=== PATIENT | female | born 1970 | race African-American/Black ===

== ENCOUNTER 2019-10-31 18:57 | Emergency (ER) | payer BC ==
[~2019-10-31] VITALS: Ht 170.2 cm; Wt 99.8 kg
[2019-10-31] MEDS ORDERED: HYDROCODONE/APAP 5MG-325MG TAB PO ONE (21:00)
[2019-10-31] MEDS ORDERED: HYDROCODONE/APAP 5MG-325MG TAB ONE (21:08)
--- NOTE | 2019-10-31 22:00 | Diagnostic Imaging Report ---
Exam: Left foot radiographs-3 views Clinical History: Pain and swelling. Comparison: None. Findings/Impression: No evidence of acute fracture or malalignment. Soft tissue edema in the foot. Small plantar calcaneal spur. Signed by: Dr. Lali Malone MD on 10/31/2019 9:56 PM
--- NOTE | 2019-10-31 22:17 | Emergency Department Note ---
History of Present Illnes History of Present Illness Chief Complaint: Extremity Trauma/Pain History of Present Illness This is a 49 year old female, with a history of hypertension, status post renal transplant, and chronic kidney disease who developed pain in the left great MTP, left great toe, and the soft tissue just below the lateral malleolus. She states it is difficult for her to sleep last night due to the pain. She used ice, and Tylenol without rub, without relief the pain. Patient states that she had lab work done in September, and they did check a uric acid level which was elevated. She was not placed on any uric acid lowering agents at that time, and she states that they recently located a stone in the donor kidney, which may have prompted them to check her uric acid level at that time. She aryan es any fever, chills, nausea, or vomiting. 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 Any updates have been documented here. Past Medical History Recent Fever: No Clinical Suspicion of Infectio: No New/Unexplained Change in Ment: No Past Medical History: Hypertension, Chronic Kidney Disease Past Surgical History: Tubal Ligation Other Surgery: POST KIDNEY TRANSPLANT X10YRS AGO Social History Smoking Cessation: Never Smoker Alcohol Use: None Any Illegal Drug Use: No TB Exposure/Symptoms: No Physically hurt or threatened: No Other Any Pre-Existing Lines (PICC,: No Review of Systems Review of Systems Constitutional: Reports no symptoms; Denies chills, Denies fever, Denies malaise EENTM: Denies no symptoms, Denies as per HPI, Denies eye pain, Denies blurred vision, Denies tearing, Denies double vision, Denies ear pain, Denies ear discharge, Denies nose pain, Denies nose congestion, Denies throat pain, Denies throat swelling, Denies mouth pain, Denies mouth swelling, Denies other Cardiovascular: Reports no symptoms Respiratory: Reports no symptoms Gastrointestinal: Reports no symptoms Musculoskeletal: Reports no symptoms Integumentary: Reports change in color (lateral aspect of the ventral left foot is erythematous, warm to touch) Neurological: Reports no symptoms Psychological: Reports no symptoms Review of other systems: All other systems negative Physical Exam Related Data Allergies: Coded Allergies: promethazine (Verified Allergy, Unknown, 10/31/19) Triage Vital Signs Vital Signs Date Time Temp Pulse Resp B/P (MAP) Pulse Ox O2 Delivery O2 Flow Rate FiO2 10/31/19 19:55 98.2 93 18 135/86 100 Room Air Physical Exam CONSTITUTIONAL Constitutional: Present well-developed, Present well-nourished, Present other (appears uncomfortable, due to left foot pain) HENT HENT: Present normocephalic, Present atraumatic, Present oropharynx clear/moist, Present nose normal HENT L/R: Present left ext ear normal, Present right ext ear normal EYES Eyes: Reports PERRL, Reports conjunctivae normal NECK Neck: Present ROM normal PULMONARY Pulmonary: Present effort normal, Present breath sounds normal CARDIOVASCULAR Cardiovascular: Present regular rhythm, Present heart sounds normal, Present capillary refill normal, Present normal rate GASTROINTESTINAL GENITOURINARY SKIN Skin: Present warm, Present dry, Present erythema (overlying the left MTP and the soft tissue just below the medial aspect of the) MUSCULOSKELETAL Musculoskeletal: Present edema, Present tenderness (warmth, tenderness, erythema, and mild edema of the left great MTP and base of the left great toe, as well as distal to the lateral malleolus with no fluctuance or crepitus;) NEUROLOGICAL Neurological: Present alert, Present oriented x 3 PSYCHOLOGICAL Psychological: Present mood/affect normal, Present judgement normal Results Laboratory Laboratory Laboratory Tests Test 10/31/19 20:16 Uric Acid 9.4 mg/dL (2.6-8.0) Lab results reviewed: Yes Laboratory comments CBC - WBC = 12.2, H/H = 10/34; CMP - nl except Cr = 2.0, ALT = 49, AST = 51, PT = 8.2; Uric Acid = 9.4; prolapse with Imaging Imaging results reviewed: Yes Impressions [place] [id number] Patient Name: KOKO ESPINOZA MR #: [id number] : 1970 Age/Sex: 49/F Req #: [id number] [facility] Physician: Ordered by: SILAS ENGEL MD Report #: [id number] Location: [facility] Room/Bed: Procedure: [id number] HOPD/FOOT 3 VIEW - HOPD Exam Date: 10/31/19 Exam Time: 2104 REPORT STATUS: Signed Exam: Left foot radiographs-3 views Clinical History: Pain and swelling. Comparison: None. Findings/Impression: No evidence of acute fracture or malalignment. Soft tissue edema in the foot. Small plantar calcaneal spur. Signed by: Dr. Kuldip Caldera MD on 10/31/2019 9:56 PM Dictated By: KULDIP CALDERA MD 55 Transcribed By: NIKHIL on 10/31/192155 COPY TO: SLIAS ENGEL MD~ Assessment & Plan Medical Decision Making MDM - Discussed with patient that it is difficult to know for sure, without aspirating the joint, whether or not her symptoms are a result of possible gout versus cellulitis/infection. The foot is exquisitely tender in the cites described in the physical exam. There is no sign of abscess or crepitus. Since patient's uric acid level is elevated, and the distribution of the pain in the foot is similar to that seen with gouty attacks, will treat patient for gout with a higher dose of prednisone,then her usual maintenance dose of 5 mg per day, since we cannot use other agents including NSAIDs and colchicine due to heard CKD. - Patient is provided with a prescription for antibiotics, that she is to start if she begins to have fever, chills, or progressive redness of the left foot. - Keep the left lower actually elevated to the level of the heart as much as possible to help with pain and swelling - Take medications as prescribed. - Once you have finished 7 days of prednisone 20 mg once daily, resume prednisone 5 mg daily, as your maintenance dose for your renal transplant. - Return to the emergency room if you develop high fever, worsening redness of your left foot, worsening pain, nausea, or vomiting. - If the prednisone helps resolve her symptoms, follow-up with your primary care physician for chronic management of gout. - F/u with your PCP, regarding this ER visit Assessment & Plan Final Impression: (1) Gout attack (2) Left foot pain (3) Elevated blood uric acid level (4) CKD (chronic kidney disease) (5) Renal transplant recipient Depart Disposition: HOME, SELF-CARE Last Vital Signs Date Time Temp Pulse Resp B/P (MAP) Pulse Ox O2 Delivery O2 Flow Rate FiO2 10/31/19 19:55 98.2 93 18 135/86 100 Room Air Home Meds Active Scripts Clindamycin Hcl (CLINDAMYCIN HCL) 150 Mg Capsule, 300 MG PO TID for infection, #30 TAB 0 Refills 2 TABS PO TID Prov:SILAS ENGEL MD 10/31/19 Ondansetron (ONDANSETRON ODT) 8 Mg Tab.rapdis, 4 MG PO Q6H PRN for nausea and vomiting, #20 TAB 0 Refills Prov:SILAS ENGEL MD 10/31/19 Prednisone (PREDNISONE) 20 Mg Tab, 1 TAB PO DAILY for inflammation, #7 TAB 0 Refills Prov:SILAS ENGEL MD 10/31/19 Medications in the ED Acetaminophen/ Hydrocodone Bitart 1 ea ONCE ONCE PO Last administered on 10/31/19at 21:08; Admin Dose 1 EA; Start 10/31/19 at 21:00; Stop 10/31/19 at 21:01; Status DC Acetaminophen/ Hydrocodone Bitart 1 ea STK-MED ONCE .ROUTE ; Start 10/31/19 at 21:08; Stop 10/31/19 at 21:05; Status DC SILAS ENGEL MD Oct 31, 2019 22:17
[2019-10-31] MEDS ORDERED: PREDNISONE20 MG PO (22:34)
[2019-10-31] MEDS ORDERED: ONDANSETRON ODT8 MG PO (22:35)
[2019-10-31] MEDS ORDERED: CLINDAMYCIN HC150 MG PO (22:37)
[2019-10-31] MEDS ORDERED: PREDNISONE 20 MG TAB PO ONE (22:45)
[2019-10-31] MEDS ORDERED: PREDNISONE 20 MG TAB ONE (23:02)
[2019-10-31 23:42] VITALS: BP 136/88
== END 2019-10-31 23:03 | disposition home or self-care (01) ==
LOC: FSED 20:20
DX: M79.672 Pain in left foot (principal); M10.9 Gout, unspecified; N18.9 Chronic kidney disease, unspecified; Z94.0 Kidney transplant status
CPT/HCPCS: 36415; 73630; 84550; 99283; J7512

== ENCOUNTER 2019-11-12 13:04 | Emergency (ER) | payer BC ==
[~2019-11-12] VITALS: Ht 170.2 cm; Wt 99.8 kg
[~2019-11-12 13:04] MED LIST: CLINDAMYCIN HC150 MG PO; ONDANSETRON ODT8 MG PO; PREDNISONE20 MG PO
[2019-11-12] MEDS ORDERED: HYDROCODONE/APAP 5MG-325MG TAB PO PRN (13:45)
[2019-11-12] MEDS ORDERED: PREDNISONE 20 MG TAB ONE (13:47)
--- OUTSIDE RECORDS SUMMARY | 2019-11-12 13:59 | XMS REPORT | Continuity of Care Document ---
Author Author Clarence [employer] Address Unknown Phone Unavailable Care Team Providers Care At Risk Paraprofessional Name Role Phone [employer] Unavailable Un available Problems Problem Status Onset Date Classification Date Reported Comments Source Acute upper respiratory infection, unspecified 03/18/2017 03/21/2017 [facility] VOMITING Active 03/17/2017 [facility] Discharge Diagnosis: Acute upper respiratory infection 05/07/2015 05/10/2015 [facility] Discharge Diagnosis: UTI (urinary tract infection) 05/07/2015 05/10/2015 [facility] WEAKNESS Active 05/06/2015 [facility] Discharge Diagnosis: Chronic renal insufficiency 12/18/2013 12/20/2013 [facility] Discharge Diagnosis: Generalized weakness 12/18/2013 12/20/2013 [facility] DIZZY/FATIGUE Active 12/17/2013 [facility] Acute renal failure syndrome (disorder) Resolved Problem 03/21/2017 [facility] Malignant neoplastic disease (disorder) Active Problem 03/21/2017 [facility] Medications Medication Details Route Status Patient Instructions Ordering Provider Order Date Source Sodium Chloride 0.9% (Bolus) IV 1,000 mL, 1,000 ml/hr, Infuse Over: 1 hr, Route: IV, ONCE, Priority: STAT, Dosing Weight 100 kg, Start date: 03/17/17 23:51:00 [employer] MAN, Stop date: 03/17/17 23:51:00 [employer] MAN No Longer Active 03/18/2017 [facility] Zofran 4 mg, Route: IVP, Drug form: INJ, ONCE, Dosing Weight 100, kg, Priority: STAT, Start date: 03/17/17 23:51:00 [employer]LLW[employer] MAN, Stop date: 03/17/17 23:51:00 [employer] MAN No Longe r Active 03/18/2017 [facility] Acetaminophen Notes: Do not ex ceed 4 gm/day. (Same as: Tylenol) No Longer Active 03/18/2017 [facility] 120 ACTUAT mometasone furoate 0.05 MG/AC TUAT Nasal Inhaler [Nasonex] 2 spray, NASAL, Daily, In each nostril, # 17 gm, 1 Refill(s) Active 05/07/2015 [facility] Acetaminophen 300 MG / butalbital 50 MG / Caffeine 40 MG Oral Capsule [Fioricet] 1 cap, PO, Q4H, PRN PRN Headache, Do not exceed 6 capsules in 24 hours, X 2 day, # 10 caplet, 0 Refill(s) No Longer Active 05/07/2015 [facility] Ciprofloxacin 250 MG Oral Tablet [Cipro] 250 mg = 1 tab, PO, Q12H, X 10 day, # 20 tab, 0 Refill(s) Active 05/07/2015 [facility] Cipro Notes: May interfere w/e nteral feedings - Take 1 hr before or 2 hrs after antacids, dairy pdt & minerals. On empty stomach. Inactive 05/07/2015 [facility] Saline Flush 0.9% Notes: (Same as: BD Posiflush) Inactive 12/18/2013 [facility] Allergies, Adverse Reactions, Alerts Substance Category Reaction Severity Reaction type Status Date Reported Comments Source Phenergan Assertion Drug allergy Active [facility] Immunizations Immunization Date Given Site Status Last Updated Comments Source influenza virus vaccine, inactivated 04/10/2013 Not Given [facility] Results Order Name Results Value Reference Range Date Interpretation Comments Source CHEM PANEL Lactic Acid Lvl 1.3 0.5 - 2.2 03/18/2017 [facility] RAPID Grp A Strep Scr Negative (03/18/17 12:57 AM) Negative 03/18/2017 [facility] CARDIAC ENZYMES Total CK 105 12 - 191 03/18/2017 [facility] CARDIAC ENZYMES Troponin-I <0.02 0.00 - 0.40 03/18/2017 [facility] CHEM PANEL Phosphorus 1.9 2.5 - 4.5 03/18/2017 [facility] CHEM PANEL Lipase Lvl 107 73 - 393 03/18/2017 [facility] CHEM PANEL Magnesium Lvl 1.7 1.8 - 2.4 03/18/2017 [facility] CHEM PANEL Calcium Lvl 8.8 8.5 - 10.5 03/18/2017 [facility] CHEM PANEL B/C Ratio 12 6 - 25 03/18/2017 [facility] CHEM PANEL Potassium Lvl 4.7 3.5 - 5.1 03/18/2017 [facility] CHEM PANEL Sodium Lvl 139 135 - 145 03/18/2017 [facility] CHEM PANEL Glucose Lvl 107 70 - 99 03/18/2017 [facility] CHEM PANEL AGAP 11.7 10.0 - 20.0 03/18/2017 [facility] CHEM PANEL CO2 26 24 - 32 03/18/2017 [facility] CHEM PANEL BUN 26 7 - 22 03/18/2017 [facility] CHEM PANEL Creatinine Lvl 2.13 0.50 - 1.40 03/18/2017 [facility] CHEM PANEL A/G Ratio 0.9 0.7 - 1.6 03/18/2017 [facility] CHEM PANEL eGFR 31 03/18/2017 Result Comment: The eGFR is calculated using the CKD-EPI formula. In most young, healthy individuals the eGFR will be >90 mL/min/1.73m2. The eGFR declines with age. An eGFR of 60-89 may be normal in some populations, particularly the elderly, for whom the CKD-EPI formula has not been extensively validated. Use of the eGFR is not recommended in the following populations:

Individuals with unstable creatinine concentrations, including patients and those with serious co-morbid conditions.

Patients with extremes in muscle mass or diet.

The data above are obtained from the National Kidney Disease Education Program (NKDEP) which additionally recommends that when the eGFR is used in patients with extremes of body mass index for purposes of drug dosing, the eGFR should be multiplied by the estimated BMI. [facility] CHEM PANEL ALANINE AMINOTRANSFERASE 37 0 - 65 03/18/2017 [facility] CHEM PANEL Albumin Lvl 3.8 3.5 - 5.0 03/18/2017 [facility] CHEM PANEL Globulin 4.1 2.7 - 4.2 03/18/2017 [facility] CHEM PANEL Total Protein 7.9 6.4 - 8.4 03/18/2017 [facility] CHEM PANEL Chloride Lvl 106 95 - 109 03/18/2017 [facility] CHEM PANEL ASPARTATE TRANSAMINASE 19 0 - 37 03/18/2017 [facility] CHEM PANEL Bili Total 0.7 0.2 - 1.3 03/18/2017 [facility] CHEM PANEL Alk Phos 90 39 - 136 03/18/2017 [facility] HEMATOLOGY WBC 7.7 3.7 - 10.4 03/18/2017 [facility] HEMATOLOGY RBC 4.05 4.20 - 5.40 03/18/2017 [facility] HEMATOLOGY MPV 6.8 7.4 - 10.4 03/18/2017 [facility] [place] MCHC 31.7 32.0 - 36.0 03/18/2017 [facility] [place] RDW 13.7 11.5 - 14.5 03/18/2017 [facility] Platelet 258 133 - 450 03/18/2017 [facility] Hgb 11.0 12.0 - 16.0 03/18/2017 [facility] [place] Hct 34.5 36.0 - 48.0 03/18/2017 [facility] [place] MCV 85.4 80.0 - 98.0 03/18/2017 [facility] [place] MCH 27.1 27.0 - 31.0 03/18/2017 [facility] [place] Lymphocytes 4.0 20.0 - 40.0 03/18/2017 [facility] [place] Segs 85.7 45.0 - 75.0 03/18/2017 [facility] [place] Monocytes # 0.8 0.0 - 0.8 03/18/2017 [facility] [place] Lymphocytes # 0.3 1.0 - 5.5 03/18/2017 [facility] [place] Segs-Bands # 6.6 1.5 - 8.1 03/18/2017 [facility] [place] Basophils 0.2 0.0 - 1.0 03/18/2017 [facility] [place] Toxic Gran Moder ate *ABN* (03/17/17 11:42 PM) None Seen 03/18/2017 [facility] [place] Eosinophils 0.1 0.0 - 4.0 03/18/2017 [facility] [place] Monocytes 10.0 2.0 - 12.0 03/18/2017 [facility] [place] Plt Morph Hedy l (03/17/17 11:42 PM) 03/18/2017 [facility] [place] RBC Morph Hedy l (03/17/17 11:42 PM) 03/18/2017 [facility] URINE AND STOOL UA Urobilinogen <=1.0 mg/dL 0.1 - 1.0 03/18/[address] [facility] [address] URINE AND STOOL UA Color Ltyellow 03/18/2017 [facility] URINE AND STOOL UA Leuk Est Negative (03/17/17 11:42 PM) Negative 03/18/2017 [facility] URINE AND STOOL UA Bacteria Occasional /HPF None Seen /HPF 03/18/[address] [facility] [address] URINE AND STOOL UA RBC 32 0 - 2 03/18/2017 [facility] URINE AND STOOL UA WBC 2 0 - 5 03/18/2017 [facility] URINE AND STOOL UA Nitrite Negative (03/17/17 11:42 PM) Negative 03/18/2017 [facility] URINE AND STOOL UA Blood Large *ABN* (03/17/17 11:42 PM) Negative 03/18/2017 [facility] URINE AND STOOL UA Sq Epi Occasional /LPF Few /LPF 03/18/2017 [facility] URINE AND STOOL UA Glucose Negative mg/dL Negative mg/dL 03/18/2017 [facility] URINE AND STOOL UA Bili Negative *NA* (03/17/17 11:42 PM) Negative 03/18/2017 [facility] URINE AND STOOL UA Ketones Negative mg/dL Negative mg/dL 03/18/2017 [facility] URINE AND STOOL UA Protein Negative mg/dL Negative mg/dL 03/18/2017 [facility] URINE AND STOOL UA pH 8.0 5.0 - 8.0 03/18/2017 [facility] URINE AND STOOL UA Turbidity Clear (03/17/17 11:42 PM) Clear 03/18/2017 [facility] URINE AND STOOL UA Spec Grav 1.013 <=1.030 03/18/2017 [facility] VIRAL - SEROLOGY Influ A Negative (03/17/17 11:42 PM) Negative 03/18/2017 [facility] VIRAL - SEROLOGY Influ B Negative (03/17/17 11:42 PM) Negative 03/18/2017 [facility] RAPID Grp A Strep Scr Negative (05/06/15 10:23 PM) Negative 05/07/2015 [facility] VIRAL - SEROLOGY Influ B Negative (05/06/15 10:23 PM) Negative 05/07/2015 [facility] VIRAL - SEROLOGY Influ A Negative (05/06/15 10:23 PM) Negative 05/07/2015 [facility] CHEM PANEL Globulin 3.9 2.0 - 4.0 05/07/2015 [facility] CHEM PANEL A/G Ratio 0.9 0.7 - 1.6 05/07/2015 [facility] CHEM PANEL AGAP 11.7 10.0 - 20.0 05/07/2015 [facility] CHEM PANEL B/C Ratio 11 6 - 25 05/07/2015 [facility] CHEM PANEL eGFR 29 05/07/2015 Result Comment: The eGFR is calculated using the CKD-EPI formula. In most young, healthy individuals the eGFR will be >90 mL/min/1.73m2. The eGFR declines with age. An eGFR of 60-89 may be normal in some populations, particularly the elderly, for whom the CKD-EPI formula has not been extensively validated. Use of the eGFR is not recommended in the following populations:

Individuals with unstable creatinine concentrations, including patients and those with serious co-morbid conditions.

Patients with extremes in muscle mass or diet.

The data above are obtained from the National Kidney Disease Education Program (NKDEP) which additionally recommends that when the eGFR is used in patients with extremes of body mass index for purposes of drug dosing, the eGFR should be multiplied by the estimated BMI. [facility] CHEM PANEL BUN 26 7 - 22 05/07/2015 [facility] CHEM PANEL Creatinine Lvl 2.28 0.50 - 1.40 05/07/2015 [facility] CHEM PANEL Sodium Lvl 139 135 - 145 05/07/2015 [facility] CHEM PANEL Glucose Lvl 106 70 - 99 05/07/2015 [facility] CHEM PANEL Alk Phos 81 39 - 136 05/07/2015 [facility] CHEM PANEL Bili Total 0.4 0.2 - 1.3 05/07/2015 [facility] CHEM PANEL AST 20 0 - 37 05/07/2015 [facility] CHEM PANEL ALT 34 0 - 65 05/07/2015 [facility] CHEM PANEL Total Protein 7.6 6.4 - 8.4 05/07/2015 [facility] CHEM PANEL Albumin Lvl 3.7 3.5 - 5.0 05/07/2015 [facility] CHEM PANEL Calcium Lvl 9.3 8.5 - 10.5 05/07/2015 [facility] CHEM PANEL Chloride Lvl 105 95 - 109 05/07/2015 [facility] CHEM PANEL CO2 27 24 - 32 05/07/2015 [facility] CHEM PANEL Potassium Lvl 4.7 3.5 - 5.1 05/07/2015 [facility] HEMATOLOGY Hct 34.5 36.0 - 48.0 05/07/2015 [facility] HEMATOLOGY MCV 88.1 80.0 - 98.0 05/07/2015 [facility] HEMATOLOGY MCH 27.4 27.0 - 31.0 05/07/2015 [facility] HEMATOLOGY RDW 13.9 11.5 - 14.5 05/07/2015 [facility] HEMATOLOGY Platelet 208 133 - 450 05/07/2015 [facility] HEMATOLOGY MCHC 31.1 32.0 - 36.0 05/07/2015 [facility] HEMATOLOGY MPV 7.0 7.4 - 10.4 05/07/2015 [facility] HEMATOLOGY WBC 6.6 3.7 - 10.4 05/07/2015 [facility] HEMATOLOGY RBC 3.92 4.20 - 5.40 05/07/2015 [facility] HEMATOLOGY Hgb 10.7 12.0 - 16.0 05/07/2015 [facility] HEMATOLOGY Segs 74.5 45.0 - 75.0 05/07/2015 [facility] HEMATOLOGY Lymphocytes # 0.7 1.0 - 5.5 05/07/2015 [facility] HEMATOLOGY Monocytes # 0.8 0.0 - 0.8 05/07/2015 [facility] HEMATOLOGY Monocytes 12.5 2.0 - 12.0 05/07/2015 [facility] HEMATOLOGY Segs-Bands # 4.9 1.5 - 8.1 05/07/2015 [facility] HEMATOLOGY Basophils 0.2 0.0 - 1.0 05/07/2015 [facility] HEMATOLOGY Eosinophils # 0.1 0.0 - 0.5 05/07/2015 [facility] HEMATOLOGY Eosinophils 1.4 0.0 - 4.0 05/07/2015 [facility] HEMATOLOGY Lymphocytes 11.4 20.0 - 40.0 05/07/2015 [facility] URINE AND STOOL UA Mucus Few /LPF None Seen /LPF 05/07/2015 [facility] URINE AND STOOL UA Bacteria Occasional /HPF None Seen /HPF 05/07/2015 [facility] URINE AND STOOL UA WBC 6 0 - 5 05/07/2015 [facility] URINE AND STOOL UA RBC 2 0 - 2 05/07/2015 [facility] URINE AND STOOL UA Sq Epi Few /LPF Few /LPF 05/07/2015 [facility] URINE AND STOOL UA Leuk Est Moderate *ABN* (05/06/15 8:51 PM) Negative 05/07/2015 [facility] URINE AND STOOL UA Nitrite Negative (05/06/15 8:51 PM) Negative 05/07/2015 [facility] URINE AND STOOL UA Turbidity Clear (05/06/15 8:51 PM) Clear 05/07/2015 [facility] URINE AND STOOL UA Color Yellow *NA* (05/06/15 8:51 PM) Yellow 05/07/2015 [facility] URINE AND STOOL UA Glucose Negative mg/dL Negative mg/dL 05/07/2015 [facility] URINE AND STOOL UA Protein Negative mg/dL Negative mg/dL 05/07/2015 [facility] URINE AND STOOL UA Spec Grav 1.019 <=1.030 05/07/2015 [facility] URINE AND STOOL UA pH 6.0 5.0 - 8.0 05/07/2015 [facility] URINE AND STOOL UA Urobilinogen 2.0 0.1 - 1.0 05/07/2015 [facility] URINE AND STOOL UA Blood Small *ABN* (05/06/15 8:51 PM) Negative 05/07/2015 [facility] URINE AND STOOL UA Bili Negative *NA* (05/06/15 8:51 PM) Negative 05/07/2015 [facility] URINE AND STOOL UA Ketones Negative mg/dL Negative mg/dL 05/07/2015 [facility] URINE CHEM U Preg Negat radha (05/06/15 8:51 PM) Negative 05/07/2015 [facility] CARDIAC ENZYMES Troponin-I <0.02 0.00 - 0.40 12/18/2013 [facility] CARDIAC ENZYMES CK MB <0.5 0.5 - 3.6 12/18/2013 [facility] CARDIAC ENZYMES Total CK 95 12 - 191 12/18/2013 [facility] CARDIAC ENZYMES CK MB Index <0.5 0.0 - 2.5 12/18/2013 [facility] CHEM PANEL eGFR 29 12/18/2013 <sup>1</sup>Result Comment: The eGFR is calculated using the CKD-EPI formula. In most young, healthy individuals the eGFR will be >90 mL/min/1.73m2. The eGFR declines with age. An eGFR of 60-89 may be normal in some populations, particularly the elderly, for whom the CKD-EPI formula has not been extensively validated. Use of the eGFR is not recommended in the following populations:& lt;br/>
Individuals with unstable creatinine concentrations, including patients and those with serious co-morbid conditions.

Patients with extremes in muscle mass or diet.

The data above are obtained from the National Kidney Disease Education Program (NKDEP) which additionally recommends that when the eGFR is used in patients with extremes of body mass index for purposes of drug dosing, the eGFR should be multiplied by the estimated BMI. [facility] CHEM PANEL Globulin 3.8 2.0 - 4.0 12/18/2013 [facility] CHEM PANEL B/C Ratio 10 6 - 25 12/18/2013 [facility] CHEM PANEL A/G Ratio 1.0 0.7 - 1.6 12/18/2013 [facility] CHEM PANEL Glucose Lvl 107 70 - 99 12/18/2013 <sup>2</sup>Interpretive Data: Adult ref erence range values reflect the clinical guidelines
of the [place] [employer]. [facility] CHEM PANEL Creatinine Lvl 2.3 0.5 - 1.4 12/18/2013 [facility] CHEM PANEL BUN 24 7 - 22 12/18/2013 [facility] CHEM PANEL Potassium Lvl 4.4 3.5 - 5.1 12/18/2013 [facility] CHEM PANEL CO2 23 24 - 32 12/18/2013 [facility] CHEM PANEL Sodium Lvl 137 135 - 145 12/18/2013 [facility] CHEM PANEL Chloride Lvl 108 95 - 109 12/18/2013 [facility] CHEM PANEL Albumin Lvl 3.9 3.5 - 5.0 12/18/2013 [facility] CHEM PANEL Total Protein 7.7 6.4 - 8.4 12/18/2013 [facility] CHEM PANEL Calcium Lvl 8.9 8.5 - 10.5 12/18/2013 [facility] CHEM PANEL AST 20 0 - 37 12/18/2013 [facility] CHEM PANEL ALT 30 0 - 65 12/18/2013 [facility] CHEM PANEL Alk Phos 80 39 - 136 12/18/2013 [facility] CHEM PANEL AGAP 10.4 10.0 - 20.0 12/18/2013 [facility] CHEM PANEL Bili Total 0.5 0.2 - 1.3 12/18/2013 [facility] HEMATOLOGY MCHC 32.7 32.0 - 36.0 12/18/2013 [facility] HEMATOLOGY MCH 29.0 27.0 - 31.0 12/18/2013 [facility] HEMATOLOGY MCV 88.6 80.0 - 98.0 12/18/2013 [facility] HEMATOLOGY Hct 31.8 36.0 - 48.0 12/18/2013 [facility] HEMATOLOGY Hgb 10.4 12.0 - 16.0 12/18/2013 [facility] HEMATOLOGY MPV 7.6 7.4 - 10.4 12/18/2013 [facility] HEMATOLOGY Platelet 208 133 - 450 12/18/2013 [facility] HEMATOLOGY RDW 13.8 11.5 - 14.5 12/18/2013 [facility] HEMATOLOGY RBC 3.59 4.20 - 5.40 12/18/2013 [facility] HEMATOLOGY WBC 9.6 3.7 - 10.4 12/18/2013 [facility] HEMATOLOGY INR 1.03 0.85 - 1.17 12/18/2013 <sup>3</sup>Interpretive Data: RECOMMEND ED RANGES FOR PROTIME INR:
2.0-3.0 for most medical and surgical thromboembolic states.
2.5-3.5 for artificial heart valves and recurrent embolism.

INR SHOULD BE USED ONLY FOR PATIENTS ON STABLE ANTICOAGULANT THERAPY. [facility] HEMATOLOGY PTT 31.5 22.9 - 35.8 12/18/2013 <sup>4</sup>Interpretive Data: Heparin T herapeutic Range: 57 - 92 Seconds [facility] HEMATOLOGY PT 13.5 12.0 - 14.7 12/18/2013 [facility] HEMATOLOGY Basophils 0.2 0.0 - 1.0 12/18/2013 [facility] HEMATOLOGY Eosinophils 0.2 0.0 - 4.0 12/18/2013 [facility] HEMATOLOGY Monocytes 8.2 2.0 - 12.0 12/18/2013 [facility] HEMATOLOGY Lymphocytes 17.6 20.0 - 40.0 12/18/2013 [facility] HEMATOLOGY Segs 73.8 45.0 - 75.0 12/18/2013 [facility] HEMATOLOGY Lymphocytes # 1.7 1.0 - 5.5 12/18/2013 [facility] [place] Segs-Bands # 7.1 1.5 - 8.1 12/18/2013 [facility] [place] Monocytes # 0.8 0.0 - 0.8 12/18/2013 [facility] URINE AND STOOL UA Color Ltyellow 12/18/2013 [facility] URINE AND STOOL UA Urobilinogen 2.0 0.1 - 1.0 12/18/2013 [facility] URINE AND STOOL UA Nitrite Negative (12/18/13 12:45 AM) Negative 12/18/2013 [facility] URINE AND STOOL UA Leuk Est Negative (12/18/13 12:45 AM) Negative 12/18/2013 [facility] URINE AND STOOL UA Sq Epi Occasional /LPF Few /LPF 12/18/2013 [facility] URINE AND STOOL UA Blood Negative (12/18/13 12:45 AM) Negative 12/18/2013 [facility] URINE AND STOOL UA RBC 2 0 - 2 12/18/2013 [facility] URINE AND STOOL UA Bacteria Occasional /HPF None Seen /HPF 12/18/2013 [facility] URINE AND STOOL UA WBC <1 0 - 5 12/18/2013 [facility] URINE AND STOOL UA Turbidity Clear (12/18/13 12:45 AM) Clear 12/18/2013 [facility] URINE AND STOOL UA Protein Negative mg/dL Negative mg/dL 12/18/2013 [facility] URINE AND STOOL UA pH 6.0 5.0 - 8.0 12/18/2013 [facility] URINE AND STOOL UA Spec Grav 1.011 <=1.030 12/18/2013 [facility] URINE AND STOOL UA Ketones Negative mg/dL Negative mg/dL 12/18/2013 [facility] URINE AND STOOL UA Glucose Negative mg/dL Negative mg/dL 12/18/2013 [facility] URINE AND STOOL UA Bili Negative *NA* (12/18/13 12:45 AM) Negative 12/18/2013 [facility] Pathology Reports No Data Provided for This Section Diagnostic Reports Report Value Date Source Chest 1view DX EXAM: Chest x-r ay one view (frontal) HISTORY: - dyspnea. COMPARISON: 05/06/2015 FINDINGS: Mediastinum: The cardiomediastinal contours are unremarkable. Lungs and pleura: No focal consolidation, pleural effusion or pneumothorax. The pulmonary vascularity is normal. No acute osseous displaced abnormality is noted. IMPRESSION: No radiographic evidence of an acute cardiopulmonary process. SL: MAURICE 03/18/2017 [facility] Chest 2 views DX PA and latera l chest: The cardiac silhouette and pulmonary vasculature are within normal limits. The lungs and pleural spaces are clear. There is no significant change compared to 12/18/2013. IMPRESSION: No acute radiographic abnormality in the chest. SL:13 05/06/2015 [facility] Consultation Notes No Data Provided for This Section Discharge Summaries No Data Provided for This Section History and Physicals No Data Provided for This Section Vital Signs Vital Sign Value Date Comments Source Systolic (mm Hg) 133 03/18/2017 [facility] Diastolic (mm Hg) 96 03/18/2017 [facility] Respitory Rate 19 03/18/2017 [facility] Temperature Oral (F) 99.2 F 03/18/2017 [facility] Heart Rate 93 03/18/2017 [facility] Weight 100 03/18/2017 [facility] BMI Calculated 34.53 03/18/2017 [facility] Height 170.18 cm 03/18/2017 [facility] Respitory Rate 20 03/18/2017 [facility] Heart Rate 92 03/18/2017 [facility] Systolic (mm Hg) 148 03/18/2017 [facility] Diastolic (mm Hg) 90 03/18/2017 [facility] Temperature Oral (F) 100.4 F 03/18/2017 [facility] Systolic (mm Hg) 141 05/07/2015 [facility] Respitory Rate 18 05/07/2015 [facility] Diastolic (mm Hg) 90 05/07/2015 [facility] Temperature Oral (F) 97.5 F 05/07/2015 [facility] Heart Rate 70 05/07/2015 [facility] Weight 96.818 05/07/2015 [facility] BMI Calculated 33.43 05/07/2015 [facility] Height 170.18 cm 05/07/2015 [facility] Systolic (mm Hg) 135 05/07/2015 [facility] Diastolic (mm Hg) 91 05/07/2015 [facility] Heart Rate 69 05/07/2015 [facility] Respitory Rate 16 05/07/2015 [facility] Temperature Oral (F) 98.3 F 05/07/2015 [facility] Systolic (mm Hg) 148 12/18/2013 [facility] Diastolic (mm Hg) 91 12/18/2013 [facility] Respitory Rate 19 12/18/2013 [facility] Diastolic (mm Hg) 89 12/18/2013 [facility] Systolic (mm Hg) 147 12/18/2013 [facility] Respitory Rate 19 12/18/2013 [facility] Systolic (mm Hg) 156 12/18/2013 [facility] Respitory Rate 17 12/18/2013 [facility] Diastolic (mm Hg) 97 12/18/2013 [facility] BMI Calculated 31.7 12/18/2013 [facility] Weight 91.818 12/18/2013 [facility] Height 170.18 cm 12/18/2013 [facility] Temperature Oral (F) 98.8 F 12/18/2013 [facility] Heart Rate 69 12/18/2013 [facility] Encounters Location Location Details Encounter Type Encounter Number Reason For Visit Attending Provider ADM Date DC Date Status Source [facility] [id number] 04 Asael Kebede 12/18/2013 12/18/2013 [facility] [place] [facility] [id number] Summer Umang 05/06/2015 05/07/2015 [facility] [id number] Summer Umang 03/18/2017 03/18/2017 [facility] Procedures Procedure Code Date Perfomer Comments Source Kidney transplant [id number] [facility] Assessment and Plan No Data Provided for This Section Plan of Care No Data Provided for This Section Social History Social History Date Source Social History TypeResponse Smoking Status Never smoker; Exposure to Tobacco Smoke None; Cigarette Smoking Last 365 Days No; Reg Smoking Cessation Counseling No 03/18/2017 [facility] Family History No Data Provided for This Section Advance Directives No Data Provided for This Section Functional Status No Data Provided for This Section
--- OUTSIDE RECORDS SUMMARY | 2019-11-12 13:59 | XMS REPORT | Clinical Summary ---
Author Author JEEVAN [facility] Address Unknown Phone Unavailable Care Team Providers Care Gelatin Maker Utility Name Role Phone Pcp, No PCP Unavailable Allergies Comments Active Allergy Reactions Severity Noted Date hallucinations Promethazine 02/09/2013 Medications End Date Status Medication Sig Dispensed Refills Start Date Active predniSONE (DELTASONE) 5 TAKE 1 TABLET 95 tablet 3 07/09/201 MG tablet BY MOUTH 3 EVERY DAY Active metoprolol (TOPROL-XL) 50 Take 50 mg by 0 MG 24 hr tablet mouth daily. Active multivitamin per tablet Take 1 tablet 0 by mouth daily. Active ondansetron (ZOFRAN) 4 MG Take 1 tablet 20 tablet 1 tablet (4 mg total) 7 by mouth every 8 (eight) hours as needed for Nausea. 09/18/2020 Active cycloSPORINE modified Take 1 30 capsule 11 (NEORAL) 100 MG capsule capsule (100 0 mg total) by mouth Daily (1800). 09/19/2020 Active cycloSPORINE modified Take 3 90 capsule 11 09/10 (NEORAL) 25 MG capsule capsules (75 0 mg total) by mouth Daily (0600). 09/18/2020 Active mycophenolate (MYFORTIC) Take 1 tablet 60 tablet 11 180 MG EC tablet (180 mg 0 total) by mouth 2 (two) times daily. 09/19/2020 Active amLODIPine (NORVASC) 5 MG Take 1 tablet 30 tablet 1 tablet (5 mg total) 0 by mouth daily. 09/18/2020 Active magnesium oxide (MAG-OX) Take 1 tablet 60 tablet 11 400 mg (241.3 mg (400 mg 0 magnesium) tablet total) by mouth 2 (two) times daily. 09/19/2019 Discontinued MYFORTIC 180 mg EC tablet TAKE 3 TABLET 180 tablet 3 BY MOUTH 3 TWICE A DAY 09/19/2019 Discontinued cycloSPORINE modified Take 100 mg 0 (NEORAL) 100 MG capsule by mouth 2 (two) times daily. 12/27/2018 cefpodoxime (VANTIN) 100 Take 1 tablet 14 tablet 0 MG tablet (100 mg 9 total) by mouth 2 (two) times daily for 7 days. 09/19/2019 Discontinued doxycycline (VIBRAMYCIN) Take 100 mg 0 100 MG capsule by mouth 2 (two) times daily. 09/24/2019 amoxicillin (AMOXIL) 500 Take 1 10 capsule 0 0 MG capsule capsule (500 0 mg total) by mouth 2 (two) times daily for 5 days. Active Problems Problem Noted Date UTI (urinary tract infection) due to Enterococcus Lower abdominal pain 09/12/2019 Acute urinary tract infection 10/28/2018 WILIAN (acute kidney injury) 03/09/2018 Acute cystitis without hematuria 03/09/2018 Renal transplant recipient 03/09/2018 HCAP (healthcare-associated pneumonia) 05/04/2016 H/O kidney transplant 03/09/2016 Stage 3 chronic kidney disease 11/02/2015 Essential hypertension with goal blood pressure less than 130/80 11/02/2015 Encounters Care Team Description Date Type Specialty Ricci Duran MD Giveon, Ron, MD Lower abdominal pain (Primary Dx); Essential hypertension with goal blood pressure less than 130/80; H/O kidney transplant 09/12/2019 Hospital Intensive Care - Encounter 09/19/2019 09/12/2019 Travel Paula Bonner Appointment 09/11/2019 Telephone Transplant Dylan Zhang MD Urinary tract infection without hematuri a, site unspecified (Primary Dx); Dizziness; Chronic kidney disease, unspecified CKD stage 12/20/2018 Emergency Emergency Medicine 12/20/2018 Orders Only General Internal Me dicine 12/20/2018 Travel after 11/11/2018 Immunizations Name Dates Previously Given Next Due Pneumococcal Conjugate 09/16/2019 (Prevnar) 13-Valent Family History Medical History Relation Name Comments Depression Daughter Cancer Mother Kidney disease Mother Relation Name Status Comments Daughter Mother Social History Date Tobacco Use Types Packs/Day Years Used Never Smoker Smokeless Tobacco: Never Used Alcohol Use Drinks/Week oz/Week Comments No Sex Assigned at Date Recorded Not on file Industry Job Start Date Occupation Not on file Not on file Not on file Travel End Travel History Travel Start No recent travel history available. Last Filed Vital Signs Time Taken Vital Sign Reading 09/19/2019 11:25 AM CDT Blood Pressure 127/82 09/19/2019 11:25 AM CDT Pulse 71 09/19/2019 11:25 AM CDT Temperature 36.5 C (97.7 F) 09/19/2019 11:25 AM CDT Respiratory Rate 18 09/19/2019 11:25 AM CDT Oxygen Saturation 100% - Inhaled Oxygen - Concentration 09/19/2019 6:00 AM CDT Weight 99.6 kg (219 lb 9.3 oz) 09/12/2019 2:13 PM CDT Height 170.2 cm (5' 7") 09/19/2019 6:00 AM CDT Body Mass Index 34.39 Plan of Treatment Health Maintenance Due Date Last Done Comments CERVICAL CANCER SCREENING 1992 PAP ONLY (Age 21-65) INFLUENZA VACCINE (#1) 2019 02/21/2015 PNEUMOCOCCAL VACCINE 2-64 Completed 09/16/2019, 2015, 04/23/2007 YEARS AT RISK Procedures Comments Procedure Name Priority Date/Time Associated Diag nosis CYCLOSPORINE LEVEL Routine 09/19/2019 5:25 AM CDT CBC W/PLT COUNT & AUTO Routine 09/19/2019 DIFFERENTIAL 5:24 AM CDT CBC W/PLT COUNT & AUTO Routine 09/19/2019 DIFFERENTIAL 5:24 AM CDT MAGNESIUM Routine 09/19/2019 5:24 AM CDT BASIC METABOLIC PANEL (7) Routine 09/19/2019 5:24 AM CDT BASIC METABOLIC PANEL (7) Routine 09/18/2019 11:25 AM CDT CBC W/PLT COUNT & AUTO Routine 09/18/2019 DIFFERENTIAL 5:17 AM CDT CBC W/PLT COUNT & AUTO Routine 09/18/2019 DIFFERENTIAL 5:17 AM CDT MAGNESIUM Routine 09/18/2019 5:17 AM CDT BASIC METABOLIC PANEL (7) Routine 09/18/2019 5:[address] BRAIN WITHOUT IV Routine 09/17/2019 CONTRAST 3:16 PM CDT URINALYSIS W/ REFLEX Routine 09/17/2019 URINE CULTURE 11:39 AM CDT CBC W/PLT COUNT & AUTO Routine 09/17/2019 DIFFERENTIAL 5:38 AM CDT CBC W/PLT COUNT & AUTO Routine 09/17/2019 DIFFERENTIAL 5:38 AM CDT MAGNESIUM Routine 09/17/2019 5:38 AM CDT BASIC METABOLIC PANEL (7) Routine 09/17/2019 5:38 AM CDT CBC W/PLT COUNT & AUTO Routine 09/16/2019 DIFFERENTIAL 5:52 AM CDT CYCLOSPORINE LEVEL Routine 09/16/2019 5:52 AM CDT CBC W/PLT COUNT & AUTO Routine 09/16/2019 DIFFERENTIAL 5:52 AM CDT MAGNESIUM Routine 09/16/2019 5:52 AM CDT BASIC METABOLIC PANEL (7) Routine 09/16/2019 5:[address] ABDOMEN/PELVIS WITHOUT Routine 09/15/2019 IV CONTRAST 7:26 PM CDT CBC W/PLT COUNT & AUTO Routine 09/15/2019 DIFFERENTIAL 5:46 AM CDT URIC ACID Routine 09/15/2019 5:46 AM CDT VANCOMYCIN LEVEL, RANDOM Routine 09/15/2019 5:46 AM CDT CYCLOSPORINE LEVEL Routine 09/15/2019 5:46 AM CDT CBC W/PLT COUNT & AUTO Routine 09/15/2019 DIFFERENTIAL 5:46 AM CDT MAGNESIUM Routine 09/15/2019 5:46 AM CDT BASIC METABOLIC PANEL (7) Routine 09/15/2019 5:46 AM CDT CBC W/PLT COUNT & AUTO Routine 09/14/2019 DIFFERENTIAL 5:48 AM CDT CYCLOSPORINE LEVEL Routine 09/14/2019 5:48 AM CDT CBC W/PLT COUNT & AUTO Routine 09/14/2019 DIFFERENTIAL 5:48 AM CDT MAGNESIUM Routine 09/14/2019 5:48 AM CDT BASIC METABOLIC PANEL (7) Routine 09/14/2019 5:48 AM CDT CBC W/PLT COUNT & AUTO Routine 09/13/2019 DIFFERENTIAL 6:13 AM CDT CBC W/PLT COUNT & AUTO Routine 09/13/2019 DIFFERENTIAL 6:13 AM CDT MAGNESIUM Routine 09/13/2019 6:13 AM CDT BASIC METABOLIC PANEL (7) Routine 09/13/2019 6:13 AM CDT HEPATIC FUNCTION PANEL STAT 09/13/2019 6:13 AM CDT BLOOD CULTURE Routine 09/13/2019 6:13 AM CDT XR ABDOMEN / KUB 1 VIEW STAT 09/12/2019 8:44 PM CDT US TRANSPLANT KIDNEY SACHIN 09/12/2019 7:05 PM CDT SARS-COV2/RT-PCR ([facility] & STAT 09/12/2019 REF LABS) 5:16 PM CDT PHOSPHORUS STAT 09/12/2019 5:11 PM CDT TROPONIN I STAT 09/12/2019 5:11 PM CDT MAGNESIUM STAT 09/12/2019 5:11 PM CDT URINALYSIS W/ REFLEX STAT 09/12/2019 URINE CULTURE 4:01 PM CDT URINE CULTURE STAT 09/12/2019 4:01 PM CDT CBC W/PLT COUNT & AUTO STAT 09/12/2019 DIFFERENTIAL 3:42 PM CDT BASIC METABOLIC PANEL (7) STAT 09/12/2019 3:42 PM CDT CBC W/PLT COUNT & AUTO STAT 09/12/2019 DIFFERENTIAL 3:42 PM CDT REPORT OF PROCEDURE - 12/22/2018 ENDOSCOPY SCAN 5:00 PM CDT CBC W/PLT COUNT & AUTO STAT 12/20/2018 DIFFERENTIAL 5:47 PM CDT PT/APTT STAT 12/20/2018 5:47 PM CDT CBC W/PLT COUNT & AUTO STAT 12/20/2018 DIFFERENTIAL 5:47 PM CDT TROPONIN I STAT 12/20/2018 5:47 PM CDT B-TYPE NATRIURETIC FACTOR STAT 12/20/2018 (BNP) 5:47 PM CDT MAGNESIUM STAT 12/20/2018 5:47 PM CDT BASIC METABOLIC PANEL (7) STAT 12/20/2018 5:47 PM CDT XR CHEST 1 VIEW STAT 12/20/2018 PORTABLE/BEDSIDE 4:[address] BRAIN WITHOUT IV STAT 12/20/2018 CONTRAST 4:43 PM CDT URINALYSIS W/ REFLEX STAT 12/20/2018 URINE CULTURE 4:20 PM CDT URINE CULTURE STAT 12/20/2018 4:20 PM CDT ECG 12-LEAD STAT 12/20/2018 3:59 PM CDT after 11/11/2018 Results * Cyclosporine level (09/19/2019 5:25 AM CDT) Only the most recent of 4 results within the time period is included. Cyclosporine Lvl 118 <400 ng/mL [facility] Specimen Blood Narrative Performed At Clinical Documentation Manager ID - KRYSTIAN M [facility] Performing Organization Address City/State/Zipcode Ph one Number [place] [phone] [facility] * CBC with platelet count + automated diff (09/19/2019 5:24 AM CDT) Only the most recent of 9 results within the time period is included. WBC 10.2 3.5 - 10.5 K/L [facility] RBC 3.52 (L) 3.93 - 5.22 M/L [facility] Hemoglobin 9.8 (L) 11.2 - 15.7 GM/DL [facility] Hematocrit 31.9 (L) 34.1 - 44.9 % [facility] MCV 90.6 79.4 - 94.8 fL [facility] MCH 27.8 25.6 - 32.2 pg [facility] MCHC 30.7 (L) 32.2 - 35.5 GM/DL [facility] RDW 13.2 11.7 - 14.4 % [facility] Platelets 212 150 - 450 K/CU MM [facility] MPV 9.4 9.4 - 12.3 fL [facility] nRBC 0 0 - 0 /100 WBC [facility] % Neutros 72 % [facility] % Lymphs 17 % [facility] % Monos 10 % [facility] % Eos 1 % [facility] % Baso 0 % [facility] # Neutros 7.33 (H) 1.56 - 6.13 K/L [facility] # Lymphs 1.68 1.18 - 3.74 K/L [facility] # Monos 1.05 (H) 0.24 - 0.36 K/L [facility] # Eos 0.08 0.04 - 0.36 K/L [facility] # Baso 0.02 0.01 - 0.08 K/L [facility] Immature 0 0 - 1 % [facility] Granulocytes-[facility] Specimen Blood Performing Organization Address [facility] Ph one Number [place] [phone] * Magnesium (09/19/2019 5:24 AM CDT) Only the most recent of 9 results within the time period is included. Magnesium 1.8 1.6 - 2.6 mg/dL [facility] Specimen Blood Narrative Performed At Clinical Documentation Manager ID - WILFRED Juares [facility] Performing Organization Address City/[facility] Ph one Number [place] [phone] [place] [address] * Basic Metabolic Panel (09/19/2019 5:24 AM CDT) Only the most recent of 10 results within the time period is included. Sodium 136 136 - 145 meq/L [facility] Potassium 4.2 3.5 - 5.1 meq/L [facility] Chloride 106 98 - 107 meq/L [facility] CO2 22 22 - 29 meq/L [facility] BUN 36 (H) 7 - 21 mg/dL [facility] Creatinine 2.35 (H) 0.57 - 1.25 mg/dL [facility] Glucose 91 70 - 105 mg/dL [facility] Calcium 9.2 8.4 - 10.2 mg/dL [facility] EGFR 27Comment: ESTIMATED GFR IS mL/min/1.73 sq [facility] NOT ACCURATE CREATININE [facility] CLEARANCE IN PREDICTING GLOMERULAR FILTRATION RATE. ESTIMATED GFR IS NOT APPLICABLE FOR DIALYSIS PATIENTS. Specimen Blood Narrative Performed At Clinical Documentation Manager ID - WILFRED M [facility] Performing Organization Address City/State/Zipcode Ph one Number [place] [phone] [facility] * CT brain without IV contrast (09/17/2019 3:16 PM CDT) Only the most recent of 2 results within the time period is included. Specimen Narrative Performed At FINAL REPORT [facility] EXAM: CT, BRAIN, WITHOUT CONTRAST CLINICAL INDICATION: Headache. TECHNIQUE:CT images from skull base to vertex without IV contrast. This exam was performed according to [facility] departmental dose optimization program which includes aut omated exposure control, adjustment of the mA and/or kV accordin g to the patient size, and/or use of an iterative reconstruction tech nique. COMPARISON: 12/20/2018 FINDINGS: Parenchyma: No evidence of acute infarc tion. No hemorrhage. No mass or mass effect. Extra-axial Collection:None Ventricular System:Normal Osseous Structures:No acute osseous abnormality. Included Orbits: Normal Paranasal Sinuses:Predominantly wander ar Tympanomastoid Cavities:Normal Other:None IMPRESSION: No acute intracranial abnormality. If there is persistent clinical concern for intracranial pathology, MR examination is recommended for [facility] er characterization. Signed: Philip Acuna MD Report Verified Date/Time: 0 18:19:46 Procedure Note Interface, External Ris In - 09/17/2019 6:21 PM CDT FINAL REPORT EXAM: CT, BRAIN, WITHOUT CONTRAST CLINICAL INDICATION: Headache. TECHNIQUE: CT images from skull base to vertex without IV contrast. This exam was performed according to the departmental dose optimization program which includes automated exposure control, adjustment of the mA and/or kV according to the patient size, and/or use of an iterative reconstruction technique. COMPARISON: 12/20/2018 FINDINGS: Parenchyma: No evidence of acute infarction. No hemorrhage. No mass or mass effect. Extra-axial Collection: None Ventricular System: Normal Osseous Structures: No acute osseous abnormality. Included Orbits: Normal Paranasal Sinuses: Predominantly clear Tympanomastoid Cavities: Normal Other: None IMPRESSION: No acute intracranial abnormality. If there is persistent clinical concern for intracranial pathology, MR examination is recommended for further characterization. Signed: Philip Acuna MD Report Verified Date/Time: 09/17/2019 18:19:46 Performing Organization Address City/State/Zipcode Ph one Number [facility] * Urinalysis w/Microscopic + Reflex to Culture (09/17/2019 11:39 AM CDT) Only the most recent of 3 results within the time period is included. Color, UA Yellow [facility] Clarity, UA Clear [facility] Specific [place], UA 1.014 1.001 - 1.035 [facility] pH, UA 6.0 5.0 - 8.0 [facility] Protein, UA Negative Negative [facility] Glucose, UA Negative Negative [facility] Ketones, UA Negative Negative [facility] Bilirubin, UA Negative Negative [facility] Blood, UA Small (A) Negative [facility] Nitrite, UA Negative Negative [facility] Leukocytes, UA Negative Negative [facility] Urobilinogen, UA 0.2 0.2 - 1.0 mg/dL [facility] RBC, UA 26 /HPF [facility] WBC, UA 3 /HPF [facility] Squam Epithel, UA <1 /HPF [facility] Specimen Source [facility] Specimen Urine Narrative Performed At Clinical Documentation Manager ID - tech [facility] Performing Organization Address City/State/Zipcode Ph one Number [facility] [address] [place], [place] [address] * CT abdomen/pelvis without iv contrast (09/15/2019 7:26 PM CDT) Specimen Narrative Performed At FINAL REPORT [facility] CT, ABDOMEN \\T\\ PELVIS, WITHOUT IV CONT RAST INDICATION: Flank pain, UTI, renal charles splant COMPARISON: None TECHNIQUE: Noncontrast abdomen and pelvis CT.C oronal and sagittal reformatted images obtained. DOSE REDUCTION: Dose modulation, iterat radha reconstruction, and/or weight-based adjustment of the mA/kV wa s utilized to reduce the radiation dose to as low as reasonably achievable. FINDINGS: Lower thorax: Visible airspaces clear. No pleural effusion. The heart is normal in size. No pericardial effus ion. Liver: Lack of intravenous contrast mat erial limits evaluation for suspicious hepatic lesions. Gallbladder and biliary tree: No ductal dilation or stones. Pancreas: No acute findings. Spleen: No acute findings Adrenal Glands: No acute findings. Kidneys and ureters: Bilateral [place] k idneys are atrophic. No contour deforming lesions or hydronephr osis. There is a right lower quadrant renal transplant. No hydroneph rosis or perinephric fluid collections around the transplant kidne y there is minimal perinephric inflammatory stranding. Right lower alfredo e nephrolithiasis. Evaluation of the parenchyma is limited given lack of intravenous contrast material. Bladder and reproductive organs: Uterus is age-appropriate. No suspicious adnexal masses. The bladder is unremarkable. Stomach and Duodenum: No significant fi ndings. Small and large intestine: Normal calib ers. Appendix: Normal. Major vascular structures: Normal aorti c caliber. Peritoneum and retroperitoneum: No free air, fluid or adenopathy. Skeleton: No acute bony abnormality. Additional findings: None. IMPRESSION: Surgical changes upper right lower quad rant renal transplant with minimal right perinephric stranding. No nobstructing punctate nephrolithiasis in the lower pole of th e renal transplant.No perinephric fluid collection or hydrone phrosis. Signed: Christophe Gupta MD Report Verified Date/Time: 0 22:24:05 Procedure Note Interface, External Ris In - 09/15/2019 10:26 PM CDT FINAL REPORT CT, ABDOMEN \\T\\ PELVIS, WITHOUT IV CONTRAST INDICATION: Flank pain, UTI, renal transplant COMPARISON: None TECHNIQUE: Noncontrast abdomen and pelvis CT. Coronal and sagittal reformatted images obtained. DOSE REDUCTION: Dose modulation, iterative reconstruction, and/or weight-based adjustment of the mA/kV was utilized to reduce the radiation dose to as low as reasonably achievable. FINDINGS: Lower thorax: Visible airspaces clear. No pleural effusion. The heart is normal in size. No pericardial effusion. Liver: Lack of intravenous contrast material limits evaluation for suspicious hepatic lesions. Gallbladder and biliary tree: No ductal dilation or stones. Pancreas: No acute findings. Spleen: No acute findings Adrenal Glands: No acute findings. Kidneys and ureters: Bilateral [place] kidneys are atrophic. No contour deforming lesions or hydronephrosis. There is a right lower quadrant renal transplant. No hydronephrosis or perinephric fluid collections around the transplant kidney there is minimal perinephric inflammatory stranding. Right lower pole nephrolithiasis. Evaluation of the parenchyma is limited given lack of intravenous contrast material. Bladder and reproductive organs: Uterus is age-appropriate. No suspicious adnexal masses. The bladder is unremarkable. Stomach and Duodenum: No significant findings. Small and large intestine: Normal calibers. Appendix: Normal. Major vascular structures: Normal aortic caliber. Peritoneum and retroperitoneum: No free air, fluid or adenopathy. Skeleton: No acute bony abnormality. Additional findings: None. IMPRESSION: Surgical changes upper right lower quadrant renal transplant with minimal right perinephric stranding. Nonobstructing punctate nephrolithiasis in the lower pole of the renal transplant. No perinephric fluid collection or hydronephrosis. Signed: Christophe Gupta MD Report Verified Date/Time: 09/15/2019 22:24:05 Performing Organization Address City/[facility] one Number [facility] * Uric acid (09/15/2019 5:46 AM CDT) Uric Acid 8.5 (H) 2.6 - 7.2 mg/dL [facility] Specimen Blood Narrative Performed At Clinical Documentation Manager ID - LM [facility] Performing Organization Address [facility] one Number [address] [facility] * Vancomycin level, random (09/15/2019 5:46 AM CDT) Vancomycin Rm 8.1 ug/mL [facility] Specimen Blood Narrative Performed At Reference Range: No Normals [facility] Clinical Documentation Manager ID - LM [facility] Performing Organization Address [facility] one Number [address] [facility] * Blood Culture - Routine (Right Venipuncture) (09/13/2019 6:13 AM CDT) Result No growth in 5 days [facility] Specimen Blood Performing Organization Address [facility] one Number [address] [facility] * Hepatic function panel (09/13/2019 6:13 AM CDT) Protein, Total 7.5 6.0 - 8.3 gm/dL [facility] Albumin 3.9 3.5 - 5.0 g/dL [facility] Total Bilirubin 0.8 0.2 - 1.2 mg/dL [facility] Bilirubin, Direct 0.4 0.1 - 0.5 mg/dL [facility] Alkaline Phosphatase 77 40 - 150 U/L [facility] AST 16 5 - 34 U/L [facility] ALT 17 6 - 55 U/L [facility] Specimen Blood Narrative Performed At Clinical Documentation Manager ID - PIAYA L [facility] Performing Organization Address City/State/Zipcode Ph one Number [address] [facility] * XR abdomen / KUB 1 view (09/12/2019 8:44 PM CDT) Specimen Narrative Performed At FINAL REPORT [facility] EXAM: KUB CLINICAL HISTORY: Nausea, vomiting, con stipation FINDINGS: There is nonobstructive bowel gas pattern with mild to moderate retained feces in the ascendin g and transverse colon. There is no evidence of pneumoperitoneum or p athological calcifications. The regional osseous structures are unr emarkable. Signed: Tina Shane MD Report Verified Date/Time: 0 20:48:58 Reading Location: [address] Transiti onal Reading Room Procedure Note Interface, External Ris In - 09/12/2019 8:51 PM CDT FINAL REPORT EXAM: KUB CLINICAL HISTORY: Nausea, vomiting, constipation FINDINGS: There is nonobstructive bowel gas pattern with mild to moderate retained feces in the ascending and transverse colon. There is no evidence of pneumoperitoneum or pathological calcifications. The regional osseous structures are unremarkable. Signed: Tina Shane MD Report Verified Date/Time: 09/12/2019 20:48:58 Reading Location: [address] Transitional Reading Room Performing Organization Address City/State/Zipcode Ph one Number [facility] * US transplant kidney (09/12/2019 7:05 PM CDT) Specimen Narrative Performed At FINAL REPORT [facility] EXAM: Transplanted renal ultrasound CLINICAL HISTORY: Pyelonephritis COMPARISON: October 29, 2018 FINDINGS: A transplanted kidney is note d in the right iliac fossa measuring 9.7 x 5.0 x 5.3 cm. It is wit hin normal limits in echogenicity and cortical thickness. Th ere is no evidence of hydronephrosis, mass, or shadowing ston e. No perinephric fluid collection noted. The peak systolic velocities of the zakia ac, anastomosis, and main renal vein are 66, 21, and 17 cm/s. The peak systolic velocities of the iliac, anastomosis, and main renal artery are 186, 82, and 95 cm/s. The resistive index is 0.6. The bladder appears unremarkable. IMPRESSION: 1. Unremarkable transplanted renal ultr asound. Signed: Tina Shane MD Report Verified Date/Time: 0 19:51:40 Reading Location: [address] Reading Room Procedure Note Interface, External Ris In - 09/12/2019 7:53 PM CDT FINAL REPORT EXAM: Transplanted renal ultrasound CLINICAL HISTORY: Pyelonephritis COMPARISON: October 29, 2018 FINDINGS: A transplanted kidney is noted in the right iliac fossa measuring 9.7 x 5.0 x 5.3 cm. It is within normal limits in echogenicity and cortical thickness. There is no evidence of hydronephrosis, mass, or shadowing stone. No perinephric fluid collection noted. The peak systolic velocities of the iliac, anastomosis, and main renal vein are 66, 21, and 17 cm/s. The peak systolic velocities of the iliac, anastomosis, and main renal artery are 186, 82, and 95 cm/s. The resistive index is 0.6. The bladder appears unremarkable. IMPRESSION: 1. Unremarkable transplanted renal ultra sound. Signed: Tina Shane MD Report Verified Date/Time: 09/12/2019 19:51:40 Reading Location: [facility] B1 C013T Transitional Reading Room Performing Organization Address City/State/Zipcode Ph one Number GE RIS * SARS-CoV2/RT-PCR (Asymptomatic ONLY) (09/12/2019 5:16 PM CDT) SARS-COV2/RT-PCR Not Detected Not Detected, Negative [facility] SARS-COV-2 PERFORMING LAB [facility] Specimen Other Narrative Performed At Negative results do not preclude SARS-C oV-2 infection and should not be used as [facility] the sole basis for patient management decisions. Nega tive results must be [facility] combined with clinical observations, pa tient history, and epidemiological information. A false negative result ma y occur if a specimen is improperly collected, transported or handled. The limit of detection for this assay i s 250 copies/mL. This SARS CoV-2 test is a rapid, real-t isabella RT-PCR test intended for the qualitative detection of nucleic acid f rom SARS-CoV-2 in a nasopharyngeal swab specimen collected from individuals álvaro pected of COVID-19 by their healthcare provider. This test has not been Food and Drug Ad ministration (FDA) cleared or approved and has been authorized by FDA under an Emergency Use Authorization (EUA). This EUA will be effective until the declara tion that circumstances exist justifying the authorization of the emergency use of in vitro diagnostic tests for detection and/or diagnosis of COVID-19 is terminated under Section 564(b)(2) of the Act or the EUA is revoked under Sec tion 564(g) of the Act. Fact Sheet for Healthcare Providers: https://www.[employer].Allthetopbananas.com/Documents/Xpert%20Xpress%20SARS%20CoV-2/Fact%20Sheets/30 2-3802%90GXYH-ARN-0%20HEALTHCARE%20PROV IDERS%20FACT%20SHEET.pdf Fact Sheet for Healthcare Patients: https://www.[employer]ys/Documents/Xpert%20Xpress%20SARS%20CoV-2/Fact%20Sheets/30 2-3801%79DZFI-NKB-2%20PATIENT%20FACT%20 SHEET.pdf Performing Laboratory: [address] [place] [address] Performing Organization Address [facility] Ph one Number [address] [facility] * Troponin I (09/12/2019 5:11 PM CDT) Only the most recent of 2 results within the time period is included. Troponin I <0.01 0.00 - 0.03 ng/mL [facility] Specimen Blood Narrative Performed At Troponin I (TnI) levels must be interpreted in the co ntext of the presenting [facility] symptoms and the clinical findings. Elevated TnI leve ls indicate myocardial [facility] damage, but are not specific for ischem ic heart disease. Elevated TnI levels are seen in patients with other cardiac con ditions (including myocarditis and congestive heart failure), and slight T nI elevations occur in patients with other conditions, including sepsis, ranulfo al failure, acidosis, acute neurological disease, and persistent tachyarrhythmia . Clinical Documentation Manager ID - BS Performing Organization Address [facility] one [place] [address] [facility] * Phosphorus (09/12/2019 5:11 PM CDT) Phosphorus 3.0 2.3 - 4.7 mg/dL [facility] Specimen Blood Narrative Performed At Clinical Documentation Manager ID - BS [facility] Performing Organization Address [facility] one Number [address] [facility] * Urine culture (09/12/2019 4:01 PM CDT) Only the most recent of 2 results within the time period is included. Result 40-49,000 col/mL Enterococcus [facility] faecalis (A) [facility] Specimen Urine Narrative Performed At 70-79,000 col/mL skin hansa [facility] Antibiotic Method Susceptibility Organism Ampicillin <=2: Susceptible Enterococcus faecalis Levofloxacin 2: Susceptible Enterococcus faecalis Linezolid 2: Susceptible Enterococcus faecalis Nitrofurantoin <=16: Susceptible Enterococcus faecalis Tetracycline >=16: Resistant Enterococcus faecalis Vancomycin 1: Susceptible Enterococcus faecalis Performing Organization Address [facility] Ph one Number [address] [facility] * EKG-SCANNED (12/22/2018 5:00 PM CDT) Narrative Performed At This result has an attachment that is n ot available. * PT/aPTT (12/20/2018 5:47 PM CDT) Protime 13.0 11.9 - 14.2 seconds [facility] INR 1.0 <=5.9 [facility] PTT 27.4 22.5 - 36.0 seconds [facility] Specimen Blood Narrative Performed At Effective 09/07/2018: PT Reference Range Change [facility] New: 11.9-14.2Previous: 11.7-14.7 [facility] MEDICAL CE NTER RECOMMENDED COUMADIN/WARFARIN INR THERA PY RANGES STANDARD DOSE: 2.0-3.0Includes: PRO PHYLAXIS for venous thrombosis, systemic embolization; TREATMENT for venous thro mbosis and/or pulmonary embolus. HIGH RISK: Target INR is 2.5-3.5 for pa tients wiht mechanical heart valves. Performing Organization Address [facility] one Number [address] [facility] * B-type Natriuretic Factor (BNP) (12/20/2018 5:47 PM CDT) BNP 46 0 - 100 pg/mL [facility] Specimen Blood Performing Organization Address [facility] Ph one Number [phone] [place] [address] * XR chest 1 view portable / bedside (12/20/2018 4:45 PM CDT) Specimen Narrative Performed At FINAL REPORT [facility] History: Shortness of breath. FINDINGS: Compared with May 04, 2016, the hea rt and mediastinum are stable. Lungs are clear, free of edema, focal c onsolidation or visible effusions. No pneumothorax. Bones are u nremarkable. IMPRESSION: 1. Negative for acute cardiopulmonary d isease. Signed: Kurtis Smith MD Report Verified Date/Time: 9 17:52:16 Reading Location: [address] Radiolo gy Reading Room Procedure Note Interface, External Ris In - 12/20/2018 5:54 PM CDT FINAL REPORT History: Shortness of breath. FINDINGS: Compared with May 04, 2016, the heart and mediastinum are stable. Lungs are clear, free of edema, focal consolidation or visible effusions. No pneumothorax. Bones are unremarkable. IMPRESSION: 1. Negative for acute cardiopulmonary di sease. Signed: Kurtis Smith MD Report Verified Date/Time: 12/20/2018 17:52:16 Reading Location: [address] Radiology Reading Room Performing Organization Address City/State/Zipcode Ph one Number GE RIS * ECG 12 lead (12/20/2018 3:59 PM CDT) Specimen Narrative Performed At Ventricular Rate 70 BPM GE MUSE Atrial Rate 70 BPM P-R Interval 130 ms QRS Duration 92 ms Q-T Interval 400 ms QTC Calculation(Bazett) 432 ms P [place] 60 degrees R [place] -13 degrees T [place] 31 degrees Normal sinus rhythm Normal ECG When compared with ECG of 20-DEC-2018 1 5:58, No significant change was found Confirmed by Margarita NICHOLE, MINERVA (1 [phone]) on 12/21/2018 7:39:22 AM Procedure Note Interface, External Ris In - 12/21/2018 7:39 AM CDT Ventricular Rate 70 BPM Atrial Rate 70 BPM P-R Interval 130 ms QRS Duration 92 ms Q-T Interval 400 ms QTC Calculation(Bazett) 432 ms P [place] 60 degrees R [place] -13 degrees T [place] 31 degrees Normal sinus rhythm Normal ECG When compared with ECG of 20-DEC-2018 15:58, No significant change was found Confirmed by Margarita NICHOLE MICHAEL ([id number]) on 12/21/2018 7:39:22 AM Performing Organization Address City/State/Zipcode Ph one Number GE MUSE after 11/11/2018 Insurance Payer Benefit Subscriber ID Type Phone Address Plan / Group BLUE CROSS/BLUE SHIELD BCBS FED xxxxxxxxx O [address] [place] [address] CDC REVIEW CDC REVIEW [place] [address] [place] [address] Guarantor Name Account Relation to Date of Phone Billin g Address Type Patient Lizet Magana Personal/F Self 1970 [id number] [facility] [address] (Home) [place] [address] Advance Directives For more information, please contact: [address] [address] Date Inactivated Comments Code Status Date Activated 10/30/2018 4:28 PM Full Code 10/28/2018 11:39 PM This code status was determined by: Patient 10/28/2018 5:35 PM Full Code 03/10/2018 2:08 AM This code status was determined by: Patient 03/10/2018 2:07 AM Full Code 03/09/2018 11:43 PM This code status was determined by: Patient 05/07/2016 2:51 PM Full Code 05/04/2016 9:19 PM This code status was determined by: Patient 09/20/2014 3:48 PM Full Code 09/17/2014 10:35 PM This code status was determined by: Patient
[2019-11-12] MEDS ORDERED: PREDNISONE 20 MG TAB PO ONE (14:00)
--- NOTE | 2019-11-12 14:00 | Emergency Department Note ---
History of Present Illnes History of Present Illness Chief Complaint: Extremity Trauma/Pain History of Present Illness This is a 49 year old female that is here for left first toe pain. Patient was seen previously around October 29 for the same, at that point she had pain over her left ankle but went to the first toe. Patient was treated with prednisone with resolution of the symptoms however they returned last night. Patient does have a renal transplant. Patient denies any trauma, any fevers, no other joints affected at this time. Other complaints at this time. Arrival Mode: Car Onset (how long ago): day(s) (1) Quality: ache Radiation: Reports non-radiation Severity: severe Onset quality: gradual Duration (how long): day(s) (1) Timing of current episode: constant Progression: worsening Chronicity: recurrent Context: Denies recent surgery, Denies recent immobilization, Denies recent travel, Denies trauma/injury Relieving factors: none Exacerbating factors: none Associated symptoms: Denies denies other symptoms, Denies confusion, Denies chest pain, Denies cough, Denies fever/chills Treatments prior to arrival: none Past Medical/Family History Physician Review I have reviewed the patient's past medical and family history. Any updates have been documented here. Past Medical History Past Medical History: Hypertension, Chronic Kidney Disease Past Surgical History: Tubal Ligation Other Surgery: POST KIDNEY TRANSPLANT [id number] AGO Review of Systems Review of Systems Constitutional: Reports no symptoms EENTM: Reports no symptoms Cardiovascular: Reports no symptoms Respiratory: Reports no symptoms Gastrointestinal: Reports no symptoms Genitourinary: Reports no symptoms Musculoskeletal: Reports no symptoms Integumentary: Reports no symptoms Neurological: Reports no symptoms Psychological: Reports no symptoms Endocrine: Reports no symptoms Hematological/Lymphatic: Reports no symptoms Physical Exam Related Data Allergies: Coded Allergies: promethazine (Verified Allergy, Unknown, 10/31/19) Physical Exam CONSTITUTIONAL Constitutional: Present well-developed, Present well-nourished HENT HENT: Present normocephalic, Present atraumatic, Present oropharynx clear/moist, Present nose normal HENT L/R: Present left ext ear normal, Present right ext ear normal EYES Eyes: Reports PERRL, Reports conjunctivae normal NECK Neck: Present ROM normal PULMONARY Pulmonary: Present effort normal, Present breath sounds normal CARDIOVASCULAR Cardiovascular: Present regular rhythm, Present heart sounds normal, Present capillary refill normal, Present normal rate GASTROINTESTINAL Abdominal: Present soft, Present nontender, Present bowel sounds normal GENITOURINARY Genitourinary: Present exam deferred SKIN Skin: Present warm, Present dry MUSCULOSKELETAL Musculoskeletal: Present ROM normal, Present edema, Present tenderness, Present swelling, Present other (patient with first toe MTP with diffuse edema, slight erythema, full range of motion neurovascularly intact distally. No streaking no pain anywhere else on the foot or ankle) NEUROLOGICAL Neurological: Present alert, Present oriented x 3, Present no gross motor or sensory deficits PSYCHOLOGICAL Psychological: Present mood/affect normal, Present judgement normal Assessment & Plan Medical Decision Making MDM Patient is a 49-year-old female that has a history of high uric acid here with first toe pain. Patient was treated for gout last unsuccessfully, resolved and now returned. Patient states it feels the same as last gouty attack. Patient will do 1 dose of prednisone and follow up tomorrow given that she was recently on prednisone. Patient was given [place] for pain and a prescription for morphine. 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 Assessment & Plan Final Impression: (1) Pain in toe of left foot (2) Gout Depart Disposition: HOME, SELF-group home Meds Active Scripts Clindamycin Hcl (CLINDAMYCIN HCL) 150 Mg Capsule, 300 MG PO TID for infection, #30 TAB 0 Refills 2 TABS PO TID Prov:SILAS ENGEL MD 10/31/19 Ondansetron (ONDANSETRON ODT) 8 Mg Tab.rapdis, 4 MG PO Q6H PRN for nausea and vomiting, #20 TAB 0 Refills Prov:SILAS ENGEL MD 10/31/19 Prednisone (PREDNISONE) 20 Mg Tab, 1 TAB PO DAILY for inflammation, #7 TAB 0 Refills Prov:SILAS ENGEL MD 10/31/19 Medications in the ED Acetaminophen/ Hydrocodone Bitart 2 ea ONCE PRN PO MODERATE PAIN (4-6) Last administered on 11/12/19at 13:40; Admin Dose 2 EA; Start 11/12/19 at 13:45; Stop 11/19/19 at 13:44 Prednisone 40 mg STK-MED ONCE .ROUTE ; Start 11/12/19 at 13:47; Stop 11/12/19 at 13:42; Status DC ROYER SCHWAB MD Nov 12, 2019 14:00
--- OUTSIDE RECORDS SUMMARY | 2019-11-12 14:00 | XMS REPORT | Continuity of Care Document ---
Author Author [facility] t Organization [facility] Address [address] [place] [address] Phone Unavailable Care Team Providers Care Life Science Research Assistant Name Role Phone Margarita GOODWIN PCP Nahum ENGEL Attphys Unavailable ESTELA DURAN TITILOLA Attphys Unavailable Renee PETERS, Estela Titilzaira Attphys [phone] Dionisio Dorman MD Attphys Paula Bonner Attphys Unavailable THIAGO MATTHEW Attphys Unavailable Leatha PETERS, Thiago Richardson Attphys ELEAZAR MARTINEZ Attphys Unavailable QUINCY MAJOR Attphys Unavailable Neto Heck Attphys ALL LOBO Attphys Unavailable RINA BROOKS Attphys Unavailable ABE DIXON Attphys Unavailable ABE HOUSTON Attphys Unavailable Nya SPENCER Attphys Unavailable Asael Kebede Attphys DIONISIO DORMAN Admphys Unavailable MADIE PADILLA Admphys Unavailable Payers Payer Name Policy Type Policy Number Effective Date Expiration Date [place] [facility] [employer] [id number] 2005 00:00:0 0 [facility] BLUE CROSS/BLUE SHIELDBCBS FEDxxxxxxxxxP [id number] [id number], [place] [address] xxxxxxxxx [facility] CDC REVIEWCDC REVIEWxxxxxxxxPO [place] [address] x xxxxxxx [facility] Problems Condition Name Condition Details Condition Category Status Onset Date Resolution Date Last Treatment Date Treating Clinician Comments Source UTI (urinary tract infection) due to Enterococcus UTI (urinary tract infection) due to Enterococcus Disease Active 2019-09-19 00:00:00 [facility] Lower abdominal pain Lower abdominal pain Disease Active 00:00:00 [facility] Acute urinary tract infection Acute urinary tract infection Disease Active 2018-10-28 00:00:00 [facility] WILIAN (acute kidney injury) WILIAN (acute kidney injury) Disease Ac tive 2018-03-09 00:00:00 [facility] Acute cystitis without hematuria Acute cystitis without hematuri a Disease Active 2018-03-09 00:00:00 [facility] Renal transplant recipient Renal transplant recipient Disease Active 2018-03-09 00:00:00 [facility] VOMITING VOMI TING Active 03/17/2017 [facility] Diagnosis Active 2017-03-17 00:00:00 2017-08-24 10:09:00 [facility] HCAP (healthcare-associated pneumonia) HCAP (healthcare-asso ciated pneumonia) Disease Active 2016-05-04 00:00:00 [facility] H/O kidney transplant H/O kidney transplant Disease Active 201 09-21-27 00:00:00 [facility] Stage 3 chronic kidney disease Stage 3 chronic kidney disease Disea se Active 2015-11-02 00:00:00 [facility] Essential hypertension with goal blood pressure less t mustafa 130/80 Essential hypertension with goal blood pressure less than 130/80 Disease Activ e 2015-11-02 00:00:00 [facility] WEAKNESS WEAK NESS Active 05/06/2015 [facility] Active 2015-05-06 00:00:00 2015-05-06 19:41:00 [facility] DIZZY/FATIGUE DIZZ Y/FATIGUE Active 12/17/2013 [facility] Active 2013-12-17 12:00:00 2013-12-18 01:41:00 [facility] Acute gout Problem Active [facility] Left foot pain Problem Active [facility] Acute renal failure syndrome (disorder) Acute renal failure syndrome (disorder) Resolved Problem 03/21/2017 [facility] Problem Resolved 2017-03-21 04:31:01 Memor niurka Yang Malignant neoplastic disease (disorder) Malignant neoplastic disease (disorder) Active Problem 03/21/2017 [facility] Problem Active 2017-03-21 04:31:01 Caryn Yang Acute upper respiratory infection, unspecified Acute upper respiratory infection, unspecified 03/18/2017 03/21/2017 [facility] Problem 2017-03-18 06:00:00 2017-03-21 04:31:01 2017-03-21 04:31:01 [facility] Discharge Diagnosis: Acute upper respiratory infection Discharge Diagnosis: Acute upper respiratory infection 05/07/2015 05/10/2015 [facility] Problem 2015-05-07 06:00:00 2015-05-10 05:44:00 2015-04 05:44:00 [facility] Discharge Diagnosis: UTI (urinary tract infection) Discharge Diagnosis: UTI (urinary tract infection) 05/07/2015 05/10/2015 [facility] Problem 2015-05-07 06:00:00 2015-05-10 05:44:00 2015-04 05:44:00 [facility] Discharge Diagnosis: Chronic renal insufficiency Discharge Diagnosis: Chronic renal insufficiency 12/18/2013 12/20/2013 [facility] Problem 2013-12-18 05:00:00 2013-12-20 23:56:19 2013-12 23:56:19 [facility] Discharge Diagnosis: Generalized weakness Discharge Diagnosis: Generalized weakness 12/18/2013 12/20/2013 [facility] Problem 2013-12-18 05:00:00 2013-12-20 23:56:19 2013-12-20 23:56:19 [facility] Allergies, Adverse Reactions, Alerts Allergy Name Allergy Type Status Severity Reaction(s) Onset Date Inacti ve Date Treating Clinician Comments Source Promethazine Propensity to adverse reactions Active 201 06-19-30 00:00:00 hallucinations [facility] promethazine HCl DA Active SV 2011-10-16 00:00:00 [facility] Phenergan Phenergan Active Hilario Yang Family History Family Member Diagnosis Comments Start Date Stop Date Source Natural daughter Depression [facility] Natural mother Cancer [facility] Natural mother Kidney disease [facility] Social History Social Habit Start Date Stop Date Quantity Comments Source Sex Assigned At [facility] Smoking Status Start Date Stop Date Source Never smoker [facility] Medications Ordered Medication Name Filled Medication Name Start Date Stop Da te Current Medication? Ordering Clinician Indication Dosage Frequency Signature (SIG) Comments Components Source Clindamycin Hcl Clindamycin Hcl 2019-10-31 22:37:00 Yes 300 Three Times A Day for Infection [facility] Ondansetron (Ondansetron Odt) 8 Mg TAB.RAPDIS Ondanset dionisio (Ondansetron Odt) 8 Mg TAB.RAPDIS 2019-10-31 22:35:00 Yes 4 E very 6 Hours as needed for Nausea And Vomiting [facility] Prednisone Prednisone 2019-10-31 22:34:00 Yes 1 Daily for Inflammation [facility] cycloSPORINE modified (NEORAL) 25 MG capsule 00:00:00 2020-09-19 23:59:00 Yes 75mg Take 3 capsules (75 mg total) b y mouth Daily (0600). [facility] amLODIPine (NORVASC) 5 MG tablet 2019-09-20 00:00:00 09-19 23:59:00 Yes 5mg QD Take 1 tablet (5 mg total) by mouth christo y. [facility] cycloSPORINE modified (NEORAL) 100 MG capsule 20 29-09-08 14:31:06 2019-09-19 00:00:00 No 100mg Q.5D Take 100 mg by mouth 2 (two) ti mes daily. [facility] doxycycline (VIBRAMYCIN) 100 MG capsule 14:31:06 2019-09-19 00:00:00 No 100mg Q.5D Take 100 mg by mouth 2 (two) ti mes daily. [facility] cycloSPORINE modified (NEORAL) 100 MG capsule 20 29-09-08 00:00:00 2020-09-18 23:59:00 Yes 100mg Take 1 capsule (100 mg total) b y mouth Daily (1800). [facility] mycophenolate (MYFORTIC) 180 MG EC tablet 09-18 00:00:00 2020-09-18 23:59:00 Yes 180mg Q.5D Take 1 tablet (180 mg total) by mouth 2 (two) times daily. [facility] magnesium oxide (MAG-OX) 400 mg (241.3 mg magnesium) tablet 2019-09-19 00:00:00 2020-09-18 23:59:00 Yes 400mg Q.5D Take 1 tablet (400 mg total) by mouth 2 (two) times daily. [facility] amoxicillin (AMOXIL) 500 MG capsule 2019-09-19 00:00:0 0 2019-09-24 23:59:00 No 500mg Q.5D Take 1 capsule (500 mg total) by mouth 2 (two) times daily for [address] [facility] cefpodoxime (VANTIN) 100 MG tablet 2018-12-20 00:00:00 201 12-19-16 23:59:00 No 100mg Q.5D Take 1 tablet (1 00 mg total) by mouth 2 (two) times daily for [address] [facility] Sodium Chloride 0.9% (Bolus) IV 2017-03-18 05:51:00 No 1,000 mL, 1,000 ml/hr, Infuse Over: 1 hr, Route: IV, ONCE, Priority: STAT, Dosing Weight 100 kg, Start date: 03/17/17 23:51:00 LINEMARKER, Stop date: 03/17/17 23:51:00 [facility]EMARKER [facility] 2017-03-18 05:51:00 No 4 mg, Route: IVP, Drug form: INJ, ONCE, Dosing Weight 100, kg, Priority: STAT, Start date: 03/17/17 23:51:00 LINEMARKER, Stop date: 03/17/17 23:51:00 LINEMARKER Feliciano littlejohn Trey Acetaminophen 2017-03-18 05:30:00 No Notes: Do not exceed 4 gm/day. (Same as: Tylenol) Clarence Yang ondansetron (ZOFRAN) 4 MG tablet 2016-05-07 00:00:00 Yes 4mg Take 1 tablet (4 mg total) by mouth every 8 (eight) hours as needed for Nausea. [facility] multivitamin per tablet 2015-11-01 11:53:40 Yes 1{tbl} QD Take 1 tablet by mouth daily. [facility] 120 ACTUAT mometasone furoate 0.05 MG/ACTUAT Nasal Inhaler [ Nasonex] 2015-05-07 06:08:00 Yes 2 spray, NASAL, Daily, In each nostril, # 17 gm, 1 Refill(s) Clarence Yang Acetaminophen 300 MG / butalbital 50 MG / Caffeine 40 MG Oral Capsule [Fioricet] 2015-05-07 06:07:00 No 1 cap, PO, Q4H, PRN PRN Headache, Do not exceed 6 capsules in 24 hours, X 2 day, # 10 caplet, 0 Refill(s) Clarence Yang Ciprofloxacin 250 MG Oral Tablet [Cipro] 2015-05-07 06:07:00 Yes 250 mg = 1 tab, PO, Q12H, X 10 day, # 20 tab, 0 Refill(s) Clarence Yang Cipro 2015-05-07 06:07:00 No Notes: May interfere w/enteral feedings - Take 1 hr before or 2 hrs after antacids, dairy pdt & minerals. On empty stomach. Clarence Yang Saline Flush 0.9% 2013-12-18 05:38:00 No Notes: (Same as: BD Posiflush) Clarence Yang metoprolol (TOPROL-XL) 50 MG 24 hr tablet 2013-02-09 11:37:35 Yes 50mg QD Take 50 mg by mouth daily. [facility] MYFORTIC 180 mg EC tablet 2012-08-18 00:00:00 2019-09-19 00:00:00 No TAKE 3 TABLET BY MOUTH TWICE A DAY [facility] predniSONE (DELTASONE) 5 MG tablet 2012-07-09 00:00:00 Yes TAKE 1 TABLET BY MOUTH EVERY DAY [facility] Immunizations Ordered Immunization Name Filled Immunization Name Date Status Comments Source Pneumococcal Conjugate (Prevnar) 13-Valent 2019-09-16 00:0 0:00 Completed [facility] Vital Signs Vital Name Observation Time Observation Value Comments Source Body Temperature 2019-10-31 23:42:00 98.2 [degF] [facility] Weight 2019-10-31 19:55:00 220 [lb_av] [facility] BMI (Body Mass Index) 2019-10-31 19:55:00 34.5 kg/m2 [facility] Systolic blood pressure 2019-09-19 11:25:00 127 mm[Hg] [facility] Diastolic blood pressure 2019-09-19 11:25:00 82 mm[Hg] [facility] Heart rate 2019-09-19 11:25:00 71 /min [facility] Body temperature 2019-09-19 11:25:00 36.5 Flaquita [facility] Respiratory rate 2019-09-19 11:25:00 18 /min [facility] Oxygen saturation in Arterial blood by Pulse oximetry 09-18 11:25:00 100 [facility] Measured 2019-09-19 06:00:00 99.6 kg [facility] BMI 2019-09-19 06:00:00 34.39 kg/m2 [facility] Body height 2019-09-12 14:13:18 170.2 cm [facility] Systolic (mm Hg) 2017-03-18 08:45:00 Hilario Yang Diastolic (mm Hg) 2017-03-18 08:45:00 Giselle Yang Respitory Rate 2017-03-18 08:45:00 Vineet Gonzalez Temperature Oral (F) 2017-03-18 08:45:00 99.2 F Clarence Yang Heart Rate 2017-03-18 08:45:00 Clarence Yang Weight 2017-03-18 05:12:00 [facility] BMI Calculated 2017-03-18 05:12:00 [facility] Height 2017-03-18 05:12:00 170.18 cm [facility] Respitory Rate 2017-03-18 05:12:00 [facility] Heart Rate 2017-03-18 05:12:00 [facility] Systolic (mm Hg) 2017-03-18 05:12:00 Hilario [facility] Diastolic (mm Hg) 2017-03-18 05:12:00 Mem o[facility] Temperature Oral (F) 2017-03-18 05:12:00 100.4 F [facility] Systolic (mm Hg) 2015-05-07 06:26:00 Hilario rial [facility]rey Respitory Rate 2015-05-07 06:26:00 [facility] Diastolic (mm Hg) 2015-05-07 06:26:00 Mem [facility] Temperature Oral (F) 2015-05-07 06:26:00 97.5 F [facility] Heart Rate 2015-05-07 06:26:00 [facility] Weight 2015-05-07 00:25:00 [facility] BMI Calculated 2015-05-07 00:25:00 [facility] Height 2015-05-07 00:25:00 170.18 cm [facility] Systolic (mm Hg) 2015-05-07 00:25:00 Hilario rial [facility] Diastolic (mm Hg) 2015-05-07 00:25:00 [facility] Heart Rate 2015-05-07 00:25:00 [facility] Respitory Rate 2015-05-07 00:25:00 [facility] Temperature Oral (F) 2015-05-07 00:25:00 98.3 F [facility] Systolic (mm Hg) 2013-12-18 08:03:00 Hilario rial Trey Diastolic (mm Hg) 2013-12-18 08:03:00 Mem [facility] Respitory Rate 2013-12-18 08:03:00 [facility] Diastolic (mm Hg) 2013-12-18 06:30:00 Mem [facility] Systolic (mm Hg) 2013-12-18 06:30:00 Hilario rial [facility] Respitory Rate 2013-12-18 06:30:00 [facility] Systolic (mm Hg) 2013-12-18 05:42:00 Hilario Yang Respitory Rate 2013-12-18 05:42:00 Vineet Gonzalez Diastolic (mm Hg) 2013-12-18 05:42:00 Giselle Yang BMI Calculated 2013-12-18 05:17:00 Vineet Gonzalez Weight 2013-12-18 05:17:00 Clarence Yang Height 2013-12-18 05:17:00 170.18 cm [facility] Temperature Oral (F) 2013-12-18 05:17:00 98.8 F [facility] Heart Rate 2013-12-18 05:17:00 [facility] Procedures Procedure Date / Time Performed Performing Clinician Sourc e CYCLOSPORINE LEVEL 2019-09-19 05:25:00 Cachorro Alaniz [facility] BASIC METABOLIC PANEL (7) 2019-09-19 05:24:[address] [facility] MAGNESIUM 2019-09-19 05:24:00 Danial [facility] CBC W/PLT COUNT & AUTO DIFFERENTIAL 2019-09-19 05:24:00 Danial [facility] BASIC METABOLIC PANEL (7) 2019-09-18 11:25:00 Cachorro Alaniz [facility] BASIC METABOLIC PANEL (7) 2019-09-18 05:17:00 Danial [facility] MAGNESIUM 2019-09-18 05:17:00 Danial [facility] CBC W/PLT COUNT & AUTO DIFFERENTIAL 2019-09-18 05:17:00 Danial [facility] CT BRAIN WITHOUT IV CONTRAST 2019-09-17 15:16:00 Sarika Cardona cia [facility] URINALYSIS W/ REFLEX URINE CULTURE 2019-09-17 11:39:00 Zoya Mckeon [facility] BASIC METABOLIC PANEL (7) 2019-09-17 05:38:00 Danial [facility] MAGNESIUM 2019-09-17 05:38:00 [facility] W/[facility]T COUNT & AUTO DIFFERENTIAL 2019-09-17 05:38:00 Giveon, Dionisio [facility] BASIC METABOLIC PANEL (7) 2019-09-16 05:52:[address] [facility] MAGNESIUM 2019-09-16 05:52:00 Dionisio Dorman [facility] CYCLOSPORINE LEVEL 2019-09-16 05:52:00 Courtney Alexandra [facility] CBC W/PLT COUNT & AUTO DIFFERENTIAL 2019-09-16 05:52:00 [facility] CT ABDOMEN/PELVIS WITHOUT IV CONTRAST 2019-09-15 19:26:00 Bryanna Crain [facility] BASIC METABOLIC PANEL (7) 2019-09-15 05:46:[address] [facility] MAGNESIUM 2019-09-15 05:46:00 [facility] CYCLOSPORINE LEVEL 2019-09-15 05:46:00 Courtney Alexandra [facility] VANCOMYCIN LEVEL, RANDOM 2019-09-15 05:46:[address] [facility] URIC ACID 2019-09-15 05:46:00 Solomon [facility] CBC W/PLT COUNT & AUTO DIFFERENTIAL 2019-09-15 05:46:00 Danial [facility] BASIC METABOLIC PANEL (7) 2019-09-14 05:48:[address] [facility] MAGNESIUM 2019-09-14 05:48:00 [facility] CYCLOSPORINE LEVEL 2019-09-14 05:48:00 Courtney Alexandra [facility] CBC W/PLT COUNT & AUTO DIFFERENTIAL 2019-09-14 05:48:00 Danial [facility] BLOOD CULTURE 2019-09-13 06:13:00 [facility] HEPATIC FUNCTION PANEL 2019-09-13 06:13:00 Ricci Duran pe [facility] BASIC METABOLIC PANEL (7) 2019-09-13 06:13:[address] [facility] MAGNESIUM 2019-09-13 06:13:00 [facility] CBC W/PLT COUNT & AUTO DIFFERENTIAL 2019-09-13 06:13:00 [facility]ial [facility] XR ABDOMEN / KUB 1 VIEW 2019-09-12 20:44:00 [facility] US TRANSPLANT KIDNEY 2019-09-12 19:05:00 Danial [facility] SARS-COV2/RT-PCR ([facility]) 2019-09-12 17:16:00 AlaErick valente ilzaira [facility] MAGNESIUM 2019-09-12 17:11:00 Alao [facility] TROPONIN I 2019-09-12 17:11:00 [facility] PHOSPHORUS 2019-09-12 17:11:00 Renee [facility] URINE CULTURE 2019-09-12 16:01:00 Aldo Garcia [facility] URINALYSIS W/ REFLEX URINE CULTURE 2019-09-12 16:01:00 Liat Garcia [facility] BASIC METABOLIC PANEL (7) 2019-09-12 15:42:00 Aldo Garcia aeeron [facility] CBC W/PLT COUNT & AUTO DIFFERENTIAL 2019-09-12 15:42:00 Arianna Garcia [facility] REPORT OF PROCEDURE - ENDOSCOPY SCAN 2018-12-22 17:00:53 Pro vider, Default Scanning [facility] BASIC METABOLIC PANEL (7) 2018-12-20 17:47:00 Amy Salmeron [facility] MAGNESIUM 2018-12-20 17:47:00 Amy Salmeron [facility] B-TYPE NATRIURETIC FACTOR (BNP) 2018-12-20 17:47:00 Matthew Salmeron [facility] TROPONIN I 2018-12-20 17:47:00 Amy Salmeron [facility] PT/APTT 2018-12-20 17:47:00 Faviola, Amy [facility] CBC W/PLT COUNT & AUTO DIFFERENTIAL 2018-12-20 17:47:00 Amy Salmeron [facility] XR CHEST 1 VIEW PORTABLE/BEDSIDE 2018-12-20 16:45:00 Tuan Salmeron [facility] CT BRAIN WITHOUT IV CONTRAST 2018-12-20 16:43:00 Amy Salmeron [facility] URINE CULTURE 2018-12-20 16:20:00 Amy Salmeron [facility] URINALYSIS W/ REFLEX URINE CULTURE 2018-12-20 16:20:00 Eron Salmeron [facility] ECG 12-LEAD 2018-12-20 15:59:00 Amy Salmeron [facility] Kidney transplant [facility] Plan of Care Planned Activity Planned Date Details Comments Source Future Scheduled Test 2019-12-12 00:00:00 INFLUENZA VACCINE (#1) [code = INFLUENZA VACCINE (#1)] [facility] 00:00:00 Screening for deborah gnant neoplasm of cervix (procedure) [code = 216965393] [facility] edical Center Instructions Cellulitis [facility] Instructions Gout [facility] Encounters Start Date/Time End Date/Time Encounter Type Admission Type Attendi RUST Care Department Encounter ID Source 2019-10-31 20:20:00 2019-10-31 23:03:00 Departed Emergency Room 1 SILAS ENGEL [facility] [id number] [facility] 2017-03-17 23:08:00 2017-03-18 03:11:00 Outpatient Summer HeckSE [id number] 2015-05-06 17:57:00 2015-05-07 00:28:00 Outpatient Summer HeckSE [id number] 2013-12-18 00:15:00 2013-12-18 03:04:00 Outpatient Ziggy Kebede [id number] Results Test Description Test Time Test Comments Results Result Comments Source FOOT 3 VIEW LT - HOPD 2019-10-31 21:54:00 [place] [address] Patient Name: KOKO ESPINOZA MR #: [id number] : 1970 Age/Sex: 49/F Req #: [id number] Adm Physician: Ordered by: SILAS ENGEL MD Report #: [id number] Location: [facility] Room/Bed: Procedure: [id number] HOPD/FOOT 3 VIEW LT - HOPD Exam Date: 10/31/19 Exam Time: 2104 REPORT STATUS: Signed Exam: Left foot radiographs-3 views Clinical History: Pain and swelling. Comparison: None. Findings/Impression: No evidence of acute fracture or malalignment. Soft tissue edema in the foot. Small plantar calcaneal spur. Signed by: Dr. Kuldip Caldera MD on 10/31/2019 9:56 PM Dictated By: KULDIP CALDERA MD 55 Transcribed By: NIKHIL on 10/31/192155 COPY TO: SILAS ENGEL MD Serum or plasma uric acid measurement (mass/volume) 20:16:00 Test Item Uric Acid (test code = 3084-1) 9.4 2.6-8.0 [facility] [id number] 15:58:00* Test Item Value Reference Range Interpretation Comments Cyclosporine Lvl (test code = 3520-4) 118 ng/mL <400 CESAR (test code = CESAR) Senior Research Fellow ID - KRYSTIAN Juares Lab Interpretation (test code = 46869-7) Normal [facility] [id number] 15:58:00* Test Item Value Reference Range Interpretation Comments CYCLOSPORINE BLOOD (BEAKER) (test code = 672) 118 ng/mL <400 Senior Research Fellow ANUJ BOLAND MBasic Metabolic [id number] 06:59:00* Test Item Value Reference Range Interpretation Comments Sodium (test code = 2951-2) 136 meq/L 136-145 Potassium (test code = 2823-3) 4.2 meq/L 3.5-5.1 Chloride (test code = 2075-0) 106 meq/L 98-107 CO2 (test code = 8-9) 22 meq/L 22-29 BUN (test code = 3094-0) 36 mg/dL 7-21 H Creatinine (test code = 2160-0) 2.35 mg/dL 0.57-1.25 H Glucose (test code = 2345-7) 91 mg/dL 70-105 Calcium (test code = 42559-0) 9.2 mg/dL 8.4-10.2 EGFR (test code = 82325-9) 27 mL/min/1.73 sq m ESTIMATED GFR IS NOT ACCURATE CREATININE CLEARANCE IN PREDICTING GLOMERULAR FILTRATION RATE. ESTIMATED GFR IS NOT APPLICABLE FOR DIALYSIS PATIENTS. CESAR (test code = CESAR) Senior Research Fellow ID Zia Juares Lab Interpretation (test code = 91976-6) Abnormal [facility] [id number] 06:59:00* Test Item Value Reference Range Interpretation Comments SODIUM (BEAKER) (test code = 381) 136 meq/L 136-145 POTASSIUM (BEAKER) (test code = 379) 4.2 meq/L 3.5-5.1 CHLORIDE (BEAKER) (test code = 382) 106 meq/L 98-107 CO2 (BEAKER) (test code = 355) 22 meq/L 22-29 BLOOD UREA NITROGEN (BEAKER) (test code = 354) 36 mg/dL 7-21 H CREATININE (BEAKER) (test code = 358) 2.35 mg/dL 0.57-1.25 H GLUCOSE RANDOM (BEAKER) (test code = 652) 91 mg/dL 70-105 CALCIUM (BEAKER) (test code = 697) 9.2 mg/dL 8.4-10.2 EGFR (BEAKER) (test code = 1092) 27 mL/min/1.73 sq m ESTIMATED GFR IS NOT ACCURATE CREATININE CLEARANCE IN PREDICTING GLOMERULAR FILTRATION RATE. ESTIMATED GFR IS NOT APPLICABLE FOR DIALYSIS PATIENTS. Senior Research Fellow ID - WILFRED [id number] 06:33:00* Test Item Value Reference Range Interpretation Comments Magnesium (test code = 16418-8) 1.8 mg/dL 1.6-2.6 CESAR (test code = CESAR) Senior Research Fellow ID - WILFRED M Lab Interpretation (test code = 72560-8) [facility] 06:33:00* Test Item Value Reference Range Interpretation Comments MAGNESIUM (BEAKER) (test code = 627) 1.8 mg/dL 1.6-2.6 Senior Research Fellow ID - WILFRED MCBC with platelet count + automated [id number] 05:36:00 * Test Item Value Reference Range Interpretation Comments WBC (test code = 6690-2) 10.2 3.5- 10.5 K/L RBC (test code = 789-8) 3.52 3.93- 5.22 M/L L MCHC (test code = 786-4) 30.7 32.2- 35.5 GM/DL L Hematocrit (test code = 4544-3) 31.9 % 34.1-44.9 L MCV (test code = 787-2) 90.6 fL 79.4-94.8 MCH (test code = 785-6) 27.8 pg 25.6-32.2 RDW (test code = 788-0) 13.2 % 11.7-14.4 Platelets (test code = 777-3) 212 150- 450 K/CU MM MPV (test code = 91249-4) 9.4 fL 9.4-12.3 nRBC (test code = 413) 0 0- 0 /100 WBC % Neutros (test code = 429) 72 % % Lymphs (test code = 430) 17 % % Monos (test code = 431) 10 % % Eos (test code = 432) 1 % % Baso (test code = 437) 0 % # Neutros (test code = 670) 7.33 1.56- 6.13 K/L H # Lymphs (test code = 414) 1.68 1.18- 3.74 K/L # Monos (test code = 415) 1.05 0.24- 0.36 K/L H # Eos (test code = 416) 0.08 0.04- 0.36 K/L # Baso (test code = 417) 0.02 0.01- 0.08 K/L Immature Granulocytes-Relative (test code = 2801) 0 % 0-1 Lab Interpretation (test code = 25322-8) Abnormal [facility] W/PLT COUNT & AUTO [id number] 05:36:00* Test Item Value Reference Range Interpretation Comments WHITE BLOOD CELL COUNT (BEAKER) (test code = 775) 10.2 K/ L 3.5- 10.5 RED BLOOD CELL COUNT (BEAKER) (test code = 761) 3.52 M/ L 3.93-5 .22 L HEMOGLOBIN (BEAKER) (test code = 410) 9.8 GM/DL 11.2-15.7 L HEMATOCRIT (BEAKER) (test code = 411) 31.9 % 34.1-44.9 L MEAN CORPUSCULAR VOLUME (BEAKER) (test code = 753) 90.6 fL 79. 4-94.8 MEAN CORPUSCULAR HEMOGLOBIN (BEAKER) (test code = 751) 27.8 pg 25.6-32.2 MEAN CORPUSCULAR HEMOGLOBIN CONC (BEAKER) (test code = 752) 30.7 GM/DL 32.2-35.5 L RED CELL DISTRIBUTION WIDTH (BEAKER) (test code = 412) 13.2 % 11.7-14.4 PLATELET COUNT (BEAKER) (test code = 756) 212 K/CU MM 150-450 MEAN PLATELET VOLUME (BEAKER) (test code = 754) 9.4 fL 9.4-12 .3 NUCLEATED RED BLOOD CELLS (BEAKER) (test code = 413) 0 /100 WBC 0 -0 NEUTROPHILS RELATIVE PERCENT (BEAKER) (test code = 429) 72 % LYMPHOCYTES RELATIVE PERCENT (BEAKER) (test code = 430) 17 % MONOCYTES RELATIVE PERCENT (BEAKER) (test code = 431) 10 % EOSINOPHILS RELATIVE PERCENT (BEAKER) (test code = 432) 1 % BASOPHILS RELATIVE PERCENT (BEAKER) (test code = 437) 0 % NEUTROPHILS ABSOLUTE COUNT (BEAKER) (test code = 670) 7.33 K/ L 1.56-6.13 H LYMPHOCYTES ABSOLUTE COUNT (BEAKER) (test code = 414) 1.68 K/ L 1.18-3.74 MONOCYTES ABSOLUTE COUNT (BEAKER) (test code = 415) 1.05 K/ L 0. 24-0.36 H EOSINOPHILS ABSOLUTE COUNT (BEAKER) (test code = 416) 0.08 K/ L 0.04-0.36 BASOPHILS ABSOLUTE COUNT (BEAKER) (test code = 417) 0.02 K/ L 0. 01-0.08 IMMATURE GRANULOCYTES-RELATIVE PERCENT (BEAKER) (test code = 2801) 0 % 0-1 BASIC METABOLIC [id number] 12:44:00* Test Item Value Reference Range Interpretation Comments SODIUM (BEAKER) (test code = 381) 133 meq/L 136-145 L POTASSIUM (BEAKER) (test code = 379) 4.0 meq/L 3.5-5.1 CHLORIDE (BEAKER) (test code = 382) 104 meq/L 98-107 CO2 (BEAKER) (test code = 355) 22 meq/L 22-29 BLOOD UREA NITROGEN (BEAKER) (test code = 354) 27 mg/dL 7-21 H CREATININE (BEAKER) (test code = 358) 2.62 mg/dL 0.57-1.25 H GLUCOSE RANDOM (BEAKER) (test code = 652) 105 mg/dL 70-105 CALCIUM (BEAKER) (test code = 697) 9.2 mg/dL 8.4-10.2 EGFR (BEAKER) (test code = 1092) 24 mL/min/1.73 sq m ESTIMATED GFR IS NOT ACCURATE CREATININE CLEARANCE IN PREDICTING GLOMERULAR FILTRATION RATE. ESTIMATED GFR IS NOT APPLICABLE FOR DIALYSIS PATIENTS. Senior Research Fellow ID - JAELYN CBlood Culture - Routine (Right Venipuncture)2019-09-18 07:00:00* Test Item Value Reference Range Interpretation Comments Result (test code = 6463-4) No growth in 5 days [facility] [id number] 07:00:00* Test Item Value Reference Range Interpretation Comments CULTURE (BEAKER) (test code = 1095) No growth in 5 days BASIC METABOLIC [id number] 06:34:00* Test Item Value Reference Range Interpretation Comments SODIUM (BEAKER) (test code = 381) 136 meq/L 136-145 POTASSIUM (BEAKER) (test code = 379) 4.1 meq/L 3.5-5.1 CHLORIDE (BEAKER) (test code = 382) 107 meq/L 98-107 CO2 (BEAKER) (test code = 355) 21 meq/L 22-29 L BLOOD UREA NITROGEN (BEAKER) (test code = 354) 24 mg/dL 7-21 H CREATININE (BEAKER) (test code = 358) 2.52 mg/dL 0.57-1.25 H GLUCOSE RANDOM (BEAKER) (test code = 652) 106 mg/dL 70-105 H CALCIUM (BEAKER) (test code = 697) 9.6 mg/dL 8.4-10.2 EGFR (BEAKER) (test code = 1092) 25 mL/min/1.73 sq m ESTIMATED GFR IS NOT ACCURATE CREATININE CLEARANCE IN PREDICTING GLOMERULAR FILTRATION RATE. ESTIMATED GFR IS NOT APPLICABLE FOR DIALYSIS PATIENTS. Senior Research Fellow ID - WILFRED [id number] 06:23:00* Test Item Value Reference Range Interpretation Comments MAGNESIUM (BEAKER) (test code = 627) 1.5 mg/dL 1.6-2.6 L Senior Research Fellow ID - WILFRED [facility] W/PLT COUNT & AUTO [id number] 05:44:00* Test Item Value Reference Range Interpretation Comments WHITE BLOOD CELL COUNT (BEAKER) (test code = 775) 9.0 K/ L 3.5- 10.5 RED BLOOD CELL COUNT (BEAKER) (test code = 761) 3.85 M/ L 3.93-5 .22 L HEMOGLOBIN (BEAKER) (test code = 410) 10.6 GM/DL 11.2-15.7 L HEMATOCRIT (BEAKER) (test code = 411) 35.1 % 34.1-44.9 MEAN CORPUSCULAR VOLUME (BEAKER) (test code = 753) 91.2 fL 79. 4-94.8 MEAN CORPUSCULAR HEMOGLOBIN (BEAKER) (test code = 751) 27.5 pg 25.6-32.2 MEAN CORPUSCULAR HEMOGLOBIN CONC (BEAKER) (test code = 752) 30.2 GM/DL 32.2-35.5 L RED CELL DISTRIBUTION WIDTH (BEAKER) (test code = 412) 13.2 % 11.7-14.4 PLATELET COUNT (BEAKER) (test code = 756) 240 K/CU MM 150-450 MEAN PLATELET VOLUME (BEAKER) (test code = 754) 9.6 fL 9.4-12 .3 NUCLEATED RED BLOOD CELLS (BEAKER) (test code = 413) 0 /100 WBC 0 -0 NEUTROPHILS RELATIVE PERCENT (BEAKER) (test code = 429) 72 % LYMPHOCYTES RELATIVE PERCENT (BEAKER) (test code = 430) 19 % MONOCYTES RELATIVE PERCENT (BEAKER) (test code = 431) 9 % EOSINOPHILS RELATIVE PERCENT (BEAKER) (test code = 432) 1 % BASOPHILS RELATIVE PERCENT (BEAKER) (test code = 437) 0 % NEUTROPHILS ABSOLUTE COUNT (BEAKER) (test code = 670) 6.40 K/ L 1.56-6.13 H LYMPHOCYTES ABSOLUTE COUNT (BEAKER) (test code = 414) 1.67 K/ L 1.18-3.74 MONOCYTES ABSOLUTE COUNT (BEAKER) (test code = 415) 0.79 K/ L 0. 24-0.36 H EOSINOPHILS ABSOLUTE COUNT (BEAKER) (test code = 416) 0.05 K/ L 0.04-0.36 BASOPHILS ABSOLUTE COUNT (BEAKER) (test code = 417) 0.02 K/ L 0. 01-0.08 IMMATURE GRANULOCYTES-RELATIVE PERCENT (BEAKER) (test code = 2801) 0 % 0-1 CT, BRAIN, WITHOUT [id number] 18:19:00FINAL REPORT EXAM: CT, BRAIN, WITHOUT CONTRAST CLINICAL [...] Predominantly clear Tympanomastoid Cavities: Normal Other: None IMPRESSION:No acute intracranial abnormality. If there is persistent clinical concern for intracranial pathology, MR examination is recommended for further characterization. Signed: Philip Acuna MDRleann Stormy ified Date/Time: 09/17/2019 18:19:46 brain without IV [id number] 18:19:00 Interface, External Ris In - 09/17/2019 6:21 PM CDTFINAL REPORT PATIENT ID: [id number] EXAM: CT, BRAIN, WITHOUT CONTRAST CLINICAL INDICATION: Headache. SUKI HNIQUE: CT images from skull base to vertex without IV contrast. This exam was performed according to the departmental dose optimization program which includes automated exposure control, adjustment of the mA and/or kV according to the pat ient size, and/or use of an iterative reconstruction technique. COMPARISON: 12/20 FINDINGS: Parenchyma: No evidence of acute infarction. No hemorrhage. No mass or mass effect. Extra-axial Collection: None Ventricular System: Norm al Osseous Structures: No acute osseous abnormality. Included Orbits: Normal P aranasal Sinuses: Predominantly clear Tympanomastoid Cavities: Normal Other: None IMPRESSION:No acute intracranial abnormality. If there is persistent clinic al concern for intracranial pathology, MR examination is recommended for further characterization. Signed: Philip Acuna MDRleann Verified Date/Time: 09/17/2019 18:19:46 [facility]Urinal[facility] + Reflex to Culture 2019-09-17 12:31:00* Test Item Value Reference Range Interpretation Comments Color, UA (test code = 5778-6) Yellow Clarity, UA (test code = 5767-9) Clear Specific [place], UA (test code = 5811-5) 1.014 1.001-1.035 pH, UA (test code = 5803-2) 6.0 5.0-8.0 Protein, UA (test code = 72009-0) Negative Negative Glucose, UA (test code = 365) Negative Negative Ketones, UA (test code = 2514-8) Negative Negative Bilirubin, UA (test code = 81696-8) Negative Negative Blood, UA (test code = 74586-9) Small Negative A Nitrite, UA (test code = 5802-4) Negative Negative Leukocytes, UA (test code = 5799-2) Negative Negative Urobilinogen, UA (test code = 42557-7) 0.2 mg/dL 0.2-1 RBC, UA (test code = 89922-8) 26 /HPF WBC, UA (test code = 5821-4) 3 /HPF Squam Epithel, UA (test code = 44333-0) <1 /HPF Specimen Source (test code = 2795) CESAR (test code = CESAR) Senior Research Fellow ID - tech Lab Interpretation (test code = 69713-3) [facility]normal [facility] [id number] 12:31:00* Test Item Value Reference Range Interpretation Comments COLOR (BEAKER) (test code = 470) Yellow CLARITY (BEAKER) (test code = 469) Clear SPECIFIC GRAVITY UA (BEAKER) (test code = 468) 1.014 1.001-1 .035 PH UA (BEAKER) (test code = 467) 6.0 5.0-8.0 PROTEIN UA (BEAKER) (test code = 464) Negative Negative GLUCOSE UA (BEAKER) (test code = 365) Negative Negative KETONES UA (BEAKER) (test code = 371) Negative Negative BILIRUBIN UA (BEAKER) (test code = 462) Negative Negative BLOOD UA (BEAKER) (test code = 461) Small Negative A NITRITE UA (BEAKER) (test code = 465) Negative Negative LEUKOCYTE ESTERASE UA (BEAKER) (test code = 466) Negative Negat radha UROBILINOGEN UA (BEAKER) (test code = 463) 0.2 mg/dL 0.2-1.0 RBC UA (BEAKER) (test code = 519) 26 /HPF WBC UA (BEAKER) (test code = 520) 3 /HPF SQUAMOUS EPITHELIAL (BEAKER) (test code = 516) < /HPF SOURCE(BEAKER) (test code = 2795) Senior Research Fellow ID - [id number] 06:48:00* Test Item Value Reference Range Interpretation Comments MAGNESIUM (BEAKER) (test code = 627) 1.5 mg/dL 1.6-2.6 L Senior Research Fellow ID - WILFRED MBASIC METABOLIC [id number] 06:48:00* Test Item Value Reference Range Interpretation Comments SODIUM (BEAKER) (test code = 381) 135 meq/L 136-145 L POTASSIUM (BEAKER) (test code = 379) 3.9 meq/L 3.5-5.1 CHLORIDE (BEAKER) (test code = 382) 107 meq/L 98-107 CO2 (BEAKER) (test code = 355) 20 meq/L 22-29 L BLOOD UREA NITROGEN (BEAKER) (test code = 354) 26 mg/dL 7-21 H CREATININE (BEAKER) (test code = 358) 1.99 mg/dL 0.57-1.25 H GLUCOSE RANDOM (BEAKER) (test code = 652) 90 mg/dL 70-105 CALCIUM (BEAKER) (test code = 697) 9.4 mg/dL 8.4-10.2 EGFR (BEAKER) (test code = 1092) 32 mL/min/1.73 sq m ESTIMATED GFR IS NOT ACCURATE CREATININE CLEARANCE IN PREDICTING GLOMERULAR FILTRATION RATE. ESTIMATED GFR IS NOT APPLICABLE FOR DIALYSIS PATIENTS. Senior Research Fellow ID - WILFRED [facility] W/PLT COUNT & AUTO [id number] 06:00:00* Test Item Value Reference Range Interpretation Comments WHITE BLOOD CELL COUNT (BEAKER) (test code = 775) 8.8 K/ L 3.5- 10.5 RED BLOOD CELL COUNT (BEAKER) (test code = 761) 3.73 M/ L 3.93-5 .22 L HEMOGLOBIN (BEAKER) (test code = 410) 10.2 GM/DL 11.2-15.7 L HEMATOCRIT (BEAKER) (test code = 411) 33.8 % 34.1-44.9 L MEAN CORPUSCULAR VOLUME (BEAKER) (test code = 753) 90.6 fL 79. 4-94.8 MEAN CORPUSCULAR HEMOGLOBIN (BEAKER) (test code = 751) 27.3 pg 25.6-32.2 MEAN CORPUSCULAR HEMOGLOBIN CONC (BEAKER) (test code = 752) 30.2 GM/DL 32.2-35.5 L RED CELL DISTRIBUTION WIDTH (BEAKER) (test code = 412) 13.2 % 11.7-14.4 PLATELET COUNT (BEAKER) (test code = 756) 213 K/CU MM 150-450 MEAN PLATELET VOLUME (BEAKER) (test code = 754) 9.4 fL 9.4-12 .3 NUCLEATED RED BLOOD CELLS (BEAKER) (test code = 413) 0 /100 WBC 0 -0 NEUTROPHILS RELATIVE PERCENT (BEAKER) (test code = 429) 72 % LYMPHOCYTES RELATIVE PERCENT (BEAKER) (test code = 430) 17 % MONOCYTES RELATIVE PERCENT (BEAKER) (test code = 431) 10 % EOSINOPHILS RELATIVE PERCENT (BEAKER) (test code = 432) 1 % BASOPHILS RELATIVE PERCENT (BEAKER) (test code = 437) 0 % NEUTROPHILS ABSOLUTE COUNT (BEAKER) (test code = 670) 6.39 K/ L 1.56-6.13 H LYMPHOCYTES ABSOLUTE COUNT (BEAKER) (test code = 414) 1.49 K/ L 1.18-3.74 MONOCYTES ABSOLUTE COUNT (BEAKER) (test code = 415) 0.84 K/ L 0. 24-0.36 H EOSINOPHILS ABSOLUTE COUNT (BEAKER) (test code = 416) 0.07 K/ L 0.04-0.36 BASOPHILS ABSOLUTE COUNT (BEAKER) (test code = 417) 0.02 K/ L 0. 01-0.08 IMMATURE GRANULOCYTES-RELATIVE PERCENT (BEAKER) (test code = 2801) 0 % 0-1 CYCLOSPORINE [id number] 12:14:00* Test Item Value Reference Range Interpretation Comments CYCLOSPORINE BLOOD (BEAKER) (test code = 672) 120 ng/mL <400 Senior Research Fellow ID - [id number] 07:59:00* Test Item Value Reference Range Interpretation Comments MAGNESIUM (BEAKER) (test code = 627) 1.5 mg/dL 1.6-2.6 L Senior Research Fellow ID - AAHAMIDBASIC METABOLIC [id number] 07:59:00* Test Item Value Reference Range Interpretation Comments SODIUM (BEAKER) (test code = 381) 135 meq/L 136-145 L POTASSIUM (BEAKER) (test code = 379) 3.9 meq/L 3.5-5.1 CHLORIDE (BEAKER) (test code = 382) 111 meq/L 98-107 H CO2 (BEAKER) (test code = 355) 17 meq/L 22-29 L BLOOD UREA NITROGEN (BEAKER) (test code = 354) 24 mg/dL 7-21 H CREATININE (BEAKER) (test code = 358) 1.86 mg/dL 0.57-1.25 H GLUCOSE RANDOM (BEAKER) (test code = 652) 79 mg/dL 70-105 CALCIUM (BEAKER) (test code = 697) 9.0 mg/dL 8.4-10.2 EGFR (BEAKER) (test code = 1092) 35 mL/min/1.73 sq m ESTIMATED GFR IS NOT ACCURATE CREATININE CLEARANCE IN PREDICTING GLOMERULAR FILTRATION RATE. ESTIMATED GFR IS NOT APPLICABLE FOR DIALYSIS PATIENTS. Senior Research Fellow ID - AAHAMIDCBC W/PLT COUNT & AUTO [id number] 06:37:00* Test Item Value Reference Range Interpretation Comments WHITE BLOOD CELL COUNT (BEAKER) (test code = 775) 8.2 K/ L 3.5- 10.5 RED BLOOD CELL COUNT (BEAKER) (test code = 761) 3.38 M/ L 3.93-5 .22 L HEMOGLOBIN (BEAKER) (test code = 410) 9.5 GM/DL 11.2-15.7 L HEMATOCRIT (BEAKER) (test code = 411) 30.8 % 34.1-44.9 L MEAN CORPUSCULAR VOLUME (BEAKER) (test code = 753) 91.1 fL 79. 4-94.8 MEAN CORPUSCULAR HEMOGLOBIN (BEAKER) (test code = 751) 28.1 pg 25.6-32.2 MEAN CORPUSCULAR HEMOGLOBIN CONC (BEAKER) (test code = 752) 30.8 GM/DL 32.2-35.5 L RED CELL DISTRIBUTION WIDTH (BEAKER) (test code = 412) 13.1 % 11.7-14.4 PLATELET COUNT (BEAKER) (test code = 756) 207 K/CU MM 150-450 MEAN PLATELET VOLUME (BEAKER) (test code = 754) 9.2 fL 9.4-12 .3 L NUCLEATED RED BLOOD CELLS (BEAKER) (test code = 413) 0 /100 WBC 0 -0 NEUTROPHILS RELATIVE PERCENT (BEAKER) (test code = 429) 70 % LYMPHOCYTES RELATIVE PERCENT (BEAKER) (test code = 430) 18 % MONOCYTES RELATIVE PERCENT (BEAKER) (test code = 431) 11 % EOSINOPHILS RELATIVE PERCENT (BEAKER) (test code = 432) 1 % BASOPHILS RELATIVE PERCENT (BEAKER) (test code = 437) 0 % NEUTROPHILS ABSOLUTE COUNT (BEAKER) (test code = 670) 5.73 K/ L 1.56-6.13 LYMPHOCYTES ABSOLUTE COUNT (BEAKER) (test code = 414) 1.47 K/ L 1.18-3.74 MONOCYTES ABSOLUTE COUNT (BEAKER) (test code = 415) 0.86 K/ L 0. 24-0.36 H EOSINOPHILS ABSOLUTE COUNT (BEAKER) (test code = 416) 0.07 K/ L 0.04-0.36 BASOPHILS ABSOLUTE COUNT (BEAKER) (test code = 417) 0.02 K/ L 0. 01-0.08 IMMATURE GRANULOCYTES-RELATIVE PERCENT (BEAKER) (test code = 2801) 0 % 0-1 CT, [id number] 22:24:00Please specify:->Renal Stone ProtocolFINAL REPORT CT, ABDOMEN \T\ PELVIS, WITHOUT IV CONTRAST INDICATION: Flank pain, UTI, renal transplant COMPARISON: None TECHNIQUE:Noncontrast abdomen and pelvis CT. Coronal and sagittal reformatted images obtained. DOSE REDUCTION: Dose modulation, iterative reconstruction, and/or weight-based a djustment of the mA/kV was utilized to reduce the radiation dose to as low as re asonably achievable. FINDINGS: Lower thorax: Visible airspaces clear. No pleural effusion. The heart is normal in size. No pericardial effusion. Liver: Lack of intravenous contrast material limits evaluation for suspicious hepatic lesions. Gallbladder and biliary tree: No ductal dilation or stones.Pancreas: No acute fi ndings.Spleen: No acute findingsAdrenal Glands: No acute findings.Kidneys and ur eters: Bilateral [place] kidneys are atrophic. No contour deforming lesions or hy dronephrosis. There is a right lower quadrant renal transplant. No hydronephrosi s or perinephric fluid collections around the transplant kidney there is minimal perinephric inflammatory stranding. Right lower pole nephrolithiasis. Evaluation of the parenchyma is limited given lack of intravenous contrast material.Bladder and reproductive organs: Uterus is age-appropriate. No suspicious adnexal mas ses. The bladder is unremarkable. Stomach and Duodenum: No significant findings. Small and large intestine: Normal calibers.Appendix: Normal. Major vascular stru ctures: Normal aortic caliber.Peritoneum and retroperitoneum: No free air, fluid or adenopathy. Skeleton: No acute bony abnormality.Additional findings: Non e. IMPRESSION: Surgical changes upper right lower quadrant renal transplant wit h minimal right perinephric stranding. Nonobstructing punctate nephrolithiasis i n the lower pole of the renal transplant. No perinephric fluid collection or hy dronephrosis. Signed: Diane Gupta MDReport Verified Date/Time: 020 22:24:05 abdomen/pelvis without iv [id number] 22:24:00Interface, External Ris In - 09/15/2019 10:[address], ABDOMEN \T\ PELVIS, WITHOUT IV CONTRAST INDICATION: Flank pain, UTI, renal transplant COMPARISON: None TECHNIQUE:Noncontrast abdomen and pelvis CT. Coronal and sagittal reformatted images obtained. DOSE REDUCTION: Dose modulat ion, iterative reconstruction, and/or weight-based adjustment of the mA/kV was u tilized to reduce the radiation dose to as low as reasonably achievable. FINDING S: Lower thorax: Visible airspaces clear. No pleural effusion. The heart is norm al in size. No pericardial effusion. Liver: Lack of intravenous contrast materia l limits evaluation for suspicious hepatic lesions. Gallbladder and biliary tree : No ductal dilation or stones.Pancreas: No acute findings.Spleen: No acute find ingsAdrenal Glands: No acute findings.Kidneys and ureters: Bilateral [place] kidn eys are atrophic. No contour deforming lesions or hydronephrosis. There is a rig ht lower quadrant renal transplant. No hydronephrosis or perinephric fluid colle ctions around the transplant kidney there is minimal perinephric inflammatory st randing. Right lower pole nephrolithiasis. Evaluation of the parenchyma is limit ed given lack of intravenous contrast material.Bladder and reproductive organs: Uterus is age-appropriate. No suspicious adnexal masses. The bladder is unremark able. Stomach and Duodenum: No significant findings.Small and large intestine: N ormal calibers.Appendix: Normal. Major vascular structures: Normal aortic calibe r.Peritoneum and retroperitoneum: No free air, fluid or adenopathy. Skeleton : No acute bony abnormality.Additional findings: None. IMPRESSION: Surgical brayan nges upper right lower quadrant renal transplant with minimal right perinephric stranding. Nonobstructing punctate nephrolithiasis in the lower pole of the tanner l transplant. No perinephric fluid collection or hydronephrosis. Signed: Diane Gavin MDReport Verified Date/Time: 09/15/2019 22:24:05 Electronicall y signed by: DIANE GUPTA MD on 09/15/2019 10:24 PM [facility]CL[facility]INE [id number] 11:36:00* Test Item Value Reference Range Interpretation Comments CYCLOSPORINE BLOOD (BEAKER) (test code = 672) 133 ng/mL <400 Senior Research Fellow ID - KRYSTIAN MUric [id number] 07:20:00* Test Item Value Reference Range Interpretation Comments Uric Acid (test code = 3084-1) 8.5 mg/dL 2.6-7.2 H CESAR (test code = CESAR) Senior Research Fellow ID - LM Lab Interpretation (test code = 05839-3) Abnormal [facility] CenterURIC [id number] 07:20:00* Test Item Value Reference Range Interpretation Comments URIC ACID (BEAKER) (test code = 773) 8.5 mg/dL 2.6-7.2 H Senior Research Fellow ID - [id number] 07:20:00* Test Item Value Reference Range Interpretation Comments MAGNESIUM (BEAKER) (test code = 627) 1.6 mg/dL 1.6-2.6 Senior Research Fellow ID - LMBASIC METABOLIC [id number] 07:20:00* Test Item Value Reference Range Interpretation Comments SODIUM (BEAKER) (test code = 381) 138 meq/L 136-145 POTASSIUM (BEAKER) (test code = 379) 4.2 meq/L 3.5-5.1 CHLORIDE (BEAKER) (test code = 382) 112 meq/L 98-107 H CO2 (BEAKER) (test code = 355) 20 meq/L 22-29 L BLOOD UREA NITROGEN (BEAKER) (test code = 354) 28 mg/dL 7-21 H CREATININE (BEAKER) (test code = 358) 2.02 mg/dL 0.57-1.25 H GLUCOSE RANDOM (BEAKER) (test code = 652) 79 mg/dL 70-105 CALCIUM (BEAKER) (test code = 697) 8.8 mg/dL 8.4-10.2 EGFR (BEAKER) (test code = 1092) 32 mL/min/1.73 sq m ESTIMATED GFR IS NOT ACCURATE CREATININE CLEARANCE IN PREDICTING GLOMERULAR FILTRATION RATE. ESTIMATED GFR IS NOT APPLICABLE FOR DIALYSIS PATIENTS. Senior Research Fellow ID - LMVancomycin level, [id number] 07:18:00* Test Item Value Reference Range Interpretation Comments Vancomycin Rm (test code = 53276-8) 8.1 ug/mL CESAR (test code = CESAR) Reference Range: No NormalsOperator ID - LM [facility] HospitalVANCOMYCIN LEVEL, [id number] 07:18:00* Test Item Value Reference Range Interpretation Comments VANCOMYCIN RANDOM (BEAKER) (test code = 523) 8.1 ug/mL Reference Range: No NormalsOperator ID - LMCBC W/PLT COUNT & AUTO DIFFERENTIAL 2019-09-15 06:39:00* Test Item Value Reference Range Interpretation Comments WHITE BLOOD CELL COUNT (BEAKER) (test code = 775) 7.5 K/ L 3.5- 10.5 RED BLOOD CELL COUNT (BEAKER) (test code = 761) 3.43 M/ L 3.93-5 .22 L HEMOGLOBIN (BEAKER) (test code = 410) 9.3 GM/DL 11.2-15.7 L HEMATOCRIT (BEAKER) (test code = 411) 31.2 % 34.1-44.9 L MEAN CORPUSCULAR VOLUME (BEAKER) (test code = 753) 91.0 fL 79. 4-94.8 MEAN CORPUSCULAR HEMOGLOBIN (BEAKER) (test code = 751) 27.1 pg 25.6-32.2 MEAN CORPUSCULAR HEMOGLOBIN CONC (BEAKER) (test code = 752) 29.8 GM/DL 32.2-35.5 L RED CELL DISTRIBUTION WIDTH (BEAKER) (test code = 412) 13.2 % 11.7-14.4 PLATELET COUNT (BEAKER) (test code = 756) 235 K/CU MM 150-450 MEAN PLATELET VOLUME (BEAKER) (test code = 754) 9.6 fL 9.4-12 .3 NUCLEATED RED BLOOD CELLS (BEAKER) (test code = 413) 0 /100 WBC 0 -0 NEUTROPHILS RELATIVE PERCENT (BEAKER) (test code = 429) 68 % LYMPHOCYTES RELATIVE PERCENT (BEAKER) (test code = 430) 20 % MONOCYTES RELATIVE PERCENT (BEAKER) (test code = 431) 10 % EOSINOPHILS RELATIVE PERCENT (BEAKER) (test code = 432) 1 % BASOPHILS RELATIVE PERCENT (BEAKER) (test code = 437) 0 % NEUTROPHILS ABSOLUTE COUNT (BEAKER) (test code = 670) 5.12 K/ L 1.56-6.13 LYMPHOCYTES ABSOLUTE COUNT (BEAKER) (test code = 414) 1.53 K/ L 1.18-3.74 MONOCYTES ABSOLUTE COUNT (BEAKER) (test code = 415) 0.78 K/ L 0. 24-0.36 H EOSINOPHILS ABSOLUTE COUNT (BEAKER) (test code = 416) 0.04 K/ L 0.04-0.36 BASOPHILS ABSOLUTE COUNT (BEAKER) (test code = 417) 0.01 K/ L 0. 01-0.08 IMMATURE GRANULOCYTES-RELATIVE PERCENT (BEAKER) (test code = 2801) 0 % 0-1 CYCLOSPORINE [id number] 12:53:00* Test Item Value Reference Range Interpretation Comments CYCLOSPORINE BLOOD (BEAKER) (test code = 672) 107 ng/mL <400 Senior Research Fellow ID - [place] [id number] 06:36:00* Test Item Value Reference Range Interpretation Comments MAGNESIUM (BEAKER) (test code = 627) 1.8 mg/dL 1.6-2.6 Senior Research Fellow ID - BSBASIC METABOLIC [id number] 06:36:00* Test Item Value Reference Range Interpretation Comments SODIUM (BEAKER) (test code = 381) 138 meq/L 136-145 POTASSIUM (BEAKER) (test code = 379) 4.1 meq/L 3.5-5.1 CHLORIDE (BEAKER) (test code = 382) 113 meq/L 98-107 H CO2 (BEAKER) (test code = 355) 19 meq/L 22-29 L BLOOD UREA NITROGEN (BEAKER) (test code = 354) 30 mg/dL 7-21 H CREATININE (BEAKER) (test code = 358) 2.12 mg/dL 0.57-1.25 H GLUCOSE RANDOM (BEAKER) (test code = 652) 80 mg/dL 70-105 CALCIUM (BEAKER) (test code = 697) 8.8 mg/dL 8.4-10.2 EGFR (BEAKER) (test code = 1092) 30 mL/min/1.73 sq m ESTIMATED GFR IS NOT ACCURATE CREATININE CLEARANCE IN PREDICTING GLOMERULAR FILTRATION RATE. ESTIMATED GFR IS NOT APPLICABLE FOR DIALYSIS PATIENTS. Senior Research Fellow ID - BSCBC W/PLT COUNT & AUTO [id number] 06:07:00* Test Item Value Reference Range Interpretation Comments WHITE BLOOD CELL COUNT (BEAKER) (test code = 775) 8.5 K/ L 3.5- 10.5 RED BLOOD CELL COUNT (BEAKER) (test code = 761) 3.44 M/ L 3.93-5 .22 L HEMOGLOBIN (BEAKER) (test code = 410) 9.5 GM/DL 11.2-15.7 L HEMATOCRIT (BEAKER) (test code = 411) 30.9 % 34.1-44.9 L MEAN CORPUSCULAR VOLUME (BEAKER) (test code = 753) 89.8 fL 79. 4-94.8 MEAN CORPUSCULAR HEMOGLOBIN (BEAKER) (test code = 751) 27.6 pg 25.6-32.2 MEAN CORPUSCULAR HEMOGLOBIN CONC (BEAKER) (test code = 752) 30.7 GM/DL 32.2-35.5 L RED CELL DISTRIBUTION WIDTH (BEAKER) (test code = 412) 13.2 % 11.7-14.4 PLATELET COUNT (BEAKER) (test code = 756) 199 K/CU MM 150-450 MEAN PLATELET VOLUME (BEAKER) (test code = 754) 9.6 fL 9.4-12 .3 NUCLEATED RED BLOOD CELLS (BEAKER) (test code = 413) 0 /100 WBC 0 -0 NEUTROPHILS RELATIVE PERCENT (BEAKER) (test code = 429) 69 % LYMPHOCYTES RELATIVE PERCENT (BEAKER) (test code = 430) 20 % MONOCYTES RELATIVE PERCENT (BEAKER) (test code = 431) 10 % EOSINOPHILS RELATIVE PERCENT (BEAKER) (test code = 432) 0 % BASOPHILS RELATIVE PERCENT (BEAKER) (test code = 437) 0 % NEUTROPHILS ABSOLUTE COUNT (BEAKER) (test code = 670) 5.90 K/ L 1.56-6.13 LYMPHOCYTES ABSOLUTE COUNT (BEAKER) (test code = 414) 1.66 K/ L 1.18-3.74 MONOCYTES ABSOLUTE COUNT (BEAKER) (test code = 415) 0.86 K/ L 0. 24-0.36 H EOSINOPHILS ABSOLUTE COUNT (BEAKER) (test code = 416) 0.03 K/ L 0.04-0.36 L BASOPHILS ABSOLUTE COUNT (BEAKER) (test code = 417) 0.01 K/ L 0. 01-0.08 IMMATURE GRANULOCYTES-RELATIVE PERCENT (BEAKER) (test code = 2801) 1 % 0-1 Hepatic function [id number] 07:04:00* Test Item Value Reference Range Interpretation Comments Protein, Total (test code = 2885-2) 7.5 6.0- 8.3 gm/dL Albumin (test code = 18014-8) 3.9 g/dL 3.5-5 Total Bilirubin (test code = 1974-2) 0.8 mg/dL 0.2-1.2 Bilirubin, Direct (test code = 1967-7) 0.4 mg/dL 0.1-0.5 Alkaline Phosphatase (test code = 6768-6) 77 U/L 40-150 AST (test code = 1920-8) 16 U/L 5-34 ALT (test code = 1742-6) 17 U/L 6-55 CESAR (test code = CESAR) Senior Research Fellow ID - PIAYA L Lab Interpretation (test code = 71880-2) [facility] 07:04:00* Test Item Value Reference Range Interpretation Comments MAGNESIUM (BEAKER) (test code = 627) 2.1 mg/dL 1.6-2.6 Senior Research Fellow ID - PIAYA LBASIC METABOLIC [id number] 07:04:00* Test Item Value Reference Range Interpretation Comments SODIUM (BEAKER) (test code = 381) 138 meq/L 136-145 POTASSIUM (BEAKER) (test code = 379) 4.2 meq/L 3.5-5.1 CHLORIDE (BEAKER) (test code = 382) 110 meq/L 98-107 H CO2 (BEAKER) (test code = 355) 20 meq/L 22-29 L BLOOD UREA NITROGEN (BEAKER) (test code = 354) 29 mg/dL 7-21 H CREATININE (BEAKER) (test code = 358) 2.13 mg/dL 0.57-1.25 H GLUCOSE RANDOM (BEAKER) (test code = 652) 75 mg/dL 70-105 CALCIUM (BEAKER) (test code = 697) 9.5 mg/dL 8.4-10.2 EGFR (BEAKER) (test code = 1092) 30 mL/min/1.73 sq m ESTIMATED GFR IS NOT ACCURATE CREATININE CLEARANCE IN PREDICTING GLOMERULAR FILTRATION RATE. ESTIMATED GFR IS NOT APPLICABLE FOR DIALYSIS PATIENTS. Senior Research Fellow ANUJ MCCORD LHEPATIC FUNCTION [id number] 07:04:00* Test Item Value Reference Range Interpretation Comments TOTAL PROTEIN (BEAKER) (test code = 770) 7.5 gm/dL 6.0-8.3 ALBUMIN (BEAKER) (test code = 1145) 3.9 g/dL 3.5-5.0 BILIRUBIN TOTAL (BEAKER) (test code = 377) 0.8 mg/dL 0.2-1.2 BILIRUBIN DIRECT (BEAKER) (test code = 706) 0.4 mg/dL 0.1-0.5 ALKALINE PHOSPHATASE (BEAKER) (test code = 346) 77 U/L 40-150 AST (SGOT) (BEAKER) (test code = 353) 16 U/L 5-34 ALT (SGPT) (BEAKER) (test code = 347) 17 U/L 6-55 Senior Research Fellow ANUJ MCCORD LCBC W/PLT COUNT & AUTO [id number] 06:36:00* Test Item Value Reference Range Interpretation Comments WHITE BLOOD CELL COUNT (BEAKER) (test code = 775) 9.9 K/ L 3.5- 10.5 RED BLOOD CELL COUNT (BEAKER) (test code = 761) 3.73 M/ L 3.93-5 .22 L HEMOGLOBIN (BEAKER) (test code = 410) 10.3 GM/DL 11.2-15.7 L HEMATOCRIT (BEAKER) (test code = 411) 33.9 % 34.1-44.9 L MEAN CORPUSCULAR VOLUME (BEAKER) (test code = 753) 90.9 fL 79. 4-94.8 MEAN CORPUSCULAR HEMOGLOBIN (BEAKER) (test code = 751) 27.6 pg 25.6-32.2 MEAN CORPUSCULAR HEMOGLOBIN CONC (BEAKER) (test code = 752) 30.4 GM/DL 32.2-35.5 L RED CELL DISTRIBUTION WIDTH (BEAKER) (test code = 412) 13.2 % 11.7-14.4 PLATELET COUNT (BEAKER) (test code = 756) 223 K/CU MM 150-450 MEAN PLATELET VOLUME (BEAKER) (test code = 754) 9.6 fL 9.4-12 .3 NUCLEATED RED BLOOD CELLS (BEAKER) (test code = 413) 0 /100 WBC 0 -0 NEUTROPHILS RELATIVE PERCENT (BEAKER) (test code = 429) 76 % LYMPHOCYTES RELATIVE PERCENT (BEAKER) (test code = 430) 15 % MONOCYTES RELATIVE PERCENT (BEAKER) (test code = 431) 8 % EOSINOPHILS RELATIVE PERCENT (BEAKER) (test code = 432) 0 % BASOPHILS RELATIVE PERCENT (BEAKER) (test code = 437) 0 % NEUTROPHILS ABSOLUTE COUNT (BEAKER) (test code = 670) 7.49 K/ L 1.56-6.13 H LYMPHOCYTES ABSOLUTE COUNT (BEAKER) (test code = 414) 1.52 K/ L 1.18-3.74 MONOCYTES ABSOLUTE COUNT (BEAKER) (test code = 415) 0.83 K/ L 0. 24-0.36 H EOSINOPHILS ABSOLUTE COUNT (BEAKER) (test code = 416) 0.03 K/ L 0.04-0.36 L BASOPHILS ABSOLUTE COUNT (BEAKER) (test code = 417) 0.01 K/ L 0. 01-0.08 IMMATURE GRANULOCYTES-RELATIVE PERCENT (BEAKER) (test code = 2801) 0 % 0-1 RAD, ABDOMEN/KUB, 1 VIEW [id number] 20:48:00Reason for exam:-> nausea/vomitingReason for exam:->constipationIs the patient ?->NoFINAL REPORT EXAM: KUB CLINICAL HISTORY: Nausea, vomiting, constipation FINDINGS: There is nonobstructive bowel gas pattern with mild to moderate retained feces in the ascending and transverse colon. There is no evide nce of pneumoperitoneum or pathological calcifications. The regional osseous str uctures are unremarkable. Signed: Tabatha Shane MDReport Verified Date/Time: 09/12/2019 20:48:58 Reading Location: [facility] B1 C013T Transitional Reading Room abdomen / KUB 1 [id number] 20:48:00Interface, External Ris In - 09/12/2019 8:51 PM CDTFINAL REPORT EXAM: KUB CLINICAL HISTORY: Nausea, vomiting, constipation FINDINGS: There is nonobstructive bowel gas pattern with mild to moderate retained feces in the ascending and transverse colon. There is no evidence of pneumoperitoneum or pathological calcifications. The regional osseous structures are unremarkable. Signed: Tabatha Shane MDReport Verified Date/Time: 09/12/2019 20:48:58 Reading Location: [address] Transitional Reading Room [facility] 20:31:00* Test Item Value Reference Range Interpretation Comments Phosphorus (test code = 2777-1) 3.0 mg/dL 2.3-4.7 CESAR (test code = CESAR) Senior Research Fellow ID - BS Lab Interpretation (test code = 39962-8) [facility] 20:31:00* Test Item Value Reference Range Interpretation Comments MAGNESIUM (BEAKER) (test code = 627) 1.2 mg/dL 1.6-2.6 L Senior Research Fellow ID - [id number] 20:31:00* Test Item Value Reference Range Interpretation Comments PHOSPHORUS (BEAKER) (test code = 604) 3.0 mg/dL 2.3-4.7 Senior Research Fellow ID - BSU/S, TRANSPLANT, [id number] 19:51:00Reason for exam:-> pyelonephritisReason for exam:->renal transplantFINAL REPORT EXAM: Transplanted renal ultrasound CLINICAL HISTORY: [...] appears unremarkable. IMPRESSION: 1. Unremarkable transplanted renal ultrasound. Signed: Tabatha Shane MDReport Verified Date/Time: 09/12/2019 19:51:40 R eading Location: [address] Transitional Reading Room Electronically sign ed by: TABATHA SHANE M.D. on 09/12/2019 07:51 PM transplant kidney 2019-09-12 19:51:00Interface, External Ris In - 09/12/2019 7:53 PM CDTFINAL REPORT EXAM: Transplanted renal ultrasound CLINICAL HISTORY: [...] appears unremarkable. IMPRESSION: 1. Unremarkable transplanted renal ultrasound. Signed: Tabatha Shane MDReport Verified Date/Time: 09/12/2019 19:51:40 Reading Location: [address] Transitional [facility] [place] (Asymptomatic ONLY)2019-09-12 18:58:00* Test Item Value Reference Range Interpretation Comments SARS-COV2/RT-PCR (test code = 19741-8) Not Detected Not Detected, N egative SARS-COV-2 PERFORMING LAB (test code = 46871-8) [facility] CESAR (test code = CESAR) Negative results do not prec lude SARS-CoV-2 infection and should not be used as the sole basis for patient management decisions. Negative results must be combined with clinical observations, patient history, and epidemiological information. A false negative result may occur if a specimen is improperly collected, transported or handled. The limit of detection for this assay is 250 copies/mL. This SARS CoV-2 test is a rapid, real-time RT-PCR test intended for the qualitative detection of nucleic acid from SARS-CoV-2 in a nasopharyngeal swab specimen collected from individuals suspected of COVID-19 by their healthcare provider. This test has not been Food and Drug Administration (FDA) cleared or approved and has been authorized by FDA under an Emergency Use Authorization (EUA). This EUA will be effective until the declaration that circumstances exist justifying the authorization of the emergency use of in vitro diagnostic tests for detection and/or diagnosis of COVID-19 is terminated under Section 564(b)(2) of the Act or the EUA is revoked under Section 564(g) of the Act. Fact Sheet for Healthcare Providers:https://www.[employer]/Documents/Xpert%20Xpress%20SARS%20CoV-2/Fact%2 0Sheets/302-3802%81BEWB-AZK-6%20HEALTHCARE%20PROVIDERS%20FACT%20SHEET.pdf Fact Sheet for Healthcare Patients:https://www.[employer]/Documents/Xpert%20Xpress%20SARS%20CoV-2/Fact%20 Sheets/302-3801%59EWTA-VUK-7%20PATIENT%20FACT%20SHEET.pdf Performing Laboratory:[facility] [place] [address] [facility] [place] ([facility])2019-09-12 18:58:00* Test Item Value Reference Range Interpretation Comments SARS-COV2/RT-PCR (test code = 7098431) Not Detected Not Detected, N egative SARS-COV-2 PERFORMING LAB (test code = 0301538) [facility] Negative results do not preclude SARS-CoV-2 infection and should not be used as the sole basis for patient management decisions. Negative results must be combin ed with clinical observations, patient history, and epidemiological information. A false negative result may occur if a specimen is improperly collected, transp orted or handled.The limit of detection for this assay is 250 copies/mL.This [facility] S CoV-2 test is a rapid, real-time RT-PCR test intended for the qualitative dete ction of nucleic acid from SARS-CoV-2 in a nasopharyngeal swab specimen collecte d from individuals suspected of COVID-19 by their healthcare provider.This test has not been Food and Drug Administration (FDA) cleared or approved and has been authorized by FDA under an Emergency Use Authorization (EUA). This EUA will be effective until the declaration that circumstances exist justifying the authoriz ation of the emergency use of in vitro diagnostic tests for detection and/or patricio gnosis of COVID-19 is terminated under Section 564(b)(2) of the Act or the EUA i s revoked under Section 564(g) of the Act.Fact Sheet for Healthcare Providers:ht tps://www.[employer]/Documents/Xpert%20Xpress%20SARS%20CoV-2/Fact%20Sheets/302 3802%99ACKD-TFF-7%20HEALTHCARE%20PROVIDERS%20FACT%20SHEET.pdfFact Sheet for Heal thcare Patients:https://www.[employer]/Documents/Xpert%20Xpress%20SARS%20CoV-2/ Fact%20Sheets/3023801%91TYSF-BXI-4%20PATIENT%20FACT%20SHEET.pdfPerforming Labor atory:[facility], [place] [address]Ozvekkeu [id number] 18:07:00* Test Item Value Reference Range Interpretation Comments Troponin I (test code = 23782-3) <0.01 0-0.03 CESAR (test code = CESAR) Troponin I (TnI) levels must be interpreted in the context of the presenting symptoms and the clinical findings. Elevated TnI levels indicate myocardial damage, but are not specific for ischemic heart disease. Elevated TnI levels are seen in patients with other cardiac conditions (including myocarditis and congestive heart failure), and slight TnI elevations occur in patients with other conditions, including sepsis, renal failure, acidosis, acute neurological disease, and persistent tachyarrhythmia.Senior Research Fellow ID - BS Lab Interpretation (test code = 34082-0) Normal [facility]TROP[facility] [id number] 18:07:00* Test Item Value Reference Range Interpretation Comments TROPONIN I (BEAKER) (test code = 397) < ng/mL 0.00-0.03 Troponin I (TnI) levels must be interpreted in the context of the presenting sym ptoms and the clinical findings. Elevated TnI levels indicate myocardial damage, but are not specific for ischemic heart disease. Elevated TnI levels are seen in patients with other cardiac conditions (including myocarditis and congestive h eart failure), and slight TnI elevations occur in patients with other conditions , including sepsis, renal failure, acidosis, acute neurological disease, and per sistent tachyarrhythmia.Senior Research Fellow ID - BSBASIC METABOLIC [id number] 16:30:00 * Test Item Value Reference Range Interpretation Comments SODIUM (BEAKER) (test code = 381) 136 meq/L 136-145 POTASSIUM (BEAKER) (test code = 379) 4.1 meq/L 3.5-5.1 CHLORIDE (BEAKER) (test code = 382) 109 meq/L 98-107 H CO2 (BEAKER) (test code = 355) 19 meq/L 22-29 L BLOOD UREA NITROGEN (BEAKER) (test code = 354) 31 mg/dL 7-21 H CREATININE (BEAKER) (test code = 358) 2.23 mg/dL 0.57-1.25 H GLUCOSE RANDOM (BEAKER) (test code = 652) 108 mg/dL 70-105 H CALCIUM (BEAKER) (test code = 697) 8.5 mg/dL 8.4-10.2 EGFR (BEAKER) (test code = 1092) 28 mL/min/1.73 sq m ESTIMATED GFR IS NOT ACCURATE CREATININE CLEARANCE IN PREDICTING GLOMERULAR FILTRATION RATE. ESTIMATED GFR IS NOT APPLICABLE FOR DIALYSIS PATIENTS. Senior Research Fellow ID - BSURINALYSIS W/ REFLEX URINE [id number] 16:29:00* Test Item Value Reference Range Interpretation Comments COLOR (BEAKER) (test code = 470) Light Yellow CLARITY (BEAKER) (test code = 469) Clear SPECIFIC GRAVITY UA (BEAKER) (test code = 468) 1.014 1.001-1 .035 PH UA (BEAKER) (test code = 467) 5.0 5.0-8.0 PROTEIN UA (BEAKER) (test code = 464) Negative Negative GLUCOSE UA (BEAKER) (test code = 365) Negative Negative KETONES UA (BEAKER) (test code = 371) Negative Negative BILIRUBIN UA (BEAKER) (test code = 462) Negative Negative BLOOD UA (BEAKER) (test code = 461) Negative Negative NITRITE UA (BEAKER) (test code = 465) Negative Negative LEUKOCYTE ESTERASE UA (BEAKER) (test code = 466) Large Negat radha A UROBILINOGEN UA (BEAKER) (test code = 463) 0.2 mg/dL 0.2-1.0 RBC UA (BEAKER) (test code = 519) 1 /HPF WBC UA (BEAKER) (test code = 520) 14 /HPF BACTERIA (BEAKER) (test code = 517) Many MUCUS (BEAKER) (test code = 1574) Rare SQUAMOUS EPITHELIAL (BEAKER) (test code = 516) 2 /HPF SOURCE(BEAKER) (test code = 2795) Senior Research Fellow ID - [auto]Senior Research Fellow ID - techCBC W/PLT COUNT & AUTO DIFFERENTIAL 2019-09-12 15:57:00* Test Item Value Reference Range Interpretation Comments WHITE BLOOD CELL COUNT (BEAKER) (test code = 775) 11.3 K/ L 3.5- 10.5 H RED BLOOD CELL COUNT (BEAKER) (test code = 761) 3.87 M/ L 3.93-5 .22 L HEMOGLOBIN (BEAKER) (test code = 410) 10.3 GM/DL 11.2-15.7 L HEMATOCRIT (BEAKER) (test code = 411) 34.6 % 34.1-44.9 MEAN CORPUSCULAR VOLUME (BEAKER) (test code = 753) 89.4 fL 79. 4-94.8 MEAN CORPUSCULAR HEMOGLOBIN (BEAKER) (test code = 751) 26.6 pg 25.6-32.2 MEAN CORPUSCULAR HEMOGLOBIN CONC (BEAKER) (test code = 752) 29.8 GM/DL 32.2-35.5 L RED CELL DISTRIBUTION WIDTH (BEAKER) (test code = 412) 13.2 % 11.7-14.4 PLATELET COUNT (BEAKER) (test code = 756) 229 K/CU MM 150-450 MEAN PLATELET VOLUME (BEAKER) (test code = 754) 9.3 fL 9.4-12 .3 L NUCLEATED RED BLOOD CELLS (BEAKER) (test code = 413) 0 /100 WBC 0 -0 NEUTROPHILS RELATIVE PERCENT (BEAKER) (test code = 429) 88 % LYMPHOCYTES RELATIVE PERCENT (BEAKER) (test code = 430) 7 % MONOCYTES RELATIVE PERCENT (BEAKER) (test code = 431) 4 % EOSINOPHILS RELATIVE PERCENT (BEAKER) (test code = 432) 0 % BASOPHILS RELATIVE PERCENT (BEAKER) (test code = 437) 0 % NEUTROPHILS ABSOLUTE COUNT (BEAKER) (test code = 670) 9.87 K/ L 1.56-6.13 H LYMPHOCYTES ABSOLUTE COUNT (BEAKER) (test code = 414) 0.83 K/ L 1.18-3.74 L MONOCYTES ABSOLUTE COUNT (BEAKER) (test code = 415) 0.50 K/ L 0. 24-0.36 H EOSINOPHILS ABSOLUTE COUNT (BEAKER) (test code = 416) 0.01 K/ L 0.04-0.36 L BASOPHILS ABSOLUTE COUNT (BEAKER) (test code = 417) 0.02 K/ L 0. 01-0.08 IMMATURE GRANULOCYTES-RELATIVE PERCENT (BEAKER) (test code = 2801) 0 % 0-1 ECG 12 [id number] 07:39:27Interface, External Ris In - 12/21/2018 7:39 AM CDTVentricular Rate 70 BPMAtrial Rate 70 BPMP-R Interval 130 msQRS Duration 92 msQ-T Interval 400 msQTC Calculation(Bazett) 432 msP [place] 60 degreesR [place] -13 degreesT [place] 31 degreesNormal sinus rhythmNormal ECGWhen compared with ECG of 20-DEC-2018 15:58,No significant change was foundConfirmed by Margarita NICHOLE MICHAEL (150) on 12/21/2018 7:39:22 [facility] (BNP)2018-12-20 18:21:00* Test Item Value Reference Range Interpretation Comments BNP (test code = 02289-1) 46 pg/mL 0-100 Lab Interpretation (test code = 85649-0) Normal [facility] NATRIURETIC FACTOR (BNP)2018-12-20 18:21:00 * Test Item Value Reference Range Interpretation Comments B-TYPE NATRIURETIC PEPTIDE (BEAKER) (test code = 700) 46 pg/mL 0-100 TROPONIN [id number] 18:20:00* Test Item Value Reference Range Interpretation Comments TROPONIN I (BEAKER) (test code = 397) < ng/mL 0.00-0.03 Troponin I (TnI) levels must be interpreted in the context of the presenting sym ptoms and the clinical findings. Elevated TnI levels indicate myocardial damage, but are not specific for ischemic heart disease. Elevated TnI levels are seen i n patients with other cardiac conditions (including myocarditis and congestive h eart failure), and slight TnI elevations occur in patients with other conditions , including sepsis, renal failure, acidosis, acute neurological disease, and per sistent tachyarrhythmia.BASIC METABOLIC [id number] 18:14:00* Test Item Value Reference Range Interpretation Comments SODIUM (BEAKER) (test code = 381) 133 meq/L 136-145 L POTASSIUM (BEAKER) (test code = 379) 4.7 meq/L 3.5-5.1 CHLORIDE (BEAKER) (test code = 382) 102 meq/L 98-107 CO2 (BEAKER) (test code = 355) 24 meq/L 22-29 BLOOD UREA NITROGEN (BEAKER) (test code = 354) 25 mg/dL 7-21 H CREATININE (BEAKER) (test code = 358) 2.28 mg/dL 0.57-1.25 H GLUCOSE RANDOM (BEAKER) (test code = 652) 114 mg/dL 70-105 H CALCIUM (BEAKER) (test code = 697) 10.0 mg/dL 8.4-10.2 EGFR (BEAKER) (test code = 1092) 28 mL/min/1.73 sq m ESTIMATED GFR IS NOT ACCURATE CREATININE CLEARANCE IN PREDICTING GLOMERULAR FILTRATION RATE. ESTIMATED GFR IS NOT APPLICABLE FOR DIALYSIS PATIENTS. [id number] 18:13:00* Test Item Value Reference Range Interpretation Comments MAGNESIUM (BEAKER) (test code = 627) 1.6 mg/dL 1.6-2.6 PT/[id number] 18:04:00* Test Item Value Reference Range Interpretation Comments Protime (test code = 5902-2) 13.0 11.9- 14.2 seconds INR (test code = 6301-6) 1.0 <=5.9 PTT (test code = 65822-2) 27.4 22.5- 36.0 seconds CESAR (test code = CESAR) Effective 09/07/2018: PT Refe rence Range ChangeNew: 11.9- 14.2 Previous: 11.7-14.7 RECOMMENDED COUMADIN/WARFARIN INR THERAPY RANGESSTANDARD DOSE: 2.0-3.0 Includes: PROPHYLAXIS for venous thrombosis, sys temic embolization; TREATMENT for venous thrombosis and/or pulmonary embolus.HIGH RISK: Target INR is 2.5-3.5 for patients wiht mechanical heart valves. Lab Interpretation (test code = 54651-6) [facility]PT/[id number] 18:04:00* Test Item Value Reference Range Interpretation Comments PROTIME (BEAKER) (test code = 759) 13.0 seconds 11.9-14.2 INR (BEAKER) (test code = 370) 1.0 <=5.9 PARTIAL THROMBOPLASTIN TIME (BEAKER) (test code = 760) 27.4 seconds 22.5-36.0 Effective 09/07/2018: PT Reference Range ChangeNew: 11.9-14.2 Previous: 11.7-14. 7RECOMMENDED COUMADIN/WARFARIN INR THERAPY RANGESSTANDARD DOSE: 2.0-3.0 Include s: PROPHYLAXIS for venous thrombosis, systemic embolization; TREATMENT for venou s thrombosis and/or pulmonary embolus.HIGH RISK: Target INR is 2.5-3.5 for patie nts wiht mechanical heart valves.CBC W/PLT COUNT & AUTO [id number] 17:56:00* Test Item Value Reference Range Interpretation Comments WHITE BLOOD CELL COUNT (BEAKER) (test code = 775) 10.7 K/ L 3.5- 10.5 H RED BLOOD CELL COUNT (BEAKER) (test code = 761) 4.16 M/ L 3.93-5 .22 HEMOGLOBIN (BEAKER) (test code = 410) 11.6 GM/DL 11.2-15.7 HEMATOCRIT (BEAKER) (test code = 411) 37.6 % 34.1-44.9 MEAN CORPUSCULAR VOLUME (BEAKER) (test code = 753) 90.4 fL 79. 4-94.8 MEAN CORPUSCULAR HEMOGLOBIN (BEAKER) (test code = 751) 27.9 pg 25.6-32.2 MEAN CORPUSCULAR HEMOGLOBIN CONC (BEAKER) (test code = 752) 30.9 GM/DL 32.2-35.5 L RED CELL DISTRIBUTION WIDTH (BEAKER) (test code = 412) 13.2 % 11.7-14.4 PLATELET COUNT (BEAKER) (test code = 756) 266 K/CU MM 150-450 MEAN PLATELET VOLUME (BEAKER) (test code = 754) 9.7 fL 9.4-12 .3 NUCLEATED RED BLOOD CELLS (BEAKER) (test code = 413) 0 /100 WBC 0 -0 NEUTROPHILS RELATIVE PERCENT (BEAKER) (test code = 429) 88 % LYMPHOCYTES RELATIVE PERCENT (BEAKER) (test code = 430) 8 % MONOCYTES RELATIVE PERCENT (BEAKER) (test code = 431) 4 % EOSINOPHILS RELATIVE PERCENT (BEAKER) (test code = 432) 0 % BASOPHILS RELATIVE PERCENT (BEAKER) (test code = 437) 0 % NEUTROPHILS ABSOLUTE COUNT (BEAKER) (test code = 670) 9.40 K/ L 1.56-6.13 H LYMPHOCYTES ABSOLUTE COUNT (BEAKER) (test code = 414) 0.82 K/ L 1.18-3.74 L MONOCYTES ABSOLUTE COUNT (BEAKER) (test code = 415) 0.41 K/ L 0. 24-0.36 H EOSINOPHILS ABSOLUTE COUNT (BEAKER) (test code = 416) 0.01 K/ L 0.04-0.36 L BASOPHILS ABSOLUTE COUNT (BEAKER) (test code = 417) 0.01 K/ L 0. 01-0.08 IMMATURE GRANULOCYTES-RELATIVE PERCENT (BEAKER) (test code = 2801) 0 % 0-1 RAD, CHEST, 1 VIEW, NON [id number] 17:52:00Reason for exam:->SOBIs the patient ?->UnknownFINAL REPORT History: Shortness of breath. FINDINGS: Compared with May 04, 2016, the heart and mediastinum are stable. Lungs are clear, free of edema, focal consolidation or visible effusions. No pneumothorax. Bones are unremarkable. IMPRESSION: 1. Negative for acute cardiopulmonary disease. Signed: Kurtis Knight Verified Date/Time: 12/20/2018 17:52:16 Reading Location: [address] Radiology Reading Room chest 1 view portable / [id number] 17:52:00Interface, External Ris In - 12/20/2018 5:54 PM CDTFINAL REPORT History: Shortness of breath. FINDINGS: Compared with May 04, 2016, the heart and mediastinum are stable. Lungs are clear, free of edema, focal cons olidation or visible effusions. No pneumothorax. Bones are unremarkable. IMPRESS ION: 1. Negative for acute cardiopulmonary disease. Signed: Kurtis Knighto rt Verified Date/Time: 12/20/2018 17:52:16 Reading Location: [address] Radi ology Reading Room Electronically signed by: KURTIS KNIGHT M.D. on 2018 05:52 PM [facility] CenterCT[facility], WITHOUT [id number] 16:53:00Reason for exam:->DIZZINESSIs the patient ?->UnknownWhat is the patient's sedation requirement?->No SedationFINAL REPORT CT, BRAIN, WITHOUT CONTRAST CLINICAL INDICATION: DIZZINESSdizziness COMPARISON: July 21, 2016 TECHNIQUE: Noncontrast axial CT imaging of the brain and skull. DOSE REDUCTION: Dose modulation, iterative reconstruction, and/or weight-based adjustment of the mA/kV was utilized to reduce the radiation dose to as low as reasonably achievable. FINDINGS:No intracranial hemorrhage, midline shift or mass effect. Midline structures are normally developed. . No hydrocephalus. Orbits are within normal limits. No obstructive paranasal sinus disease. IMPRESSION: No acute intracranial findings If there is persistent clinical concern for intracranial pathology, MR examination is recommended for further characterization. Signed: Venessa Jacob Verified Date/Time: 12/20/2018 16:53:11 Reading Location: [facility] C013V Neuro Reading Room ALYSIS W/ REFLEX URINE [id number] 16:45:00* Test Item Value Reference Range Interpretation Comments COLOR (BEAKER) (test code = 470) Light Yellow CLARITY (BEAKER) (test code = 469) Clear SPECIFIC GRAVITY UA (BEAKER) (test code = 468) 1.007 1.001-1 .035 PH UA (BEAKER) (test code = 467) 6.0 5.0-8.0 PROTEIN UA (BEAKER) (test code = 464) Negative Negative GLUCOSE UA (BEAKER) (test code = 365) Negative Negative KETONES UA (BEAKER) (test code = 371) Negative Negative BILIRUBIN UA (BEAKER) (test code = 462) Negative Negative BLOOD UA (BEAKER) (test code = 461) Negative Negative NITRITE UA (BEAKER) (test code = 465) Negative Negative LEUKOCYTE ESTERASE UA (BEAKER) (test code = 466) Moderate Negat radha A UROBILINOGEN UA (BEAKER) (test code = 463) 0.2 mg/dL 0.2-1.0 RBC UA (BEAKER) (test code = 519) 1 /HPF WBC UA (BEAKER) (test code = 520) 11 /HPF BACTERIA (BEAKER) (test code = 517) Occasional SQUAMOUS EPITHELIAL (BEAKER) (test code = 516) 4 /HPF SOURCE(BEAKER) (test code = 2795) BLOOD [id number] 02:00:00* Test Item Value Reference Range Interpretation Comments CULTURE (BEAKER) (test code = 1095) No growth in 5 days BLOOD [id number] 02:00:00* Test Item Value Reference Range Interpretation Comments CULTURE (BEAKER) (test code = 1095) No growth in 5 days CYCLOSPORINE [id number] 09:06:00* Test Item Value Reference Range Interpretation Comments CYCLOSPORINE BLOOD (BEAKER) (test code = 672) 153 ng/mL <400 BASIC METABOLIC [id number] 07:16:00* Test Item Value Reference Range Interpretation Comments SODIUM (BEAKER) (test code = 381) 137 meq/L 136-145 POTASSIUM (BEAKER) (test code = 379) 4.2 meq/L 3.5-5.1 CHLORIDE (BEAKER) (test code = 382) 109 meq/L 98-107 H CO2 (BEAKER) (test code = 355) 22 meq/L 22-29 BLOOD UREA NITROGEN (BEAKER) (test code = 354) 29 mg/dL 7-21 H CREATININE (BEAKER) (test code = 358) 1.99 mg/dL 0.57-1.25 H GLUCOSE RANDOM (BEAKER) (test code = 652) 100 mg/dL 70-105 CALCIUM (BEAKER) (test code = 697) 9.0 mg/dL 8.4-10.2 EGFR (BEAKER) (test code = 1092) 33 mL/min/1.73 sq m ESTIMATED GFR IS NOT ACCURATE CREATININE CLEARANCE IN PREDICTING GLOMERULAR FILTRATION RATE. ESTIMATED GFR IS NOT APPLICABLE FOR DIALYSIS PATIENTS. CBC W/PLT COUNT & AUTO [id number] 05:52:00* Test Item Value Reference Range Interpretation Comments WHITE BLOOD CELL COUNT (BEAKER) (test code = 775) 10.1 K/ L 3.5- 10.5 RED BLOOD CELL COUNT (BEAKER) (test code = 761) 3.45 M/ L 3.93-5 .22 L HEMOGLOBIN (BEAKER) (test code = 410) 9.7 GM/DL 11.2-15.7 L HEMATOCRIT (BEAKER) (test code = 411) 31.4 % 34.1-44.9 L MEAN CORPUSCULAR VOLUME (BEAKER) (test code = 753) 91.0 fL 79. 4-94.8 MEAN CORPUSCULAR HEMOGLOBIN (BEAKER) (test code = 751) 28.1 pg 25.6-32.2 MEAN CORPUSCULAR HEMOGLOBIN CONC (BEAKER) (test code = 752) 30.9 GM/DL 32.2-35.5 L RED CELL DISTRIBUTION WIDTH (BEAKER) (test code = 412) 13.1 % 11.7-14.4 PLATELET COUNT (BEAKER) (test code = 756) 187 K/CU MM 150-450 MEAN PLATELET VOLUME (BEAKER) (test code = 754) 8.7 fL 9.4-12 .3 L NUCLEATED RED BLOOD CELLS (BEAKER) (test code = 413) 0 /100 WBC 0 -0 NEUTROPHILS RELATIVE PERCENT (BEAKER) (test code = 429) 74 % LYMPHOCYTES RELATIVE PERCENT (BEAKER) (test code = 430) 16 % MONOCYTES RELATIVE PERCENT (BEAKER) (test code = 431) 10 % EOSINOPHILS RELATIVE PERCENT (BEAKER) (test code = 432) 0 % BASOPHILS RELATIVE PERCENT (BEAKER) (test code = 437) 0 % NEUTROPHILS ABSOLUTE COUNT (BEAKER) (test code = 670) 7.47 K/ L 1.56-6.13 H LYMPHOCYTES ABSOLUTE COUNT (BEAKER) (test code = 414) 1.58 K/ L 1.18-3.74 MONOCYTES ABSOLUTE COUNT (BEAKER) (test code = 415) 1.01 K/ L 0. 24-0.36 H EOSINOPHILS ABSOLUTE COUNT (BEAKER) (test code = 416) 0.03 K/ L 0.04-0.36 L BASOPHILS ABSOLUTE COUNT (BEAKER) (test code = 417) 0.01 K/ L 0. 01-0.08 IMMATURE GRANULOCYTES-RELATIVE PERCENT (BEAKER) (test code = 2801) 0 % 0-1 U/S, TRANSPLANT, [id number] 04:13:00Reason for exam:->Acute renal failure, transplant pyelonephritisFINAL REPORT U/S, TRANSPLANT, KIDNEY INDICATION: Acute renal failure, transplant pyelonephritis COMPARISON: None TECHNIQUE: Real-time ultrasound examination of the transplanted kidney. Color and spectral Doppler imaging also obtained FINDINGS:Size: 10.1 x 5.4 x 5.0 cm. Prior measurements were 10.3 x 6.2 x 5.0. Echogenicity: Within normal limits.Hydronephrosis: None.Perinephric fluid: None. Vascular:PSV Venous: Iliac vein: 22.9 cm/s above the anastomosis and 17.1 cm/s below the anastomosis Anastomosis: 22.7 cm/s Main renal vein: 23.9 cm/s PSV Arterial: Iliac artery: 81.9 cm/s above the anastomosis 66.6 cm/s below the anastomosis Anastomosis: 40.7 cm/s Main renal artery: 44.9 cm/s Resistive indices: Upper: 0.66 Middle: 0.63 Lower: 0.68 Additional findings: The bladder is unremarkable. IMPRESSION:Right iliac fossa renal transplant without evidence of complication. Signed: Diane Gupta Verified Date/Time: 10/30/2018 04:13:02 OSPORINE [id number] 11:29:00* Test Item Value Reference Range Interpretation Comments CYCLOSPORINE BLOOD (BEAKER) (test code = 672) 222 ng/mL <400 BASIC METABOLIC [id number] 06:40:00* Test Item Value Reference Range Interpretation Comments SODIUM (BEAKER) (test code = 381) 137 meq/L 136-145 POTASSIUM (BEAKER) (test code = 379) 4.0 meq/L 3.5-5.1 CHLORIDE (BEAKER) (test code = 382) 109 meq/L 98-107 H CO2 (BEAKER) (test code = 355) 21 meq/L 22-29 L BLOOD UREA NITROGEN (BEAKER) (test code = 354) 33 mg/dL 7-21 H CREATININE (BEAKER) (test code = 358) 2.36 mg/dL 0.57-1.25 H GLUCOSE RANDOM (BEAKER) (test code = 652) 108 mg/dL 70-105 H CALCIUM (BEAKER) (test code = 697) 8.8 mg/dL 8.4-10.2 EGFR (BEAKER) (test code = 1092) 27 mL/min/1.73 sq m ESTIMATED GFR IS NOT ACCURATE CREATININE CLEARANCE IN PREDICTING GLOMERULAR FILTRATION RATE. ESTIMATED GFR IS NOT APPLICABLE FOR DIALYSIS PATIENTS. CBC W/PLT COUNT & AUTO [id number] 05:45:00* Test Item Value Reference Range Interpretation Comments WHITE BLOOD CELL COUNT (BEAKER) (test code = 775) 12.3 K/ L 3.5- 10.5 H RED BLOOD CELL COUNT (BEAKER) (test code = 761) 3.32 M/ L 3.93-5 .22 L HEMOGLOBIN (BEAKER) (test code = 410) 9.5 GM/DL 11.2-15.7 L HEMATOCRIT (BEAKER) (test code = 411) 30.5 % 34.1-44.9 L MEAN CORPUSCULAR VOLUME (BEAKER) (test code = 753) 91.9 fL 79. 4-94.8 MEAN CORPUSCULAR HEMOGLOBIN (BEAKER) (test code = 751) 28.6 pg 25.6-32.2 MEAN CORPUSCULAR HEMOGLOBIN CONC (BEAKER) (test code = 752) 31.1 GM/DL 32.2-35.5 L RED CELL DISTRIBUTION WIDTH (BEAKER) (test code = 412) 13.1 % 11.7-14.4 PLATELET COUNT (BEAKER) (test code = 756) 195 K/CU MM 150-450 MEAN PLATELET VOLUME (BEAKER) (test code = 754) 8.9 fL 9.4-12 .3 L NUCLEATED RED BLOOD CELLS (BEAKER) (test code = 413) 0 /100 WBC 0 -0 NEUTROPHILS RELATIVE PERCENT (BEAKER) (test code = 429) 80 % LYMPHOCYTES RELATIVE PERCENT (BEAKER) (test code = 430) 12 % MONOCYTES RELATIVE PERCENT (BEAKER) (test code = 431) 8 % EOSINOPHILS RELATIVE PERCENT (BEAKER) (test code = 432) 0 % BASOPHILS RELATIVE PERCENT (BEAKER) (test code = 437) 0 % NEUTROPHILS ABSOLUTE COUNT (BEAKER) (test code = 670) 9.81 K/ L 1.56-6.13 H LYMPHOCYTES ABSOLUTE COUNT (BEAKER) (test code = 414) 1.44 K/ L 1.18-3.74 MONOCYTES ABSOLUTE COUNT (BEAKER) (test code = 415) 0.98 K/ L 0. 24-0.36 H EOSINOPHILS ABSOLUTE COUNT (BEAKER) (test code = 416) 0.02 K/ L 0.04-0.36 L BASOPHILS ABSOLUTE COUNT (BEAKER) (test code = 417) 0.02 K/ L 0. 01-0.08 IMMATURE GRANULOCYTES-RELATIVE PERCENT (BEAKER) (test code = 2801) 0 % 0-1 BASIC METABOLIC [id number] 22:56:00* Test Item Value Reference Range Interpretation Comments SODIUM (BEAKER) (test code = 381) 136 meq/L 136-145 POTASSIUM (BEAKER) (test code = 379) 5.1 meq/L 3.5-5.1 CHLORIDE (BEAKER) (test code = 382) 107 meq/L 98-107 CO2 (BEAKER) (test code = 355) 21 meq/L 22-29 L BLOOD UREA NITROGEN (BEAKER) (test code = 354) 37 mg/dL 7-21 H CREATININE (BEAKER) (test code = 358) 2.74 mg/dL 0.57-1.25 H GLUCOSE RANDOM (BEAKER) (test code = 652) 95 mg/dL 70-105 CALCIUM (BEAKER) (test code = 697) 9.5 mg/dL 8.4-10.2 EGFR (BEAKER) (test code = 1092) 23 mL/min/1.73 sq m ESTIMATED GFR IS NOT ACCURATE CREATININE CLEARANCE IN PREDICTING GLOMERULAR FILTRATION RATE. ESTIMATED GFR IS NOT APPLICABLE FOR DIALYSIS PATIENTS. LACTIC ACID, [id number] 22:47:00* Test Item Value Reference Range Interpretation Comments LACTATE BLOOD VENOUS (2) (BEAKER) (test code = 2872) 0.5 mmol/L 0 .5-2.2 CBC W/PLT COUNT & AUTO [id number] 22:35:00* Test Item Value Reference Range Interpretation Comments WHITE BLOOD CELL COUNT (BEAKER) (test code = 775) 13.1 K/ L 3.5- 10.5 H RED BLOOD CELL COUNT (BEAKER) (test code = 761) 3.68 M/ L 3.93-5 .22 L HEMOGLOBIN (BEAKER) (test code = 410) 10.4 GM/DL 11.2-15.7 L HEMATOCRIT (BEAKER) (test code = 411) 33.9 % 34.1-44.9 L MEAN CORPUSCULAR VOLUME (BEAKER) (test code = 753) 92.1 fL 79. 4-94.8 MEAN CORPUSCULAR HEMOGLOBIN (BEAKER) (test code = 751) 28.3 pg 25.6-32.2 MEAN CORPUSCULAR HEMOGLOBIN CONC (BEAKER) (test code = 752) 30.7 GM/DL 32.2-35.5 L RED CELL DISTRIBUTION WIDTH (BEAKER) (test code = 412) 13.0 % 11.7-14.4 PLATELET COUNT (BEAKER) (test code = 756) 229 K/CU MM 150-450 MEAN PLATELET VOLUME (BEAKER) (test code = 754) 9.2 fL 9.4-12 .3 L NUCLEATED RED BLOOD CELLS (BEAKER) (test code = 413) 0 /100 WBC 0 -0 NEUTROPHILS RELATIVE PERCENT (BEAKER) (test code = 429) 82 % LYMPHOCYTES RELATIVE PERCENT (BEAKER) (test code = 430) 11 % MONOCYTES RELATIVE PERCENT (BEAKER) (test code = 431) 7 % EOSINOPHILS RELATIVE PERCENT (BEAKER) (test code = 432) 0 % BASOPHILS RELATIVE PERCENT (BEAKER) (test code = 437) 0 % NEUTROPHILS ABSOLUTE COUNT (BEAKER) (test code = 670) 10.72 K/ L 1.56-6.13 H LYMPHOCYTES ABSOLUTE COUNT (BEAKER) (test code = 414) 1.40 K/ L 1.18-3.74 MONOCYTES ABSOLUTE COUNT (BEAKER) (test code = 415) 0.85 K/ L 0. 24-0.36 H EOSINOPHILS ABSOLUTE COUNT (BEAKER) (test code = 416) 0.01 K/ L 0.04-0.36 L BASOPHILS ABSOLUTE COUNT (BEAKER) (test code = 417) 0.02 K/ L 0. 01-0.08 IMMATURE GRANULOCYTES-RELATIVE PERCENT (BEAKER) (test code = 2801) 0 % 0-1 URINALYSIS W/ REFLEX URINE [id number] 18:47:00* Test Item Value Reference Range Interpretation Comments COLOR (BEAKER) (test code = 470) Yellow CLARITY (BEAKER) (test code = 469) Hazy SPECIFIC GRAVITY UA (BEAKER) (test code = 468) 1.015 1.001-1 .035 PH UA (BEAKER) (test code = 467) 5.5 5.0-8.0 PROTEIN UA (BEAKER) (test code = 464) Negative Negative GLUCOSE UA (BEAKER) (test code = 365) Negative Negative KETONES UA (BEAKER) (test code = 371) Negative Negative BILIRUBIN UA (BEAKER) (test code = 462) Negative Negative BLOOD UA (BEAKER) (test code = 461) Negative Negative NITRITE UA (BEAKER) (test code = 465) Negative Negative LEUKOCYTE ESTERASE UA (BEAKER) (test code = 466) Large Negat radha A UROBILINOGEN UA (BEAKER) (test code = 463) 0.2 mg/dL 0.2-1.0 RBC UA (BEAKER) (test code = 519) 0 /HPF WBC UA (BEAKER) (test code = 520) 8 /HPF BACTERIA (BEAKER) (test code = 517) Moderate MUCUS (BEAKER) (test code = 1574) Rare SQUAMOUS EPITHELIAL (BEAKER) (test code = 516) 7 /HPF SOURCE(BEAKER) (test code = 4410) BLOOD [id number] 05:00:00* Test Item Value Reference Range Interpretation Comments CULTURE (BEAKER) (test code = 1095) No growth in 5 days CYCLOSPORINE [id number] 12:47:00* Test Item Value Reference Range Interpretation Comments CYCLOSPORINE BLOOD (BEAKER) (test code = 672) 109 ng/mL <400 Daily troughURINE [id number] 09:18:00* Test Item Value Reference Range Interpretation Comments CULTURE (BEAKER) (test code = 1095) See comment 20-29,000 col/mL gram negative rods of two types.50-59,000 col/mL skin hansa BASIC METABOLIC [id number] 08:39:00* Test Item Value Reference Range Interpretation Comments SODIUM (BEAKER) (test code = 381) 137 meq/L 136-145 POTASSIUM (BEAKER) (test code = 379) 4.2 meq/L 3.5-5.1 CHLORIDE (BEAKER) (test code = 382) 109 meq/L 98-107 H CO2 (BEAKER) (test code = 355) 19 meq/L 22-29 L BLOOD UREA NITROGEN (BEAKER) (test code = 354) 30 mg/dL 7-21 H CREATININE (BEAKER) (test code = 358) 2.25 mg/dL 0.57-1.25 H GLUCOSE RANDOM (BEAKER) (test code = 652) 84 mg/dL 70-105 CALCIUM (BEAKER) (test code = 697) 9.1 mg/dL 8.4-10.2 EGFR (BEAKER) (test code = 1092) 28 mL/min/1.73 sq m ESTIMATED GFR IS NOT ACCURATE CREATININE CLEARANCE IN PREDICTING GLOMERULAR FILTRATION RATE. ESTIMATED GFR IS NOT APPLICABLE FOR DIALYSIS PATIENTS. CBC W/PLT COUNT & AUTO [id number] 07:16:00* Test Item Value Reference Range Interpretation Comments WHITE BLOOD CELL COUNT (BEAKER) (test code = 775) 13.0 K/ L 3.5- 10.5 H RED BLOOD CELL COUNT (BEAKER) (test code = 761) 3.37 M/ L 3.93-5 .22 L HEMOGLOBIN (BEAKER) (test code = 410) 9.2 GM/DL 11.2-15.7 L HEMATOCRIT (BEAKER) (test code = 411) 31.0 % 34.1-44.9 L MEAN CORPUSCULAR VOLUME (BEAKER) (test code = 753) 92.0 fL 79. 4-94.8 MEAN CORPUSCULAR HEMOGLOBIN (BEAKER) (test code = 751) 27.3 pg 25.6-32.2 MEAN CORPUSCULAR HEMOGLOBIN CONC (BEAKER) (test code = 752) 29.7 GM/DL 32.2-35.5 L RED CELL DISTRIBUTION WIDTH (BEAKER) (test code = 412) 13.1 % 11.7-14.4 PLATELET COUNT (BEAKER) (test code = 756) 198 K/CU MM 150-450 MEAN PLATELET VOLUME (BEAKER) (test code = 754) 9.4 fL 9.4-12 .3 NUCLEATED RED BLOOD CELLS (BEAKER) (test code = 413) 0 /100 WBC 0 -0 NEUTROPHILS RELATIVE PERCENT (BEAKER) (test code = 429) 76 % LYMPHOCYTES RELATIVE PERCENT (BEAKER) (test code = 430) 14 % MONOCYTES RELATIVE PERCENT (BEAKER) (test code = 431) 10 % EOSINOPHILS RELATIVE PERCENT (BEAKER) (test code = 432) 0 % BASOPHILS RELATIVE PERCENT (BEAKER) (test code = 437) 0 % NEUTROPHILS ABSOLUTE COUNT (BEAKER) (test code = 670) 9.88 K/ L 1.56-6.13 H LYMPHOCYTES ABSOLUTE COUNT (BEAKER) (test code = 414) 1.81 K/ L 1.18-3.74 MONOCYTES ABSOLUTE COUNT (BEAKER) (test code = 415) 1.26 K/ L 0. 24-0.36 H EOSINOPHILS ABSOLUTE COUNT (BEAKER) (test code = 416) 0.01 K/ L 0.04-0.36 L BASOPHILS ABSOLUTE COUNT (BEAKER) (test code = 417) 0.02 K/ L 0. 01-0.08 IMMATURE GRANULOCYTES-RELATIVE PERCENT (BEAKER) (test code = 2801) 1 % 0-1 PH, [id number] 19:16:00* Test Item Value Reference Range Interpretation Comments PH VENOUS (BEAKER) (test code = 701) 7.40 7.32-7.42 BASIC METABOLIC [id number] 07:25:00* Test Item Value Reference Range Interpretation Comments SODIUM (BEAKER) (test code = 381) 139 meq/L 136-145 POTASSIUM (BEAKER) (test code = 379) 4.3 meq/L 3.5-5.1 CHLORIDE (BEAKER) (test code = 382) 110 meq/L 98-107 H CO2 (BEAKER) (test code = 355) 20 meq/L 22-29 L BLOOD UREA NITROGEN (BEAKER) (test code = 354) 31 mg/dL 7-21 H CREATININE (BEAKER) (test code = 358) 2.29 mg/dL 0.57-1.25 H GLUCOSE RANDOM (BEAKER) (test code = 652) 92 mg/dL 70-105 CALCIUM (BEAKER) (test code = 697) 9.6 mg/dL 8.4-10.2 EGFR (BEAKER) (test code = 1092) 28 mL/min/1.73 sq m ESTIMATED GFR IS NOT ACCURATE CREATININE CLEARANCE IN PREDICTING GLOMERULAR FILTRATION RATE. ESTIMATED GFR IS NOT APPLICABLE FOR DIALYSIS PATIENTS. CBC W/PLT COUNT & AUTO [id number] 07:07:00* Test Item Value Reference Range Interpretation Comments WHITE BLOOD CELL COUNT (BEAKER) (test code = 775) 12.1 K/ L 3.5- 10.5 H RED BLOOD CELL COUNT (BEAKER) (test code = 761) 3.77 M/ L 3.93-5 .22 L HEMOGLOBIN (BEAKER) (test code = 410) 10.3 GM/DL 11.2-15.7 L HEMATOCRIT (BEAKER) (test code = 411) 33.9 % 34.1-44.9 L MEAN CORPUSCULAR VOLUME (BEAKER) (test code = 753) 89.9 fL 79. 4-94.8 MEAN CORPUSCULAR HEMOGLOBIN (BEAKER) (test code = 751) 27.3 pg 25.6-32.2 MEAN CORPUSCULAR HEMOGLOBIN CONC (BEAKER) (test code = 752) 30.4 GM/DL 32.2-35.5 L RED CELL DISTRIBUTION WIDTH (BEAKER) (test code = 412) 13.1 % 11.7-14.4 PLATELET COUNT (BEAKER) (test code = 756) 220 K/CU MM 150-450 MEAN PLATELET VOLUME (BEAKER) (test code = 754) 9.5 fL 9.4-12 .3 NUCLEATED RED BLOOD CELLS (BEAKER) (test code = 413) 0 /100 WBC 0 -0 NEUTROPHILS RELATIVE PERCENT (BEAKER) (test code = 429) 77 % LYMPHOCYTES RELATIVE PERCENT (BEAKER) (test code = 430) 14 % MONOCYTES RELATIVE PERCENT (BEAKER) (test code = 431) 8 % EOSINOPHILS RELATIVE PERCENT (BEAKER) (test code = 432) 0 % BASOPHILS RELATIVE PERCENT (BEAKER) (test code = 437) 0 % NEUTROPHILS ABSOLUTE COUNT (BEAKER) (test code = 670) 9.32 K/ L 1.56-6.13 H LYMPHOCYTES ABSOLUTE COUNT (BEAKER) (test code = 414) 1.75 K/ L 1.18-3.74 MONOCYTES ABSOLUTE COUNT (BEAKER) (test code = 415) 0.97 K/ L 0. 24-0.36 H EOSINOPHILS ABSOLUTE COUNT (BEAKER) (test code = 416) 0.02 K/ L 0.04-0.36 L BASOPHILS ABSOLUTE COUNT (BEAKER) (test code = 417) 0.02 K/ L 0. 01-0.08 IMMATURE GRANULOCYTES-RELATIVE PERCENT (BEAKER) (test code = 2801) 0 % 0-1 BASIC METABOLIC [id number] 08:37:00* Test Item Value Reference Range Interpretation Comments SODIUM (BEAKER) (test code = 381) 139 meq/L 136-145 POTASSIUM (BEAKER) (test code = 379) 3.9 meq/L 3.5-5.1 CHLORIDE (BEAKER) (test code = 382) 110 meq/L 98-107 H CO2 (BEAKER) (test code = 355) 19 meq/L 22-29 L BLOOD UREA NITROGEN (BEAKER) (test code = 354) 34 mg/dL 7-21 H CREATININE (BEAKER) (test code = 358) 2.22 mg/dL 0.57-1.25 H GLUCOSE RANDOM (BEAKER) (test code = 652) 88 mg/dL 70-105 CALCIUM (BEAKER) (test code = 697) 9.3 mg/dL 8.4-10.2 EGFR (BEAKER) (test code = 1092) 29 mL/min/1.73 sq m ESTIMATED GFR IS NOT ACCURATE CREATININE CLEARANCE IN PREDICTING GLOMERULAR FILTRATION RATE. ESTIMATED GFR IS NOT APPLICABLE FOR DIALYSIS PATIENTS. CBC W/PLT COUNT & AUTO [id number] 07:21:00* Test Item Value Reference Range Interpretation Comments WHITE BLOOD CELL COUNT (BEAKER) (test code = 775) 12.9 K/ L 3.5- 10.5 H RED BLOOD CELL COUNT (BEAKER) (test code = 761) 3.57 M/ L 3.93-5 .22 L HEMOGLOBIN (BEAKER) (test code = 410) 10.0 GM/DL 11.2-15.7 L HEMATOCRIT (BEAKER) (test code = 411) 32.5 % 34.1-44.9 L MEAN CORPUSCULAR VOLUME (BEAKER) (test code = 753) 91.0 fL 79. 4-94.8 MEAN CORPUSCULAR HEMOGLOBIN (BEAKER) (test code = 751) 28.0 pg 25.6-32.2 MEAN CORPUSCULAR HEMOGLOBIN CONC (BEAKER) (test code = 752) 30.8 GM/DL 32.2-35.5 L RED CELL DISTRIBUTION WIDTH (BEAKER) (test code = 412) 13.2 % 11.7-14.4 PLATELET COUNT (BEAKER) (test code = 756) 207 K/CU MM 150-450 MEAN PLATELET VOLUME (BEAKER) (test code = 754) 9.4 fL 9.4-12 .3 NUCLEATED RED BLOOD CELLS (BEAKER) (test code = 413) 0 /100 WBC 0 -0 NEUTROPHILS RELATIVE PERCENT (BEAKER) (test code = 429) 76 % LYMPHOCYTES RELATIVE PERCENT (BEAKER) (test code = 430) 14 % MONOCYTES RELATIVE PERCENT (BEAKER) (test code = 431) 9 % EOSINOPHILS RELATIVE PERCENT (BEAKER) (test code = 432) 0 % BASOPHILS RELATIVE PERCENT (BEAKER) (test code = 437) 0 % NEUTROPHILS ABSOLUTE COUNT (BEAKER) (test code = 670) 9.75 K/ L 1.56-6.13 H LYMPHOCYTES ABSOLUTE COUNT (BEAKER) (test code = 414) 1.82 K/ L 1.18-3.74 MONOCYTES ABSOLUTE COUNT (BEAKER) (test code = 415) 1.15 K/ L 0. 24-0.36 H EOSINOPHILS ABSOLUTE COUNT (BEAKER) (test code = 416) 0.02 K/ L 0.04-0.36 L BASOPHILS ABSOLUTE COUNT (BEAKER) (test code = 417) 0.04 K/ L 0. 01-0.08 IMMATURE GRANULOCYTES-RELATIVE PERCENT (BEAKER) (test code = 2801) 1 % 0-1 CT, [id number] 20:18:00Reason for exam:->ABDOMINAL PAIN, RLQReason for exam:->transplant kidney RLQIs the patient ?->UnknownWhat is the patient's sedation requirement?->No SedationFINAL REPORT CT of the abdomen and female pelvis. 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 Technique: Nonionic intravenous contrast was not administered. Oral contrast was administered. 261 images were submitted for interpretation. Imaging was obtained from the diaphragm to the ischium.This exam was performed according to our departmental dose-optimization program which includes automated exposure control, adjustment of the mA and/or kV according to patient size and/or use of iterative reconstruction technique. Abdomen: Inferior chest: No focal lesionsLiver: No focal lesions however this study is limited without the use of iodinated contrast materialSpleen: UnremarkablePancreas: NegativeBiliary tree and gallbladder: No evidence of intra or extrahepatic biliary duct dilatation the gallbladder is contractedAdrenal glands: Negat iveKidneys: The [place] kidneys are atrophic. There is a right lower quadrant tr ansplant kidney without evidence of obstruction. Interval development of the vas cular calcification is suspected on image 73.Vasculature: UnremarkableLymph nod es: No significant retroperitoneal or mesenteric lymph nodesBowel/Appendix: Th ere is no evidence of obstruction. There is no evidence of free air.Fluid: Nega tiveBones: Degenerative change Pelvis: Bladder: Not distendedRectum : NegativeU terus: UnremarkableAdnexa: Not enlargedNodes: NegativeFluid: NegativeVascularity : Unremarkable Impression:Status post right lower quadrant transplant kidney. T he [place] kidneys are atrophic.Unremarkable noncontrast CT scan of the abdomen a nd female pelvis. Signed: Eliane Albert Verified Date/Time: 03/09/2018 2 0:18:27 Reading Location: [facility] [id number] Consult Reading Room ALYSIS W/ MICROSCOPIC 2018-03-09 16:36:00* Test Item Value Reference Range Interpretation Comments COLOR (BEAKER) (test code = 470) Yellow CLARITY (BEAKER) (test code = 469) Hazy SPECIFIC GRAVITY UA (BEAKER) (test code = 468) 1.015 1.001-1 .035 PH UA (BEAKER) (test code = 467) 5.5 5.0-8.0 PROTEIN UA (BEAKER) (test code = 464) Negative Negative GLUCOSE UA (BEAKER) (test code = 365) Negative Negative KETONES UA (BEAKER) (test code = 371) Negative Negative BILIRUBIN UA (BEAKER) (test code = 462) Negative Negative BLOOD UA (BEAKER) (test code = 461) Trace Negative A NITRITE UA (BEAKER) (test code = 465) Negative Negative LEUKOCYTE ESTERASE UA (BEAKER) (test code = 466) Moderate Negat radha A UROBILINOGEN UA (BEAKER) (test code = 463) 0.2 mg/dL 0.2-1.0 RBC UA (BEAKER) (test code = 519) < /HPF WBC UA (BEAKER) (test code = 520) 5 /HPF BACTERIA (BEAKER) (test code = 517) Few MUCUS (BEAKER) (test code = 1574) Rare SQUAMOUS EPITHELIAL (BEAKER) (test code = 516) 6 /HPF SOURCE(BEAKER) (test code = 2065) Urine, Voided BASIC METABOLIC [id number] 16:06:00* Test Item Value Reference Range Interpretation Comments SODIUM (BEAKER) (test code = 381) 138 meq/L 136-145 POTASSIUM (BEAKER) (test code = 379) 4.7 meq/L 3.5-5.1 CHLORIDE (BEAKER) (test code = 382) 108 meq/L 98-107 H CO2 (BEAKER) (test code = 355) 21 meq/L 22-29 L BLOOD UREA NITROGEN (BEAKER) (test code = 354) 37 mg/dL 7-21 H CREATININE (BEAKER) (test code = 358) 2.54 mg/dL 0.57-1.25 H GLUCOSE RANDOM (BEAKER) (test code = 652) 122 mg/dL 70-105 H CALCIUM (BEAKER) (test code = 697) 10.0 mg/dL 8.4-10.2 EGFR (BEAKER) (test code = 1092) 25 mL/min/1.73 sq m ESTIMATED GFR IS NOT ACCURATE CREATININE CLEARANCE IN PREDICTING GLOMERULAR FILTRATION RATE. ESTIMATED GFR IS NOT APPLICABLE FOR DIALYSIS PATIENTS. CBC W/PLT COUNT & AUTO [id number] 15:51:00* Test Item Value Reference Range Interpretation Comments WHITE BLOOD CELL COUNT (BEAKER) (test code = 775) 11.3 K/ L 3.5- 10.5 H RED BLOOD CELL COUNT (BEAKER) (test code = 761) 3.88 M/ L 3.93-5 .22 L HEMOGLOBIN (BEAKER) (test code = 410) 11.0 GM/DL 11.2-15.7 L HEMATOCRIT (BEAKER) (test code = 411) 35.5 % 34.1-44.9 MEAN CORPUSCULAR VOLUME (BEAKER) (test code = 753) 91.5 fL 79. 4-94.8 MEAN CORPUSCULAR HEMOGLOBIN (BEAKER) (test code = 751) 28.4 pg 25.6-32.2 MEAN CORPUSCULAR HEMOGLOBIN CONC (BEAKER) (test code = 752) 31.0 GM/DL 32.2-35.5 L RED CELL DISTRIBUTION WIDTH (BEAKER) (test code = 412) 13.1 % 11.7-14.4 PLATELET COUNT (BEAKER) (test code = 756) 227 K/CU MM 150-450 MEAN PLATELET VOLUME (BEAKER) (test code = 754) 9.1 fL 9.4-12 .3 L NUCLEATED RED BLOOD CELLS (BEAKER) (test code = 413) 0 /100 WBC 0 -0 NEUTROPHILS RELATIVE PERCENT (BEAKER) (test code = 429) 85 % LYMPHOCYTES RELATIVE PERCENT (BEAKER) (test code = 430) 10 % MONOCYTES RELATIVE PERCENT (BEAKER) (test code = 431) 5 % EOSINOPHILS RELATIVE PERCENT (BEAKER) (test code = 432) 0 % BASOPHILS RELATIVE PERCENT (BEAKER) (test code = 437) 0 % NEUTROPHILS ABSOLUTE COUNT (BEAKER) (test code = 670) 9.58 K/ L 1.56-6.13 H LYMPHOCYTES ABSOLUTE COUNT (BEAKER) (test code = 414) 1.10 K/ L 1.18-3.74 L MONOCYTES ABSOLUTE COUNT (BEAKER) (test code = 415) 0.54 K/ L 0. 24-0.36 H EOSINOPHILS ABSOLUTE COUNT (BEAKER) (test code = 416) 0.01 K/ L 0.04-0.36 L BASOPHILS ABSOLUTE COUNT (BEAKER) (test code = 417) 0.03 K/ L 0. 01-0.08 IMMATURE GRANULOCYTES-RELATIVE PERCENT (BEAKER) (test code = 2801) 1 % 0-1 URINALYSIS W/ REFLEX URINE [id number] 19:16:00* Test Item Value Reference Range Interpretation Comments COLOR (BEAKER) (test code = 470) Yellow CLARITY (BEAKER) (test code = 469) Clear SPECIFIC GRAVITY UA (BEAKER) (test code = 468) 1.016 1.001-1 .035 PH UA (BEAKER) (test code = 467) 5.5 5.0-8.0 PROTEIN UA (BEAKER) (test code = 464) Negative Negative GLUCOSE UA (BEAKER) (test code = 365) Negative Negative KETONES UA (BEAKER) (test code = 371) Negative Negative BILIRUBIN UA (BEAKER) (test code = 462) Negative Negative BLOOD UA (BEAKER) (test code = 461) Negative Negative NITRITE UA (BEAKER) (test code = 465) Negative Negative LEUKOCYTE ESTERASE UA (BEAKER) (test code = 466) Trace Negat radha A UROBILINOGEN UA (BEAKER) (test code = 463) 0.2 mg/dL 0.2-1.0 RBC UA (BEAKER) (test code = 519) < /HPF WBC UA (BEAKER) (test code = 520) 1 /HPF BACTERIA (BEAKER) (test code = 517) Rare MUCUS (BEAKER) (test code = 1574) Rare SQUAMOUS EPITHELIAL (BEAKER) (test code = 516) 4 /HPF SOURCE(BEAKER) (test code = 3451) BASIC METABOLIC [id number] 18:49:00* Test Item Value Reference Range Interpretation Comments SODIUM (BEAKER) (test code = 381) 136 meq/L 136-145 POTASSIUM (BEAKER) (test code = 379) 4.9 meq/L 3.5-5.1 CHLORIDE (BEAKER) (test code = 382) 107 meq/L 98-107 CO2 (BEAKER) (test code = 355) 19 meq/L 22-29 L BLOOD UREA NITROGEN (BEAKER) (test code = 354) 43 mg/dL 7-21 H CREATININE (BEAKER) (test code = 358) 2.82 mg/dL 0.57-1.25 H GLUCOSE RANDOM (BEAKER) (test code = 652) 121 mg/dL 70-105 H CALCIUM (BEAKER) (test code = 697) 9.6 mg/dL 8.4-10.2 EGFR (BEAKER) (test code = 1092) 22 mL/min/1.73 sq m ESTIMATED GFR IS NOT ACCURATE CREATININE CLEARANCE IN PREDICTING GLOMERULAR FILTRATION RATE. ESTIMATED GFR IS NOT APPLICABLE FOR DIALYSIS PATIENTS. CBC W/PLT COUNT & AUTO [id number] 18:42:00* Test Item Value Reference Range Interpretation Comments WHITE BLOOD CELL COUNT (BEAKER) (test code = 775) 14.6 K/ L 3.5- 10.5 H RED BLOOD CELL COUNT (BEAKER) (test code = 761) 3.79 M/ L 3.93-5 .22 L HEMOGLOBIN (BEAKER) (test code = 410) 10.5 GM/DL 11.2-15.7 L HEMATOCRIT (BEAKER) (test code = 411) 34.0 % 34.1-44.9 L MEAN CORPUSCULAR VOLUME (BEAKER) (test code = 753) 89.7 fL 79. 4-94.8 MEAN CORPUSCULAR HEMOGLOBIN (BEAKER) (test code = 751) 27.7 pg 25.6-32.2 MEAN CORPUSCULAR HEMOGLOBIN CONC (BEAKER) (test code = 752) 30.9 GM/DL 32.2-35.5 L RED CELL DISTRIBUTION WIDTH (BEAKER) (test code = 412) 13.2 % 11.7-14.4 PLATELET COUNT (BEAKER) (test code = 756) 255 K/CU MM 150-450 MEAN PLATELET VOLUME (BEAKER) (test code = 754) 9.5 fL 9.4-12 .3 NUCLEATED RED BLOOD CELLS (BEAKER) (test code = 413) 0 /100 WBC 0 -0 NEUTROPHILS RELATIVE PERCENT (BEAKER) (test code = 429) 84 % LYMPHOCYTES RELATIVE PERCENT (BEAKER) (test code = 430) 9 % MONOCYTES RELATIVE PERCENT (BEAKER) (test code = 431) 7 % EOSINOPHILS RELATIVE PERCENT (BEAKER) (test code = 432) 0 % BASOPHILS RELATIVE PERCENT (BEAKER) (test code = 437) 0 % NEUTROPHILS ABSOLUTE COUNT (BEAKER) (test code = 670) 12.29 K/ L 1.56-6.13 H LYMPHOCYTES ABSOLUTE COUNT (BEAKER) (test code = 414) 1.28 K/ L 1.18-3.74 MONOCYTES ABSOLUTE COUNT (BEAKER) (test code = 415) 0.99 K/ L 0. 24-0.36 H EOSINOPHILS ABSOLUTE COUNT (BEAKER) (test code = 416) 0.00 K/ L 0.04-0.36 L BASOPHILS ABSOLUTE COUNT (BEAKER) (test code = 417) 0.02 K/ L 0. 01-0.08 IMMATURE GRANULOCYTES-RELATIVE PERCENT (BEAKER) (test code = 2801) 0 % 0-1 U/S, TRANSPLANT, [id number] 11:12:00Reason for Exam:->Z94.0FINAL REPORT INDICATION: 47-year-old female with history of kidney transplant. COMPARISON: Abdomen pelvis CT November 01, 2016Renal transplant ultrasound November 03, 2015 FINDINGS:Sonographic evaluation of the transplanted k idney is performed. In addition, color Doppler and spectral wave form analysis e valuations of the renal vasculature are obtained. There is a right iliac fossa r enal transplant. Renal transplant measures 10.3 x 6.2 x 5.0 cm. Cortical thickne ss and vascularity of the renal transplant appear normal. No hydronephrosis, mas s, or renal stone is demonstrated. No perinephric collection. Upper, middle, and lower RIs are 0.63, 0.67, and 0.61, respectively. Arterial PSV:Iliac artery: Ab ove the anastomosis 71 cm/s and below the anastomosis 40 cm/s.Anastomosis: 95 cm /s.Main renal artery: 28 cm/s. Venous PSV:Iliac vein: Above the anastomosis 86 c m/s and below the anastomosis 31 cm/s.Anastomosis: 68 cm/s.Main renal vein: 48 c m/s. Bladder volume is 75 cc, no bladder wall abnormality demonstrated. Postvoid bladder volume is 8 cc. IMPRESSION:Right iliac fossa renal transplant without e vidence of complication. Signed: Philip Sandoval MDReport Verified Date/Time: 02/22/2018 11:12:44 Reading Location: [address] Radiology Reading Room [facility] signed by: PHILIP SANDOVAL M.D. on 02/22/2018 11:12 AM BASIC METABOLIC [id number] 20:04:00* Test Item Value Reference Range Interpretation Comments SODIUM (BEAKER) (test code = 381) 139 meq/L 136-145 POTASSIUM (BEAKER) (test code = 379) 5.2 meq/L 3.5-5.1 H CHLORIDE (BEAKER) (test code = 382) 108 meq/L 98-107 H CO2 (BEAKER) (test code = 355) 19 meq/L 22-29 L BLOOD UREA NITROGEN (BEAKER) (test code = 354) 33 mg/dL 7-21 H CREATININE (BEAKER) (test code = 358) 2.41 mg/dL 0.57-1.25 H GLUCOSE RANDOM (BEAKER) (test code = 652) 112 mg/dL 70-105 H CALCIUM (BEAKER) (test code = 697) 9.7 mg/dL 8.4-10.2 EGFR (BEAKER) (test code = 1092) 26 mL/min/1.73 sq m ESTIMATED GFR IS NOT ACCURATE CREATININE CLEARANCE IN PREDICTING GLOMERULAR FILTRATION RATE. ESTIMATED GFR IS NOT APPLICABLE FOR DIALYSIS PATIENTS. CBC W/PLT COUNT & AUTO [id number] 19:53:00* Test Item Value Reference Range Interpretation Comments WHITE BLOOD CELL COUNT (BEAKER) (test code = 775) 12.3 K/ L 3.5- 10.5 H RED BLOOD CELL COUNT (BEAKER) (test code = 761) 3.69 M/ L 3.93-5 .22 L HEMOGLOBIN (BEAKER) (test code = 410) 10.1 GM/DL 11.2-15.7 L HEMATOCRIT (BEAKER) (test code = 411) 33.3 % 34.1-44.9 L MEAN CORPUSCULAR VOLUME (BEAKER) (test code = 753) 90.2 fL 79. 4-94.8 MEAN CORPUSCULAR HEMOGLOBIN (BEAKER) (test code = 751) 27.4 pg 25.6-32.2 MEAN CORPUSCULAR HEMOGLOBIN CONC (BEAKER) (test code = 752) 30.3 GM/DL 32.2-35.5 L RED CELL DISTRIBUTION WIDTH (BEAKER) (test code = 412) 13.4 % 11.7-14.4 PLATELET COUNT (BEAKER) (test code = 756) 201 K/CU MM 150-450 MEAN PLATELET VOLUME (BEAKER) (test code = 754) 9.2 fL 9.4-12 .3 L NUCLEATED RED BLOOD CELLS (BEAKER) (test code = 413) 0 /100 WBC 0 -0 NEUTROPHILS RELATIVE PERCENT (BEAKER) (test code = 429) 85 % LYMPHOCYTES RELATIVE PERCENT (BEAKER) (test code = 430) 9 % MONOCYTES RELATIVE PERCENT (BEAKER) (test code = 431) 6 % EOSINOPHILS RELATIVE PERCENT (BEAKER) (test code = 432) 0 % BASOPHILS RELATIVE PERCENT (BEAKER) (test code = 437) 0 % NEUTROPHILS ABSOLUTE COUNT (BEAKER) (test code = 670) 10.43 K/ L 1.56-6.13 H LYMPHOCYTES ABSOLUTE COUNT (BEAKER) (test code = 414) 1.11 K/ L 1.18-3.74 L MONOCYTES ABSOLUTE COUNT (BEAKER) (test code = 415) 0.69 K/ L 0. 24-0.36 H EOSINOPHILS ABSOLUTE COUNT (BEAKER) (test code = 416) 0.00 K/ L 0.04-0.36 L BASOPHILS ABSOLUTE COUNT (BEAKER) (test code = 417) 0.01 K/ L 0. 01-0.08 IMMATURE GRANULOCYTES-RELATIVE PERCENT (BEAKER) (test code = 2801) 0 % 0-1 POCT-LACTIC ACID, [id number] 19:41:00* Test Item Value Reference Range Interpretation Comments POC-LACTIC ACID, VENOUS (BEAKER) (test code = 2805) 0.5 mmol/L 0. 9-1.7 L TESTED AT [facility] [address] [facility] [address] CHEM [id number] 06:57:001.3[facility] TzappziDTBHF9341-53-00 06:57:00Negative (03/18/17 12:57 AM)[facility]ann[facility]ARD[facility]AC [id number] 05:42:28359Wupybwty HermannCARDIAC RWPAQEL0223-28-28 05:42:00<0.02[facility]annCHEM PANEL 2017-03-18 05:42:001.9[facility]annCHEM [id number] 05:42:00972Svqpvkkx HermannCHEM [id number] 05:42:001.7[facility]annCHEM [id number] 05:42:008.8[facility]annCHEM [id number] 05:42:0012[facility]annCHEM [id number] 05:42:004.7[facility]annCHEM [id number] 05:42:38626 [facility]ann[facility] [id number] 05:42:23683Nbcwqufe HermannCHEM PANEL 2017-03-18 05:42:0011.7[facility]annCHEM [id number] 05:42:0026[facility]annCHEM [id number] 05:42:0026[facility]annCHEM [id number] 05:42:002.13[facility]annCHEM [id number] 05:42:000.9[facility]annCHEM [id number] 05:42:0031[facility]annCHEM [id number] 05:42:0037 [facility]annCHEM [id number] 05:42:003.8[facility]annCHEM PANEL 2017-03-18 05:42:004.1[facility]annCHEM [id number] 05:42:007.9[facility]annCHEM [id number] 05:42:71145Hhstdqmn HermannCHEM [id number] 05:42:0019[facility]annCHEM [id number] 05:42:000.7[facility]annCHEM YMUQG3706-55-79 05:42:0090[facility] AplovxsUGOFBRFRLW9173-53-75 05:42:007.7 [facility] PxuhrbnRFZZTENWED8134-85-41 05:42:004.05[facility]annHEMATOLOGY 2017-03-18 05:42:006.8[facility] ZgfnwcdWBDOSQVVBW9518-99-89 05:42:0031.7[facility] AemqhnsIOEFAFPBJG0962-10-56 05:42:0013.7[facility] NjtojwvIBULPZMGEC1491-38-16 05:42:33719Amvncpfj SudvolcFVWIBHBHWN9958-69-37 05:42:0011.0[facility] PZCPSXHDPA8956-95-76 05:42:0034.5[facility] YbjnrxoTCILNTFJCV6157-58-52 05:42:00 85.4[facility] HakdhteSWFVFSMUUY4131-26-06 05:42:00* Test Item Value Reference Range Interpretation Comments MCH (test code = MCH) 27.1 pg 27.0-31.0 [facility] PomciadBMNYSQFPRA6785-80-63 05:42:004.0[facility]annHEMATOLOGY 2017-03-18 05:42:0085.7[facility] QvckediRYCCVXXIZN2393-33-94 05:42:000.8[facility] AgnwszzDBMGGAJSTK5684-46-67 05:42:000.3[facility] RdslteeQXZUIXGPXZ4781-95-90 05:42:006.6[facility] TsdysziCRVGOMTSZN7634-32-97 05:42:000.2[facility] PPNASKCNCR7347-32-07 05:42:00Moderate *ABN*(03/17/17 11:42 PM)[facility] PVCVDRNPCJ6850-05-69 05:42:000.1[facility] XqcgloqZMNTQTKUVN4122-77-80 05:42:00 10.0[facility] VnzyxyyJYZOWLJMVB4424-44-12 05:42:00Normal (03/17/17 11:42 PM) [facility] NsrmunpTVQMOGQWNT6384-27-11 05:42:00Normal (03/17/17 11:42 PM)[facility]ann[facility] AND [id number] 05:42:00Negative (03/17/17 11:42 PM)[facility] AND OIXGC4351-54-91 05:42:0032[facility]ann[facility] AND STOOL 2017-03-18 05:42:002[facility] AND [id number] 05:42:00Negative (03/17/17 11:42 PM)[facility] AND [id number] 05:42:00Large *ABN*(03/17/17 11:42 PM)[facility] PFDFP5056-18-23 05:42:00 Negative *NA*(03/17/17 11:42 PM)[facility] [id number] 05:42:008.0[facility] AND YQZTD5470-59-11 05:42:00Clear (03/17/17 11:42 PM)[facility] AND [id number] 05:42:001.013[facility] VIRAL - [id number] 05:42:00Negative (03/17/17 11:42 PM)[facility] VIRAL - [id number] 05:42:00Negative (03/17/17 11:42 PM)[facility] CYCLOSPORINE [id number] 09:18:00* Test Item Value Reference Range Interpretation Comments CYCLOSPORINE BLOOD (BEAKER) (test code = 672) 167 ng/mL <400 [id number] 07:32:00* Test Item Value Reference Range Interpretation Comments MAGNESIUM (BEAKER) (test code = 627) 1.7 mg/dL 1.6-2.6 BASIC METABOLIC [id number] 07:32:00* Test Item Value Reference Range Interpretation Comments SODIUM (BEAKER) (test code = 381) 139 meq/L 136-145 POTASSIUM (BEAKER) (test code = 379) 4.1 meq/L 3.5-5.1 CHLORIDE (BEAKER) (test code = 382) 107 meq/L 98-107 CO2 (BEAKER) (test code = 355) 24 meq/L 22-29 BLOOD UREA NITROGEN (BEAKER) (test code = 354) 21 mg/dL 7-21 CREATININE (BEAKER) (test code = 358) 2.07 mg/dL 0.57-1.25 H GLUCOSE RANDOM (BEAKER) (test code = 652) 95 mg/dL 70-105 CALCIUM (BEAKER) (test code = 697) 9.4 mg/dL 8.4-10.2 EGFR (BEAKER) (test code = 1092) 31 mL/min/1.73 sq m ESTIMATED GFR IS NOT ACCURATE CREATININE CLEARANCE IN PREDICTING GLOMERULAR FILTRATION RATE. ESTIMATED GFR IS NOT APPLICABLE FOR DIALYSIS PATIENTS. LIPID [id number] 07:32:00* Test Item Value Reference Range Interpretation Comments TRIGLYCERIDES (BEAKER) (test code = 540) 93 mg/dL CHOLESTEROL (BEAKER) (test code = 631) 182 mg/dL HDL CHOLESTEROL (BEAKER) (test code = 976) 55 mg/dL LDL CHOLESTEROL CALCULATED (BEAKER) (test code = 633) 108 mg/dL Triglyceride Reference Range: Low Risk <150 Borderline 150-199 High Risk 200-499 Very High Risk >=500Cholesterol Reference Range: Low Risk <200 Borderline 200-239 High Risk >240HDL Cholesterol Reference Range: Low Risk >=60 High Risk <40LDL Cholesterol Reference Range: Optimal <100 Near Optimal 100-129 Borderline 130-159 High 160-189 Very High >=190 HEPATIC FUNCTION [id number] 07:32:00* Test Item Value Reference Range Interpretation Comments TOTAL PROTEIN (BEAKER) (test code = 770) 7.6 gm/dL 6.0-8.3 ALBUMIN (BEAKER) (test code = 1145) 3.9 g/dL 3.5-5.0 BILIRUBIN TOTAL (BEAKER) (test code = 377) 0.5 mg/dL 0.2-1.2 BILIRUBIN DIRECT (BEAKER) (test code = 706) 0.2 mg/dL 0.1-0.5 ALKALINE PHOSPHATASE (BEAKER) (test code = 346) 91 U/L 40-150 AST (SGOT) (BEAKER) (test code = 353) 20 U/L 5-34 ALT (SGPT) (BEAKER) (test code = 347) 28 U/L 6-55 CREATININE, RANDOM [id number] 07:32:00* Test Item Value Reference Range Interpretation Comments CREATININE URINE (BEAKER) (test code = 375) 146.9 mg/dL Reference Range: No NormalsPROTEIN, RANDOM [id number] 07:32:00* Test Item Value Reference Range Interpretation Comments PROTEIN, URINE (BEAKER) (test code = 1569) 7 mg/dL 0-14 CBC (HEMOGRAM ONLY)2017-02-01 07:07:00* Test Item Value Reference Range Interpretation Comments WHITE BLOOD CELL COUNT (BEAKER) (test code = 775) 9.9 K/ L 3.5- 10.5 RED BLOOD CELL COUNT (BEAKER) (test code = 761) 3.80 M/ L 3.93-5 .22 L HEMOGLOBIN (BEAKER) (test code = 410) 10.5 GM/DL 11.2-15.7 L HEMATOCRIT (BEAKER) (test code = 411) 35.1 % 34.1-44.9 MEAN CORPUSCULAR VOLUME (BEAKER) (test code = 753) 92.4 fL 79. 4-94.8 MEAN CORPUSCULAR HEMOGLOBIN (BEAKER) (test code = 751) 27.6 pg 25.6-32.2 MEAN CORPUSCULAR HEMOGLOBIN CONC (BEAKER) (test code = 752) 29.9 GM/DL 32.2-35.5 L RED CELL DISTRIBUTION WIDTH (BEAKER) (test code = 412) 13.2 % 11.7-14.4 PLATELET COUNT (BEAKER) (test code = 756) 196 K/CU MM 150-450 MEAN PLATELET VOLUME (BEAKER) (test code = 754) 9.2 fL 9.4-12 .3 L NUCLEATED RED BLOOD CELLS (BEAKER) (test code = 413) 0 /100 WBC 0 -0 [id number] 00:20:00* Test Item Value Reference Range Interpretation Comments LIPASE (BEAKER) (test code = 749) 30 U/L 8-78 HEPATIC FUNCTION [id number] 00:20:00* Test Item Value Reference Range Interpretation Comments TOTAL PROTEIN (BEAKER) (test code = 770) 7.8 gm/dL 6.0-8.3 Specimen slightly hemolyzed ALBUMIN (BEAKER) (test code = 1145) 4.2 g/dL 3.5-5.0 Specimen slightly hemolyzed BILIRUBIN TOTAL (BEAKER) (test code = 377) 0.3 mg/dL 0.2-1.2 Specimen slightly hemolyzed BILIRUBIN DIRECT (BEAKER) (test code = 706) 0.1 mg/dL 0.1-0.5 Specimen slightly hemolyzed ALKALINE PHOSPHATASE (BEAKER) (test code = 346) 88 U/L 40-150 AST (SGOT) (BEAKER) (test code = 353) 23 U/L 5-34 Specimen slightly hemolyzed ALT (SGPT) (BEAKER) (test code = 347) 20 U/L 6-55 Specimen slightly hemolyzed BASIC METABOLIC [id number] 21:20:00* Test Item Value Reference Range Interpretation Comments SODIUM (BEAKER) (test code = 381) 136 meq/L 136-145 POTASSIUM (BEAKER) (test code = 379) 5.0 meq/L 3.5-5.1 Specimen slightly hemolyzed CHLORIDE (BEAKER) (test code = 382) 105 meq/L 98-107 CO2 (BEAKER) (test code = 355) 20 meq/L 22-29 L BLOOD UREA NITROGEN (BEAKER) (test code = 354) 34 mg/dL 7-21 H CREATININE (BEAKER) (test code = 358) 2.33 mg/dL 0.57-1.25 H Specimen slightly hemolyzed GLUCOSE RANDOM (BEAKER) (test code = 652) 83 mg/dL 70-105 CALCIUM (BEAKER) (test code = 697) 9.3 mg/dL 8.4-10.2 EGFR (BEAKER) (test code = 1092) 27 mL/min/1.73 sq m ESTIMATED GFR IS NOT ACCURATE CREATININE CLEARANCE IN PREDICTING GLOMERULAR FILTRATION RATE. ESTIMATED GFR IS NOT APPLICABLE FOR DIALYSIS PATIENTS. SCREEN, [id number] 21:08:00* Test Item Value Reference Range Interpretation Comments TEST URINE (BEAKER) (test code = 583) Negative URINALYSIS W/ [id number] 21:08:00* Test Item Value Reference Range Interpretation Comments COLOR (BEAKER) (test code = 470) Light Yellow CLARITY (BEAKER) (test code = 469) Clear SPECIFIC GRAVITY UA (BEAKER) (test code = 468) 1.014 1.001-1 .035 PH UA (BEAKER) (test code = 467) 5.5 5.0-8.0 PROTEIN UA (BEAKER) (test code = 464) Negative Negative GLUCOSE UA (BEAKER) (test code = 365) Negative Negative KETONES UA (BEAKER) (test code = 371) Negative Negative BILIRUBIN UA (BEAKER) (test code = 462) Negative Negative BLOOD UA (BEAKER) (test code = 461) Negative Negative NITRITE UA (BEAKER) (test code = 465) Negative Negative LEUKOCYTE ESTERASE UA (BEAKER) (test code = 466) Negative Negat radha UROBILINOGEN UA (BEAKER) (test code = 463) 0.2 mg/dL 0.2-1.0 RBC UA (BEAKER) (test code = 519) < /HPF WBC UA (BEAKER) (test code = 520) < /HPF SQUAMOUS EPITHELIAL (BEAKER) (test code = 516) < /HPF SOURCE(BEAKER) (test code = 2795) Urine, Clean Catch CBC W/PLT COUNT & AUTO [id number] 21:04:00* Test Item Value Reference Range Interpretation Comments WHITE BLOOD CELL COUNT (BEAKER) (test code = 775) 12.5 K/ L 4.0- 10.0 H RED BLOOD CELL COUNT (BEAKER) (test code = 761) 3.69 M/ L 4.00-5 .00 L HEMOGLOBIN (BEAKER) (test code = 410) 10.6 GM/DL 12.0-15.0 L HEMATOCRIT (BEAKER) (test code = 411) 33.4 % 36.0-45.0 L MEAN CORPUSCULAR VOLUME (BEAKER) (test code = 753) 90.6 fL 82. 0-99.0 MEAN CORPUSCULAR HEMOGLOBIN (BEAKER) (test code = 751) 28.7 pg 27.0-33.0 MEAN CORPUSCULAR HEMOGLOBIN CONC (BEAKER) (test code = 752) 31.6 GM/DL 32.0-36.0 L RED CELL DISTRIBUTION WIDTH (BEAKER) (test code = 412) 14.0 % 10.3-14.2 PLATELET COUNT (BEAKER) (test code = 756) 221 K/CU MM 150-430 MEAN PLATELET VOLUME (BEAKER) (test code = 754) 6.8 fL 6.5-10 .5 NUCLEATED RED BLOOD CELLS (BEAKER) (test code = 413) 0 /100 WBC 0 -0 NEUTROPHILS RELATIVE PERCENT (BEAKER) (test code = 429) 80 % LYMPHOCYTES RELATIVE PERCENT (BEAKER) (test code = 430) 12 % MONOCYTES RELATIVE PERCENT (BEAKER) (test code = 431) 7 % EOSINOPHILS RELATIVE PERCENT (BEAKER) (test code = 432) 0 % BASOPHILS RELATIVE PERCENT (BEAKER) (test code = 437) 0 % NEUTROPHILS ABSOLUTE COUNT (BEAKER) (test code = 670) 10.10 K/ L 1.80-8.00 H LYMPHOCYTES ABSOLUTE COUNT (BEAKER) (test code = 414) 1.44 K/ L 1.48-4.50 L MONOCYTES ABSOLUTE COUNT (BEAKER) (test code = 415) 0.93 K/ L 0. 00-1.30 EOSINOPHILS ABSOLUTE COUNT (BEAKER) (test code = 416) 0.02 K/ L 0.00-0.50 BASOPHILS ABSOLUTE COUNT (BEAKER) (test code = 417) 0.05 K/ L 0. 00-0.20 0.00URINE [id number] 12:13:00* Test Item Value Reference Range Interpretation Comments CULTURE (BEAKER) (test code = 1095) See comment <10,000 col/ml gram negative rods 10-19,000 col/ml skin floraBASIC METABOLIC [id number] 23:39:00* Test Item Value Reference Range Interpretation Comments SODIUM (BEAKER) (test code = 381) 136 meq/L 136-145 POTASSIUM (BEAKER) (test code = 379) 4.8 meq/L 3.5-5.1 CHLORIDE (BEAKER) (test code = 382) 107 meq/L 98-107 CO2 (BEAKER) (test code = 355) 19 meq/L 22-29 L BLOOD UREA NITROGEN (BEAKER) (test code = 354) 30 mg/dL 7-21 H CREATININE (BEAKER) (test code = 358) 2.48 mg/dL 0.57-1.25 H GLUCOSE RANDOM (BEAKER) (test code = 652) 145 mg/dL 70-105 H CALCIUM (BEAKER) (test code = 697) 9.2 mg/dL 8.4-10.2 EGFR (BEAKER) (test code = 1092) 25 mL/min/1.73 sq m ESTIMATED GFR IS NOT ACCURATE CREATININE CLEARANCE IN PREDICTING GLOMERULAR FILTRATION RATE. ESTIMATED GFR IS NOT APPLICABLE FOR DIALYSIS PATIENTS. CBC W/PLT COUNT & AUTO [id number] 23:07:00* Test Item Value Reference Range Interpretation Comments WHITE BLOOD CELL COUNT (BEAKER) (test code = 775) 10.1 K/ L 4.0- 10.0 H RED BLOOD CELL COUNT (BEAKER) (test code = 761) 3.57 M/ L 4.00-5 .00 L HEMOGLOBIN (BEAKER) (test code = 410) 10.6 GM/DL 12.0-15.0 L HEMATOCRIT (BEAKER) (test code = 411) 32.1 % 36.0-45.0 L MEAN CORPUSCULAR VOLUME (BEAKER) (test code = 753) 90.0 fL 82. 0-99.0 MEAN CORPUSCULAR HEMOGLOBIN (BEAKER) (test code = 751) 29.8 pg 27.0-33.0 MEAN CORPUSCULAR HEMOGLOBIN CONC (BEAKER) (test code = 752) 33.1 GM/DL 32.0-36.0 RED CELL DISTRIBUTION WIDTH (BEAKER) (test code = 412) 14.1 % 10.3-14.2 PLATELET COUNT (BEAKER) (test code = 756) 201 K/CU MM 150-430 MEAN PLATELET VOLUME (BEAKER) (test code = 754) 6.8 fL 6.5-10 .5 NUCLEATED RED BLOOD CELLS (BEAKER) (test code = 413) 0 /100 WBC 0 -0 NEUTROPHILS RELATIVE PERCENT (BEAKER) (test code = 429) 81 % LYMPHOCYTES RELATIVE PERCENT (BEAKER) (test code = 430) 11 % MONOCYTES RELATIVE PERCENT (BEAKER) (test code = 431) 7 % EOSINOPHILS RELATIVE PERCENT (BEAKER) (test code = 432) 0 % BASOPHILS RELATIVE PERCENT (BEAKER) (test code = 437) 0 % NEUTROPHILS ABSOLUTE COUNT (BEAKER) (test code = 670) 8.18 K/ L 1.80-8.00 H LYMPHOCYTES ABSOLUTE COUNT (BEAKER) (test code = 414) 1.12 K/ L 1.48-4.50 L MONOCYTES ABSOLUTE COUNT (BEAKER) (test code = 415) 0.74 K/ L 0. 00-1.30 EOSINOPHILS ABSOLUTE COUNT (BEAKER) (test code = 416) 0.02 K/ L 0.00-0.50 BASOPHILS ABSOLUTE COUNT (BEAKER) (test code = 417) 0.03 K/ L 0. 00-0.20 0.00URINALYSIS WITH MICROSCOPIC IF [id number] 23:00:00* Test Item Value Reference Range Interpretation Comments COLOR (BEAKER) (test code = 470) Light Yellow CLARITY (BEAKER) (test code = 469) Clear SPECIFIC GRAVITY UA (BEAKER) (test code = 468) 1.012 1.001-1 .035 PH UA (BEAKER) (test code = 467) 6.0 5.0-8.0 PROTEIN UA (BEAKER) (test code = 464) Negative Negative GLUCOSE UA (BEAKER) (test code = 365) Negative Negative KETONES UA (BEAKER) (test code = 371) Negative Negative BILIRUBIN UA (BEAKER) (test code = 462) Negative Negative BLOOD UA (BEAKER) (test code = 461) Negative Negative NITRITE UA (BEAKER) (test code = 465) Negative Negative LEUKOCYTE ESTERASE UA (BEAKER) (test code = 466) Negative Negat radha UROBILINOGEN UA (BEAKER) (test code = 463) 0.2 mg/dL 0.2-1.0 SOURCE(BEAKER) (test code = 2795) SCREEN, [id number] 22:40:00* Test Item Value Reference Range Interpretation Comments TEST URINE (BEAKER) (test code = 583) Negative CREATINE KINASE (CK), TOTAL AND [id number] 12:40:00* Test Item Value Reference Range Interpretation Comments CREATINE KINASE TOTAL (BEAKER) (test code = 380) 85 U/L 29-20 0 CREATINE KINASE-MB (BEAKER) (test code = 750) 0.5 ng/mL 0.0-6.6 CREATINE KINASE-MB INDEX (BEAKER) (test code = 395) 0.6 % Effective 02/27/2014: CK-MB Reference Range ChangeNew: 0.0-6.6 Previous: 0.0- 4.9CK-MB Reference Range:<6.7 Normal6.7-10.0 Borderline>10.0 Abnormal TROPONIN [id number] 12:40:00* Test Item Value Reference Range Interpretation Comments TROPONIN I (BEAKER) (test code = 397) < ng/mL 0.00-0.03 Effective 02/27/2014: Reference Range ChangeNew: 0.00-0.03 Previous 0.00-0.15T roponin I (TnI) levels must be interpreted in the context of the presenting symp toms and the clinical findings. Elevated TnI levels indicate myocardial damage, but are not specific for ischemic heart disease. Elevated TnI levels are seen in patients with other cardiac conditions (including myocarditis and congestive he art failure), and slight TnI elevations occur in patients with other conditions, including sepsis, renal failure, acidosis, acute neurological disease, and pers istent tachyarrhythmia.B-TYPE NATRIURETIC FACTOR (BNP)2016-07-21 12:36:00* Test Item Value Reference Range Interpretation Comments B-TYPE NATRIURETIC PEPTIDE (BEAKER) (test code = 700) 24 pg/mL 0-100 BASIC METABOLIC [id number] 12:35:00* Test Item Value Reference Range Interpretation Comments SODIUM (BEAKER) (test code = 381) 138 meq/L 136-145 POTASSIUM (BEAKER) (test code = 379) 3.6 meq/L 3.5-5.1 CHLORIDE (BEAKER) (test code = 382) 105 meq/L 98-107 CO2 (BEAKER) (test code = 355) 21 meq/L 22-29 L BLOOD UREA NITROGEN (BEAKER) (test code = 354) 28 mg/dL 7-21 H CREATININE (BEAKER) (test code = 358) 2.22 mg/dL 0.57-1.25 H GLUCOSE RANDOM (BEAKER) (test code = 652) 91 mg/dL 70-105 CALCIUM (BEAKER) (test code = 697) 9.7 mg/dL 8.4-10.2 EGFR (BEAKER) (test code = 1092) 29 mL/min/1.73 sq m ESTIMATED GFR IS NOT ACCURATE CREATININE CLEARANCE IN PREDICTING GLOMERULAR FILTRATION RATE. ESTIMATED GFR IS NOT APPLICABLE FOR DIALYSIS PATIENTS. CBC W/PLT COUNT & AUTO [id number] 11:56:00* Test Item Value Reference Range Interpretation Comments WHITE BLOOD CELL COUNT (BEAKER) (test code = 775) 8.7 K/ L 4.0- 10.0 RED BLOOD CELL COUNT (BEAKER) (test code = 761) 3.76 M/ L 4.00-5 .00 L HEMOGLOBIN (BEAKER) (test code = 410) 11.0 GM/DL 12.0-15.0 L HEMATOCRIT (BEAKER) (test code = 411) 34.4 % 36.0-45.0 L MEAN CORPUSCULAR VOLUME (BEAKER) (test code = 753) 91.3 fL 82. 0-99.0 MEAN CORPUSCULAR HEMOGLOBIN (BEAKER) (test code = 751) 29.3 pg 27.0-33.0 MEAN CORPUSCULAR HEMOGLOBIN CONC (BEAKER) (test code = 752) 32.1 GM/DL 32.0-36.0 RED CELL DISTRIBUTION WIDTH (BEAKER) (test code = 412) 13.4 % 10.3-14.2 PLATELET COUNT (BEAKER) (test code = 756) 225 K/CU MM 150-430 MEAN PLATELET VOLUME (BEAKER) (test code = 754) 6.9 fL 6.5-10 .5 NUCLEATED RED BLOOD CELLS (BEAKER) (test code = 413) 0 /100 WBC 0 -0 NEUTROPHILS RELATIVE PERCENT (BEAKER) (test code = 429) 78 % LYMPHOCYTES RELATIVE PERCENT (BEAKER) (test code = 430) 14 % MONOCYTES RELATIVE PERCENT (BEAKER) (test code = 431) 8 % EOSINOPHILS RELATIVE PERCENT (BEAKER) (test code = 432) 0 % BASOPHILS RELATIVE PERCENT (BEAKER) (test code = 437) 0 % NEUTROPHILS ABSOLUTE COUNT (BEAKER) (test code = 670) 6.72 K/ L 1.80-8.00 LYMPHOCYTES ABSOLUTE COUNT (BEAKER) (test code = 414) 1.23 K/ L 1.48-4.50 L MONOCYTES ABSOLUTE COUNT (BEAKER) (test code = 415) 0.67 K/ L 0. 00-1.30 EOSINOPHILS ABSOLUTE COUNT (BEAKER) (test code = 416) 0.02 K/ L 0.00-0.50 BASOPHILS ABSOLUTE COUNT (BEAKER) (test code = 417) 0.01 K/ L 0. 00-0.20 0.00CYCLOSPORINE [id number] 09:19:00* Test Item Value Reference Range Interpretation Comments CYCLOSPORINE BLOOD (BEAKER) (test code = 672) 112 ng/mL <400 CBC (HEMOGRAM ONLY)2016-07-06 07:40:00* Test Item Value Reference Range Interpretation Comments WHITE BLOOD CELL COUNT (BEAKER) (test code = 775) 12.1 K/ L 4.0- 10.0 H RED BLOOD CELL COUNT (BEAKER) (test code = 761) 3.67 M/ L 4.00-5 .00 L HEMOGLOBIN (BEAKER) (test code = 410) 10.6 GM/DL 12.0-15.0 L HEMATOCRIT (BEAKER) (test code = 411) 33.5 % 36.0-45.0 L MEAN CORPUSCULAR VOLUME (BEAKER) (test code = 753) 91.3 fL 82. 0-99.0 MEAN CORPUSCULAR HEMOGLOBIN (BEAKER) (test code = 751) 28.9 pg 27.0-33.0 MEAN CORPUSCULAR HEMOGLOBIN CONC (BEAKER) (test code = 752) 31.6 GM/DL 32.0-36.0 L RED CELL DISTRIBUTION WIDTH (BEAKER) (test code = 412) 12.3 % 10.3-14.2 PLATELET COUNT (BEAKER) (test code = 756) 233 K/CU MM 150-430 MEAN PLATELET VOLUME (BEAKER) (test code = 754) 6.6 fL 6.5-10 .5 NUCLEATED RED BLOOD CELLS (BEAKER) (test code = 413) 0 /100 WBC 0 -0 0.00BASIC METABOLIC [id number] 07:36:00* Test Item Value Reference Range Interpretation Comments SODIUM (BEAKER) (test code = 381) 139 meq/L 136-145 POTASSIUM (BEAKER) (test code = 379) 4.4 meq/L 3.5-5.1 CHLORIDE (BEAKER) (test code = 382) 107 meq/L 98-107 CO2 (BEAKER) (test code = 355) 23 meq/L 22-29 BLOOD UREA NITROGEN (BEAKER) (test code = 354) 29 mg/dL 7-21 H CREATININE (BEAKER) (test code = 358) 2.23 mg/dL 0.57-1.25 H GLUCOSE RANDOM (BEAKER) (test code = 652) 86 mg/dL 70-105 CALCIUM (BEAKER) (test code = 697) 9.5 mg/dL 8.4-10.2 EGFR (BEAKER) (test code = 1092) 29 mL/min/1.73 sq m ESTIMATED GFR IS NOT ACCURATE CREATININE CLEARANCE IN PREDICTING GLOMERULAR FILTRATION RATE. ESTIMATED GFR IS NOT APPLICABLE FOR DIALYSIS PATIENTS. CREATININE, RANDOM [id number] 07:36:00* Test Item Value Reference Range Interpretation Comments CREATININE URINE (BEAKER) (test code = 375) 203.2 mg/dL Reference Range: No SmadirfCQYQXRBIZ9857-65-48 07:34:00* Test Item Value Reference Range Interpretation Comments MAGNESIUM (BEAKER) (test code = 627) 1.8 mg/dL 1.6-2.6 HEPATIC FUNCTION [id number] 07:34:00* Test Item Value Reference Range Interpretation Comments TOTAL PROTEIN (BEAKER) (test code = 770) 7.4 gm/dL 6.0-8.3 ALBUMIN (BEAKER) (test code = 1145) 3.9 g/dL 3.5-5.0 BILIRUBIN TOTAL (BEAKER) (test code = 377) 0.7 mg/dL 0.2-1.2 BILIRUBIN DIRECT (BEAKER) (test code = 706) 0.3 mg/dL 0.1-0.5 ALKALINE PHOSPHATASE (BEAKER) (test code = 346) 71 U/L 40-150 AST (SGOT) (BEAKER) (test code = 353) 18 U/L 5-34 ALT (SGPT) (BEAKER) (test code = 347) 21 U/L 6-55 PROTEIN, RANDOM [id number] 07:33:00* Test Item Value Reference Range Interpretation Comments PROTEIN, URINE (BEAKER) (test code = 1569) 10 mg/dL 0-14 [id number] 04:23:00Negative (05/06/15 10:23 PM)[facility] QLDJLVHM7880-54-44 04:23:00Negative (05/06/15 10:23 PM)[facility] YWZWKSYL2210-30-26 04:23:00Negative (05/06/15 10:23 PM)[facility]ann[facility] PANEL 2015-05-07 02:51:003.9[facility] VXNXJ6592-34-22 02:51:000.9[facility] XQVYR8367-83-42 02:51:0011.7[facility] YSVQV4899-34-10 02:51:0011[facility] IZIBY9663-08-86 02:51:0029[facility] RVWFM4518-28-28 02:51:0026[facility] DLFBQ2367-40-56 02:51:002.28 [facility] PQQIZ1283-06-71 02:51:03695Xflvzmyk HermannCHEM PANEL 2015-05-07 02:51:08617Pcmtgcyj [facility]annCHE[facility] LNZWS6907-62-30 02:51:0081[facility] NKZXG9492-60-82 02:51:000.4[facility]annCHE[facility] AEVHA7482-80-47 02:51:0020[facility]CHE[facility] OSNZN8956-19-54 02:51:0034[facility] EVWTE5122-96-92 02:51:007.6[facility] DPRKH0390-72-56 02:51:003.7 [facility] YYVGJ4555-47-09 02:51:009.3[facility]annCHE[facility] PANEL 2015-05-07 02:51:77676Fnbqcroj HermannCHEM YUDCU2290-95-75 02:51:0027[facility] XTSDZ1779-85-40 02:51:004.7[facility] GtowyyaIELPYLAZTM6460-31-35 02:51:0034.5[facility] UbbtbhjZJONXRBMZR3001-78-12 02:51:0088.1[facility] CZEEEIGLTL1672-74-59 02:51:00* Test Item Value Reference Range Interpretation Comments MCH (test code = MCH) 27.4 pg 27.0-31.0 [facility] VdttfseAWNWVCVMDD6306-40-44 02:51:0013.9[facility]annHEMATOLOGY 2015-05-07 02:51:92203Edxlbwhj RypsolcZZPJXSWMAE9587-54-99 02:51:0031.1[facility] NlmocygYIOKFGYBRZ1564-29-11 02:51:007.0[facility] NgnkjnsATLRYPCYTG7953-22-87 02:51:006.6[facility] DlgosmxQYVRGVHCUR4641-47-07 02:51:003.92[facility] LULLNEYFPM9972-43-91 02:51:0010.7[facility] RnpeainRFVJCEMZPX3102-15-57 02:51:00 74.5[facility] KftogueNYICPFWFRQ3309-44-37 02:51:000.7[facility]annHEMATOLOGY 2015-05-07 02:51:000.8[facility] CfhjnqyJHSZMXGWUZ5841-92-94 02:51:0012.5[facility] YpqsahoCNKMSDMCCE5599-09-92 02:51:004.9[facility] QzuthszQNWUXPFLWH1170-02-08 02:51:000.2[facility] SictoqzBWDQJTBOZM9717-63-28 02:51:000.1[facility] JKJIUJHXRV8103-33-87 02:51:001.4[facility] XhjpojhJUUITNUMUW3224-57-70 02:51:00 11.4[facility] QUOEW9525-50-70 02:51:006[facility] NYHMW1688-47-65 02:51:002[facility] BBQXZ2271-16-67 02:51:00 Moderate *ABN*(05/06/15 8:51 PM)[facility] HWGNG0254-27-96 02:51:00Negative (05/06/15 8:51 PM)[facility] JATVP6993-77-84 02:51:00Clear (05/06/15 8:51 PM)[facility] LHYNU5307-39-58 02:51:00Yellow *NA*(05/06/15 8:51 PM)[facility] VZRZB6348-06-38 02:51:001.019[facility] HQQES6096-83-55 02:51:006.0[facility] PPOUR2197-14-74 02:51:002.0[facility] STOOL 2015-05-07 02:51:00Small *ABN*(05/06/15 8:51 PM)[facility] STOOL 2015-05-07 02:51:00Negative *NA*(05/06/15 8:51 PM)[facility] CHEM 2015-05-07 02:51:00Negative (05/06/15 8:51 PM)[facility]annCARDIAC ENZYMES 2013-12-18 05:45:00<0.02[facility]CARD[facility]AC KVDAZEI7745-16-53 05:45:00<0.5 [facility] MGJKYES3761-70-07 05:45:0095[facility] LETRNBA9139-38-97 05:45:00<0.5[facility]annCHEM VGWXC0845-30-84 05:45:0029 [facility]CHE[facility] SFIAM8316-02-21 05:45:003.8[facility]annCHEM PANEL 2013-12-18 05:45:0010[facility]annCHE[facility] DYWDM9062-48-40 05:45:001.0[facility]annCHE[facility] VZQMO0900-80-91 05:45:06300Pnlmpivx HermannCHEM ZVPVE9209-15-78 05:45:002.3[facility]annCHEM VSKPD7255-65-19 05:45:0024[facility]annCHE[facility] QQCBE5695-28-21 05:45:004.4[facility]annCHE[facility] KEVUR3260-44-40 05:45:0023 [facility] GPBXY0358-09-28 05:45:17081Ycxgrjte HermannCHEM PANEL 2013-12-18 05:45:66421Ghldsmra [facility]annCHEM LDDMO6907-48-73 05:45:003.9[facility]annCHE[facility] CCMAZ8764-75-85 05:45:007.7[facility]annCHE[facility] JYCJH7393-39-33 05:45:008.9[facility]annCHE[facility] DZZIH8930-58-67 05:45:0020[facility]annCHE[facility] HJHAP6560-70-12 05:45:0030[facility]annCHE[facility] HKSWO1165-52-89 05:45:0080 [facility]annCHE[facility] AHWCH1401-89-60 05:45:0010.4[facility]annCHEM PANEL 2013-12-18 05:45:000.5[facility] NylhrhdWDPLZXDYHF3504-22-11 05:45:0032.7[facility] AshlawmEMPXLILHVE7910-29-15 05:45:00* Test Item Value Reference Range Interpretation Comments MCH (test code = MCH) 29.0 pg 27.0-31.0 [facility] WjalontVCNMLSODIF7955-75-16 05:45:0088.6[facility]annHEMATOLOGY 2013-12-18 05:45:0031.8[facility] YyixlykRPQJWBZHDZ5827-14-75 05:45:0010.4[facility] SulmhgwBPUUBMJLZR8505-92-98 05:45:007.6[facility] XexieygTGRHQEMQZN4853-13-03 05:45:12009Qozlwhjq HylcrsiCJRSZBNLFF4281-70-67 05:45:0013.8[facility] CIGNOSCAOY2173-75-48 05:45:003.59[facility] IenmofcPBBJMINUYO7123-91-27 05:45:00 9.6[facility] ZcjtvpjFABCFKOMIA8113-76-48 05:45:001.03[facility]annHEMATOLOGY 2013-12-18 05:45:00* Test Item Value Reference Range Interpretation Comments PTT (test code = PTT) 31.5 s 22.9-35.8 [facility] OpzezmrYMMMCLGNFC9659-29-90 05:45:00* Test Item Value Reference Range Interpretation Comments PT (test code = PT) 13.5 s 12.0-14.7 [facility] RslrxmdNBPMGNONCR1207-41-53 05:45:000.2[facility]annHEMATOLOGY 2013-12-18 05:45:000.2[facility] LmagxisUKMAKXYNHS1263-79-80 05:45:008.2[facility] ZarenjvABGFPIIWUO7950-37-66 05:45:0017.6[facility] RqmvivyBQCEXEUBGH4879-34-61 05:45:0073.8[facility] SjknzrjBZGHMCHHUT4754-41-11 05:45:001.7[facility] UTWRKFWISF7378-55-59 05:45:007.1[facility] UqgcyibCNKMFMMICP6873-39-76 05:45:000.8 [facility] ODYAH6650-44-03 05:45:002.0[facility] ZOUHT7295-92-59 05:45:00Negative (12/18/13 12:45 AM)[facility] FOJTG5270-18-15 05:45:00Negative (12/18/13 12:45 AM)[facility] LADWZ3963-21-47 05:45:00Negative (12/18/13 12:45 AM)[facility] PREOV3049-19-74 05:45:002[facility] HNRLI9490-95-80 05:45:00<1 [facility] UGMOM4661-74-65 05:45:00Clear (12/18/13 12:45 AM) [facility] XDMGA2199-76-02 05:45:006.0[facility] BJBSG5646-98-06 05:45:001.011[facility] BFVZU5417-28-29 05:45:00 Negative *NA*(12/18/13 12:45 AM)[facility]
--- NOTE | 2019-11-12 14:12 | NUR ---
Patient to my exam was no longer tachycardic, she states that initially her heart rate was high due to pain she was walking.
== END 2019-11-12 13:53 | disposition home or self-care (01) ==
LOC: FSED 13:50
DX: M10.9 Gout, unspecified (principal); M79.675 Pain in left toe(s); Z94.0 Kidney transplant status; I10 Essential (primary) hypertension
CPT/HCPCS: 99282; J7512

== ENCOUNTER 2020-01-28 19:11 | Emergency (ER) | payer SELFPAY | END 2020-01-28 19:25 | disposition left against medical advice (07) | LOC: FSED 19:20 | DX: R10.32 Left lower quadrant pain (principal) ==